=== PATIENT | male | born 1935 | race Caucasian/White ===

== ENCOUNTER 2020-01-11 11:22 | Emergency (ER) | payer MEDICARE, BC, SELFPAY ==
[2020-01-11 11:31] VITALS: BP 153/76; PULSE 79; RESP 16; TEMP 36.2; O2SAT 96
--- NOTE | 2020-01-11 11:43 | ED_ITS ---
HPI - Extremity Injury (Upper) <LENI Hopson - Last Filed: 01/11/20 16:37> General Chief Complaint: Extremity Injury, Upper Stated Complaint: Right hand laceration Time Seen by Provider: 01/11/20 11:31 Source: patient Mode of arrival: Ambulatory Limitations: no limitations History of Present Illness HPI narrative: 84yo male presents to the ED for a laceration on the top of his right hand. Patient states he was trying to take a bolt off a tractor when he hit is hand on the bolt which caused a laceration. Patient is unsure when his last Tdap was. Patient denies any severe pain, difficulty moving his hand, other injuries, redness, swelling, pus, nausea, vomiting, diarrhea, or any other concerns. Related Data Home Medications Medication Instructions Recorded Confirmed aspirin #0 08/26/17 Previous Rx's Medication Instructions Recorded tramadol 50 mg PO Q6H PRN #20 tab 08/26/17 Allergies Allergy/AdvReac Type Severity Reaction Status Date / Time ranitidine [RANITIDINE] Allergy Severe reaction Unverified 09/12/17 13:11 not known. reported from Primary MD Review of Systems <LENI Hopson - Last Filed: 01/11/20 16:37> Review of Systems Narrative: REVIEW OF SYSTEMS: GENERAL: Denies fever or chills. HENT: Denies head trauma. EYE: Denies double vision or vision loss. CARDIOVASCULAR: Denies syncope. MUSCULOSKELETAL: Denies weakness, or deformities. INTEGUMENTARY: Complains of right hand laceration, see HPI. NEURO: Denies numbness or tingling. Patient History <LENI Hopson - Last Filed: 01/11/20 16:37> Medical History No significant medical problems (Acute) Social History Smoking Status: Never smoker Smoking Status: Never smoker alcohol intake frequency: 0-2 drinks per day Substance Use Type: does not use Exam <LENI Hopson - Last Filed: 01/11/20 16:37> Initial Vital Signs Initial Vital Signs: Vital Signs Temperature 97.1 F L 01/11/20 11:31 Pulse Rate 79 01/11/20 11:31 Respiratory Rate 16 01/11/20 11:31 Blood Pressure 153/76 H 01/11/20 11:31 Pulse Oximetry 96 01/11/20 11:31 PHYSICAL EXAMINATION: GENERAL: Well groomed, alert, and cooperative. Answers questions promptly and appropriately. Vital signs noted. HENT: Normocephalic, atraumatic. RESPIRATORY: Normal respiratory rate, trachea midline, airway patent. No stridor, nasal flaring or accessory muscle use. MUSCULOSKELETAL: Full range of motion of right hand and fingers, no tendons visualized. Normal gait and coordination. Equal tone and mass bilaterally. EXTREMITIES: CMS intact. Moves all extremities. SKIN: Warm, dry, soft, appropriate color for ethnicity. 4cm arrow-shaped laceration to lateral aspect of R hand. Wound bed with small amount of sub-Q tissue. Bleeding controlled. No surrounding erythema. No foreign bodies. Wound irrigated extensively. No tenderness palpation of hand, metatarsals, or phalanges. NEURO: Alert and Oriented X 3. Good coordination. PSYCH: Appropriate affect and mood. <Josse Herman MD - Last Filed: 01/11/20 18:49> Initial Vital Signs Initial Vital Signs: Vital Signs Temperature 97.1 F L 01/11/20 11:31 Pulse Rate 79 01/11/20 11:31 Respiratory Rate 16 01/11/20 11:31 Blood Pressure 153/76 H 01/11/20 11:31 Pulse Oximetry 96 01/11/20 11:31 Procedures <LENI Hopson - Last Filed: 01/11/20 16:37> Laceration Repair Laceration 1: Site: upper extremity Side (If applicable): right Size (cm): 4 Description: flap Depth: simple, single layer Local Anesthetic: lidocaine 2% and with epi Amount of anesthesia used (mL): 4 Pre-repair: wound explored and irrigated extensively Skin layer closed with: nylon Size (cm): 4-0 Number of sutures: 4 Technique: simple, interrupted and horizontal mattress Course <LENI Hopson - Last Filed: 01/11/20 16:37> Orders Ordered: Discontinued Medications Bacitracin (Bacitracin) 1 applic TOP NOW ONE Stop: 01/11/20 12:05 Last Admin: 01/11/20 12:10 Dose: 1 applic Documented by: RMARTIN Diphtheria/Tetanus/Acell Pertussis (Adacel) 0.5 ml IM .ONCE ONE Stop: 01/11/20 11:38 Last Admin: 01/11/20 11:44 Dose: 0.5 ml Documented by: MITALI Lidocaine/Epinephrine (Xylocaine 2% W/Epi) 20 ml INJ INTRA-OP ONE Stop: 01/11/20 11:43 Last Admin: 01/11/20 11:45 Dose: 20 ml Documented by: MITALI Vital Signs Vital signs: Vital Signs - 8 hr 01/11/20 11:31 Temperature 97.1 F L Pulse Rate 79 Respiratory Rate 16 Blood Pressure 153/76 H Pulse Oximetry 96 <Josse Herman MD - Last Filed: 01/11/20 18:49> Orders Ordered: Discontinued Medications Bacitracin (Bacitracin) 1 applic TOP NOW ONE Stop: 01/11/20 12:05 Last Admin: 01/11/20 12:10 Dose: 1 applic Documented by: RMARTIN Diphtheria/Tetanus/Acell Pertussis (Adacel) 0.5 ml IM .ONCE ONE Stop: 01/11/20 11:38 Last Admin: 01/11/20 11:44 Dose: 0.5 ml Documented by: MITALI Lidocaine/Epinephrine (Xylocaine 2% W/Epi) 20 ml INJ INTRA-OP ONE Stop: 01/11/20 11:43 Last Admin: 01/11/20 11:45 Dose: 20 ml Documented by: MITALI Vital Signs Vital signs: Vital Signs - 8 hr 01/11/20 11:31 Temperature 97.1 F L Pulse Rate 79 Respiratory Rate 16 Blood Pressure 153/76 H Pulse Oximetry 96 [facility] - Extremity Injury (Upper) <LENI Hopson - Last Filed: 01/11/20 16:37> Medical Records Attestation: I reviewed the patient's medical records. Lab Data Attestation: I reviewed the patient's lab results. MDM Narrative Medical decision making narrative: Simple laceration repair without concern for tendon involvement given superficial nature, subcu tissue visualized amount of Tums visualized, full range of motion against resistance of hand and fingers. Patient's tdap is updated. No signs of infection. No concern for bony involvement due to superficial nature, lack of significant pain with palpation to hand or fingers. Return precautions given, patient verbalized understanding of plan of care. Discharge Plan Departure Patient Disposition: Home Clinical Impression: Laceration Discharge Date/Time: 01/11/20 12:28 Instructions: DI for Laceration Repair Activity Restrictions/Additional Instructions: Thank you for entrusting me with your care today. As discussed, I have placed 4 sutures in your wound, 1 of them is a mattress suture. We have placed bacitracin and gauze on your wound, please leave this dressing on for the next 24 hours. After that, you may remove the dressing and wash the area gently with soap and water. Do not soak your wound in any water until the sutures are removed. The sutures will need to be removed in 10 days. No foreign bodies were found in your wound today. While there is low-risk for infection at this time, retained foreign bodies and infection are always possible with any cut or break in the skin. Please monitor the wound closely and be re-evaluated immediately if you develop any signs of infection such as pus, increasing redness, increasing pain, fevers, or any other concerns. Return emergency department for any new or worsening symptoms. Prescriptions: No Action aspirin 81 MG tablet,delayed release (DR/EC) Qty: 0 RF: 0 tramadol 50 MG tablet 50 mg PO Q6H PRNQty: 20 RF: 0 Referrals: Axel Purvis MD [Primary Care Provider] -
[2020-01-11] MEDS: TET,DIPH,PERTUSS(ACELL),VAC/PF 0.5 ML SYRINGE IM (11:44)
[2020-01-11] MEDS: LIDOCAINE 2% W/EPI INJ 20 ML INJ (11:45)
[2020-01-11] MEDS: BACITRACIN OINT 0.9 GM PCKT 1 APPLIC TOP (12:10)
--- NOTE | 2020-01-11 12:28 | PC.NURSE ---
Bacitracin applied to wound and wound covered with sterile, non-adherent dressing and covered with gauze wrap.
== END 2020-01-11 12:28 | disposition home or self-care (01) ==
PROVIDERS: Emergency Provider Nurse Practitioner; Family Provider Family Medicine; PCP Family Medicine
DX: S61.411A Laceration without foreign body of right hand, initial encounter (principal); W27.8XXA Contact with other nonpowered hand tool, initial encounter; Z23 Encounter for immunization
CPT/HCPCS: 12002; 90471; 99283; 99284; 90715

== ENCOUNTER 2020-03-22 01:09 | Emergency (ER) | payer MEDICARE, BC, SELFPAY ==
--- NOTE | 2020-03-22 01:13 | ED_ITS ---
HPI - Anxiety General Chief Complaint: Altered Mental Status Stated Complaint: has some anxiety Time Seen by Provider: 03/22/20 01:10 Source: patient and family Mode of arrival: Ambulatory Limitations: no limitations History of Present Illness HPI narrative: 84-year-old male nonsmoker with history of GERD presents with his daughter at his 's request due to increasing confusion over the past few months. He has had no specific neurologic complaints such as blurred vision, trouble speech or focal findings such as numbness, tingling or weakness. He has had no change in medications or diet. He has had no injuries or falls. He has had increased difficulty dealing with stressful situations and seems to become flustered and anxious. Most recently the family had a problem with a sump pump and this is something that not only could he normally fix but would certainly not become anxious about, his daughter states that this has kept him awake at night and he has had trouble sleeping for the past 2 nights. He denies any chest pain or shortness of breath. He has had no fever or chills. MD complaint: anxiety Related Data Home Medications Medication Instructions Recorded Confirmed aspirin #0 08/26/17 Previous Rx's Medication Instructions Recorded tramadol 50 mg PO Q6H PRN #20 tab 08/26/17 Allergies Allergy/AdvReac Type Severity Reaction Status Date / Time ranitidine [RANITIDINE] Allergy Severe reaction Unverified 09/12/17 13:11 not known. reported from Primary MD Review of Systems Review of Systems ROS Unobtainable: All systems reviewed & are unremarkable except as noted in HPI and below Constitutional Constitutional: Denies chills, Reports difficulty sleeping, Denies fatigue, Denies fever(s), Denies frequent falls, Denies lethargy and Denies weakness Eyes Eyes: Denies change in vision, Denies eye discharge, Denies irritation and Denies loss of vision ENT Ears, Nose, Mouth, and Throat: Denies change in voice, Denies dizziness, Denies neck pain, Denies sore throat and Denies throat swelling Cardiovascular Cardiovascular: Denies chest pain, Denies irregular heart rhythm, Denies lightheadedness, Denies palpitations, Denies dyspnea, Denies dyspnea on exertion and Denies orthopnea Respiratory Respiratory: Denies cough, Denies dyspnea, Denies dyspnea on exertion and Denies wheezing Gastrointestinal Gastrointestinal: Denies abdominal pain, Denies change in bowel habits, Denies diarrhea, Denies nausea and Denies vomiting Musculoskeletal Musculoskeletal: Denies neck pain and Denies numbness Integumentary/Breasts Skin/Breast: Denies pruritus, Denies erythema, Denies rash and Denies wounds Neurologic Neurologic: Denies behavioral changes, Denies confusion, Denies dizziness, Denie s frequent falls, Denies loss of vision, Denies numbness and Denies weakness Psychiatric Psychiatric: Denies anxiety, Denies behavioral changes, Denies confusion, Denies depression, Denies homicidal ideation and Denies suicidal ideation Endocrine Endocrine: Denies fatigue, Denies flushing and Denies palpitations Hematologic/Lymphatic Hematologic/Lymphatic: Denies easy bruising Allergic/Immunologic Allergic/Immunologic: Denies urticaria, Denies throat swelling and Denies wheezing Patient History Medical History (Updated 03/22/20 @ 02:15 by Alexander Antoine DO) No significant medical problems (Acute) Social History Smoking Status: Never smoker Smoking Status: Never smoker alcohol intake frequency: 0-2 drinks per day Substance Use Type: does not use Exam Narrative Exam Narrative: GENERAL: [84] year old patient appears stated age. Well- nourished, well-developed patient, in mild distress. Pleasantly confused, some repetitive questioning HEAD: Atraumatic. Normocephalic. EYES: Pupils equal round and reactive. Extraocular motions intact. No scleral icterus. No injection or drainage. ENT: Nose without bleeding, purulent drainage. Throat without erythema, tonsillar hypertrophy or exudate. Airway patent. NECK: Trachea midline. Non tender CARDIOVASCULAR: Regular rate and rhythm without murmurs, gallops, or rubs. RESPIRATORY: Clear to auscultation. Breath sounds equal bilaterally. No wheezes, rales, or rhonchi. GASTROINTESTINAL: Abdomen soft, non-tender, nondistended. EXTREMITIES: No edema or joint tenderness. BACK: Nontender without deformity or crepitance. No flank tenderness. NEURO: No focal findings. NIHSS 0 SKIN: No rash or erythema of visible areas Initial Vital Signs Initial Vital Signs: Vital Signs Temperature 97.1 F L 03/22/20 01:15 Pulse Rate 65 03/22/20 01:15 Respiratory Rate 20 03/22/20 01:15 Blood Pressure 175/85 H 03/22/20 01:15 Pulse Oximetry 97 03/22/20 01:15 Scores NIH Stroke Scale Level of Conciousness: Alert, keenly responsive Ask month/age: Answers both questions correctly. Open/close eyes, close hand: Performs both tasks correctly Best gaze horizontal: Normal Visual ha: No visual loss Facial palsy: Normal symetrical movement Left arm drift: No drift for full 10 sec Right arm drift: No drift for full 10 sec Left leg drift: No drift for full 5 sec Right leg drift: No drift for full 5 sec Limb ataxia: Absent Sensory on face/arms/legs: Normal, no sensory loss Best language: No aphasia, normal Dysarthria: Normal Extinction or inattention: No abnormality Total NIH Stroke scale score: 0 Course Orders Ordered: ED Orders 03/22/20 01:30 CT head/brain wo con Stat 03/22/20 01:33 Complete Blood Count AUTO DIFF Stat Comprehensive Metabolic Panel Stat Magnesium Stat Discontinued Medications Sodium Chloride (Normal Saline 0.9%) 1,000 mls @ 125 mls/hr IV CONT BRAD Last Admin: 03/22/20 02:28 Dose: Not Given Documented by: JAYLON Vital Signs Vital signs: Vital Signs - 8 hr 03/22/20 01:15 03/22/20 02:29 Temperature 97.1 F L Pulse Rate 65 58 L Respiratory Rate 20 17 Blood Pressure 175/85 H 160/83 H Pulse Oximetry 97 97 MDM - Anxiety Lab Data Result diagrams: 03/22/20 01:33 03/22/20 01:33 Labs: Lab Results 03/22/20 03/22/20 Range/Units 01:33 01:33 WBC 7.0 (4.5-11.0) X10^3/uL RBC 4.81 (4.5-5.9) X10^6/uL Hgb 14.3 (13.5-17.5) g/dL Hct 43.7 (41-53) % MCV 90.9 (80-100) fL MCH 29.7 (26-34) PG MCHC 32.7 (30-36) % RDW 14.8 (11.6-14.8) % Plt Count 151 (150-400) X10^3/uL Neut % (Auto) 38.8 L (50-75) % Lymph % (Auto) 53.2 H (25-40) % [place] % (Auto) 6.0 (3-14) % Eos % (Auto) 1.5 L (2-4) % Baso % (Auto) 0.5 (0-2) % Neut # (Auto) 2700 (8599-0898) /uL Lymph # (Auto) 3700 (3803-5050) /uL [place] # (Auto) 400 (0-900) /uL Eos # (Auto) 100 (0-450) /uL Baso # (Auto) 0 (0-100) /uL Sodium 140 (137-145) mmol/L Potassium 4.2 (3.4-5.1) mmol/L Chloride 109 H (98-107) mmol/L Carbon Dioxide 26 (22-32) mmol/L BUN 19 (9-20) mg/dL Creatinine 0.86 (0.66-1.25) mg/dL Estimated GFR > 60.0 (>60) mL/min BUN/Creatinine Ratio 22.1 H (6-22) Glucose 92 (80-110) mg/dL Calcium 10.4 H (8.4-10.2) mg/dL Magnesium 2.2 (1.6-2.3) mg/dL Total Bilirubin 1.2 (0.2-1.3) mg/dL AST 27 (17-59) IU/L ALT 20 (<50) IU/L Alkaline Phosphatase 82 (38-126) U/L Total Protein 6.6 (6.3-8.2) g/dL Albumin 3.7 (3.5-5.0) g/dL Globulin 2.9 (1.7-4.1) g/dL Albumin/Globulin Ratio 1.3 (1.0-2.8) Urine Dip Bedside Urine Glucose Negative Bedside Urine Bilirubin - Negative Bedside Urine Ketone - Negative Urine Specific [place] 1.015 Bedside Urine Occult Blood - Negative Bedside Urine pH 6.0 Bedside Urine Protein - Negative Bedside Urine Urobilinogen - Negative Bedside Urine Nitrite - Negative Bedside Urine Leukocytes - Negative Esterase Imaging Data CT scan - head: Radiologist's Impression: Generalized involutional changes noted, consistent with age. No acute abnormality. MDM Narrative Medical decision making narrative: Multiple diagnoses considered including stroke, but thought less likely given lack of focal findings and normal CT. UTI considered, but thought less likely given normal POC. Electrolyte abnormality considered, but no significant findings on labs. These chronic changes could certainly be early dementia, will defer further evaluation to PCP. Return precautions given to patient and daughter, questions answered to apparent satisfaction Discharge Plan Departure Patient Disposition: Home Clinical Impression: Chronic confusion, Anxiety Discharge Date/Time: 03/22/20 02:41 Instructions: DI for Anxiety -- Adult Activity Restrictions/Additional Instructions: *You have been diagnosed with [anxiety and increasing confusion. Your exam, labs, CT scan are all very reassuring. ] *What to do: *Continue to take medications as directed *Follow up with your primary care provider in 2-3 days, call for an appointment. Let them know you were seen in the Emergency Department and that we ask that you be seen in follow up *Return to ER if you should have any new, worsening or concerning symptoms Prescriptions: No Action aspirin 81 MG tablet,delayed release (DR/EC) Qty: 0 RF: 0 tramadol 50 MG tablet 50 mg PO Q6H PRNQty: 20 RF: 0 Referrals: Axel Purvis MD [Primary Care Provider] -
[2020-03-22 01:15] VITALS: BP 175/85; PULSE 65; RESP 20; TEMP 36.2; O2SAT 97; BMI 31.3
--- NOTE | 2020-03-22 01:30 | DI.CT.S_ITS ---
PROCEDURE: CT HEAD/BRAIN WO CON INDICATIONS: confusion, altered, personality change TECHNIQUE: Noncontrast 4.5 mm thick angled axial sections acquired from the foramen magnum to the vertex, with coronal and sagittal reformats. For radiation dose reduction, the following was used: automated exposure control, adjustment of mA and/or kV according to patient size. COMPARISON: [facility], CT, SOFT TISSUE NECK W&WO CONTRAST, 09/29/2016, 8:03. [facility], MR, BRAIN W&WO CONTRAST, 09/06/2016, 10:51. FINDINGS: Image quality: Excellent. CSF spaces: Basal cisterns are patent. No extra-axial fluid collections. The ventricles are symmetric in size and shape. Brain: No intracranial bleeds or masses. There is cerebral volume loss for age, with resultant ventricular and sulcal prominence. There are periventricular and deep white matter chronic small vessel ischemic changes. There is intracranial internal carotid artery atherosclerosis. Low attenuation is present in the left frontal lobe, possibly related to old ischemia or trauma. It is unchanged. Skull and face: Calvarium and visualized facial bones appear intact, without suspicious lesions. Sinuses: Visualized sinuses and mastoids are clear. IMPRESSION: 1. No acute intracranial process. 2. Moderate atrophy and chronic microvascular ischemic changes. The above findings are concordant with preliminary report. Dictated by: Kenyatta Mejia M.D. on 03/22/2020 at 9:20 Approved by: Kenyatta Mejia M.D. on 03/22/2020 at 9:21
[2020-03-22 01:44] LABS: Add Manual Diff / Slide Review NO; Basophils Absolute Auto 0 /uL (0-100); Basophils Percent Auto 0.5 % (0-2); Eosinophils Absolute Auto 100 /uL (0-450); Eosinophils Percent Auto 1.5 % (2-4); Hematocrit 43.7 % (41-53); Hemoglobin 14.3 g/dL (13.5-17.5); Lymphocytes Absolute Auto 3700 /uL (1100-4500); Lymphocytes Percent Auto 53.2 % (25-40); Mean Corpuscular HGB Conc 32.7 % (30-36); Mean Corpuscular Hemoglobin 29.7 PG (26-34); Mean Corpuscular Volume 90.9 fL (80-100); Monocytes Absolute Auto 400 /uL (0-900); Neutrophils Absolute Auto 2700 /uL (1500-7000); Neutrophils Percent Auto 38.8 % (50-75); Platelet Count 151 X10^3/uL (150-400); Red Blood Cell Count 4.81 X10^6/uL (4.5-5.9); Red Cell Distribution Width 14.8 % (11.6-14.8)
[2020-03-22 01:51] LABS: Alanine Aminotransferase 20 IU/L (<50); Albumin 3.7 g/dL (3.5-5.0); Albumin Globulin Ratio 1.3 (1.0-2.8); Alkaline Phosphatase 82 U/L (38-126); Aspartate Aminotransferase 27 IU/L (17-59); BUN Creatinine Ratio 22.1 (6-22); Bilirubin Total 1.2 mg/dL (0.2-1.3); Blood Urea Nitrogen 19 mg/dL (9-20); Calcium 10.4 mg/dL (8.4-10.2); Carbon Dioxide 26 mmol/L (22-32); Chloride 109 mmol/L (98-107); Estimated Glomerular Filt Rate > 60.0 mL/min (>60); Globulin 2.9 g/dL (1.7-4.1); Glucose 92 mg/dL (80-110); HEMOLYSIS < 15 (0-50); Magnesium 2.2 mg/dL (1.6-2.3); Potassium 4.2 mmol/L (3.4-5.1); Sodium 140 mmol/L (137-145); Total Protein 6.6 g/dL (6.3-8.2)
[2020-03-22 02:29] VITALS: BP 160/83; PULSE 58; RESP 17; O2SAT 97
== END 2020-03-22 02:41 | disposition home or self-care (01) ==
PROVIDERS: Emergency Provider Emergency Medicine; Family Provider Family Medicine; PCP Family Medicine
DX: R41.0 Disorientation, unspecified (principal); F41.9 Anxiety disorder, unspecified
CPT/HCPCS: 36415; 70450; 80053; 81003; 83735; 85025; 93005; 93010; 99283; 99284

== ENCOUNTER 2021-07-02 13:25 | Inpatient (IN) | payer MEDICARE, BC, SELFPAY ==
[2021-07-02] VITALS (52 sets, daily range): BP systolic 92–162; BP diastolic 54–94; PULSE 56–72; RESP 18–41; TEMP 36.7; O2SAT 92–98
--- NOTE | 2021-07-02 13:49 | DI.RAD.S_ITS ---
PROCEDURE: XR CHEST 1V INDICATIONS: chest pain TECHNIQUE: One view of the chest was acquired. COMPARISON: None. FINDINGS: Surgical changes and devices: None. Lungs and pleura: Minimal bibasilar atelectasis and or infiltrate accentuated by low lung volumes. Mediastinum: Mediastinal contours appear normal. Heart size is normal. Atherosclerotic vascular calcification noted in the aortic arch. Bones and chest wall: No suspicious bony lesions. Overlying soft tissues appear unremarkable. IMPRESSION: Minimal bibasilar atelectasis and infiltrate accentuated by low lung volumes Approved by: Memo Villagran M.D. on 07/02/2021 at 14:32
[2021-07-02 14:07] LABS: Add Manual Diff / Slide Review NO; Basophils Absolute Auto 0 /uL (0-100); Basophils Percent Auto 0.3 % (0-2); Eosinophils Absolute Auto 0 /uL (0-450); Hematocrit 41.8 % (41-53); Hemoglobin 14.1 g/dL (13.5-17.5); Lymphocytes Absolute Auto 2700 /uL (1100-4500); Lymphocytes Percent Auto 30.3 % (25-40); Mean Corpuscular HGB Conc 33.7 % (30-36); Mean Corpuscular Hemoglobin 29.7 PG (26-34); Mean Corpuscular Volume 88.3 fL (80-100); Monocytes Absolute Auto 800 /uL (0-900); Monocytes Percent Auto 8.6 % (3-14); Neutrophils Absolute Auto 5500 /uL (1500-7000); Neutrophils Percent Auto 60.8 % (50-75); Platelet Count 109 X10^3/uL (150-400); Red Blood Cell Count 4.74 X10^6/uL (4.5-5.9); Red Cell Distribution Width 15.2 % (11.6-14.8)
[2021-07-02 14:12] LABS: INR 1.2 (0.9-1.3); Prothrombin Time 13.1 SECONDS (10.1-12.7)
[2021-07-02 14:14] LABS: PTT Partial Thromboplastin Tim 29 SECONDS (26.4-36.2)
[2021-07-02 14:16] LABS: Alanine Aminotransferase 30 IU/L (<50); Albumin 3.9 g/dL (3.5-5.0); Albumin Globulin Ratio 1.4 (1.0-2.8); Alkaline Phosphatase 69 U/L (38-126); Aspartate Aminotransferase 77 IU/L (17-59); BUN Creatinine Ratio 24.4 (6-22); Bilirubin Total 0.9 mg/dL (0.2-1.3); Blood Urea Nitrogen 31 mg/dL (9-20); Calcium 10.4 mg/dL (8.4-10.2); Carbon Dioxide 23 mmol/L (22-32); Chloride 107 mmol/L (98-107); Estimated Glomerular Filt Rate 54.2 mL/min (>60); Globulin 2.7 g/dL (1.7-4.1); Glucose 120 mg/dL (80-110); Lipase 44 U/L (23-300); Magnesium 2.1 mg/dL (1.6-2.3); Potassium 3.8 mmol/L (3.4-5.1); Sodium 137 mmol/L (137-145); Total Protein 6.6 g/dL (6.3-8.2)
[2021-07-02 14:22] LABS: Creatine Kinase 2126 U/L (55-170)
[2021-07-02 14:28] LABS: NT-proBNP (BNP-Adult 18+) 646 pg/mL (<450); Troponin I 0.106 ng/mL (0.01-0.034)
[2021-07-02 14:36] LABS: COVID19 -Nasal RAPID POSITIVE (Negative)
[2021-07-02] MEDS: SODIUM CHLORIDE 0.9% 1,000 ML 125 ML IV (14:36)
[2021-07-02 14:48] LABS: CKMB % Relative Index 0.7 % (1.5-5.0); HEMOLYSIS 19 (0-50)
--- NOTE | 2021-07-02 15:32 | ED_ITS ---
HPI - General Adult <Corry Hanson MD - Last Filed: 07/03/21 14:55> General Chief complaint: Weakness Stated complaint: DEHYDRATED,FALL,COUGH Time Seen by Provider: 07/02/21 14:36 Source: patient and family Mode of arrival: Wheelchair History of Present Illness HPI narrative: 85-year-old gentleman with a history of prostate cancer, hyperlipidemia no prior coronary artery disease vaccinated against COVID presents complaining of weakness. Apparently he would stand up this morning was so weak that he simply slumped to the floor(did not hurt himself with this fall) and was unable to get up. His daughter notes that she was up visiting 1 week ago and he was in his usual state of good health at that time. Six days ago he apparently developed a slight cough. Throughout all of this time he has had no dyspnea, orthopnea, palpitations, overt chest pain, localizing weakness or paresthesia, headaches or fevers.He is very hard of hearing. Related Data Home Medications Medication Instructions Recorded Confirmed aspirin 81 mg tablet,delayed 81 mg PO DAILY #0 08/26/17 07/02/21 release donepezil 5 mg tablet 5 mg PO BEDTIME 07/02/21 07/02/21 escitalopram oxalate 10 mg tablet 10 mg PO DAILY 07/02/21 07/02/21 mirtazapine 15 mg tablet 7.5 mg PO BEDTIME 07/02/21 07/02/21 rosuvastatin 20 mg tablet 20 mg PO BEDTIME 07/02/21 07/02/21 Allergies Allergy/AdvReac Type Severity Reaction Status Date / Time ranitidine [RANITIDINE] Allergy Severe reaction Verified 07/02/21 13:55 not known. reported from Primary MD Review of Systems <Corry Hanson MD - Last Filed: 07/03/21 14:55> Review of Systems Narrative: Remainder of complete review of systems is otherwise unremarkable except for that included in the HPI. Patient History <Corry Hanson MD - Last Filed: 07/03/21 14:55> Medical History COVID-19 Hyperlipidemia No significant medical problems Prostate cancer Surgical History H/O hemorrhoidectomy History of herniorrhaphy Hx of cholecystectomy Social History household members: spouse, family and children Smoking Status: Never smoker Smoking Status: Never smoker alcohol intake frequency: 0-2 drinks per day Substance Use Type: does not use Exam <Corry Hanson MD - Last Filed: 07/03/21 14:55> Initial Vital Signs Initial Vital Signs: Vital Signs Temperature 98.1 F 07/02/21 13:30 Pulse Rate 68 07/02/21 13:30 Respiratory Rate 22 07/02/21 13:30 Blood Pressure 145/74 H 07/02/21 13:30 Pulse Oximetry 92 07/02/21 13:30 General: Healthy appearing, in no acute distress. Very hard of hearing Well- nourished well-developed HEENT: Moist mucous membranes, normal sclera with reactive pupils, Neck: No JVD, supple Respiratory: Lungs are clear to auscultation, no wheezing no rales no rhonchi. Full and symmetrical air movement Cardiac: Regular rate and rhythm no murmurs no bruits Abdomen: Soft, nontender, good bowel tones, no flank pain Skin: Warm and dry, no rashes Neurologic: Globally weak but Grossly neurologically intact with no obvious asymmetries or abnormalities Extremities: No trauma, well perfused Psych: Cooperative, appropriate insight and affect <Gaby Rebolledo DO - Last Filed: 07/04/21 00:18> Initial Vital Signs Initial Vital Signs: Vital Signs Temperature 98.1 F 07/02/21 13:30 Pulse Rate 68 07/02/21 13:30 Respiratory Rate 22 07/02/21 13:30 Blood Pressure 145/74 H 07/02/21 13:30 Pulse Oximetry 92 07/02/21 13:30 Course <Corry Hanson MD - Last Filed: 07/03/21 14:55> Orders Ordered: ED Orders 07/03/21 15:30 PTT [Partial Thromboplastin Time] Q6H Acetaminophen (Acetaminophen 325 Mg Tablet) 650 mg PO Q6HR PRN PRN Reason: Fever Aspirin (Aspirin Ec 81 Mg Tablet) 81 mg PO DAILY BRAD Last Admin: 07/03/21 10:20 Dose: 81 mg Documented by: MALIKA Docusate Sodium (Docusate 100 Mg Capsule) 100 mg PO BID [facility] Last Admin: 07/03/21 20:54 Dose: 100 mg Documented by: [email or web address] Donepezil HCl (Donepezil 5 Mg Tablet) 5 mg PO BEDTIME [facility] Last Admin: 07/03/21 20:54 Dose: 5 mg Documented by: [email or web address] Admin: 07/02/21 20:43 Dose: 5 mg Documented by: ALEKSANDRA Escitalopram Oxalate (Escitalopram 10 Mg Tablet) 10 mg PO DAILY [facility] Last Admin: 07/03/21 10:20 Dose: 10 mg Documented by: MALIKA Heparin Sodium/Dextrose (Heparin Drip) 25,000 unit in 500 mls @ 20 mls/hr IV CONT BRAD; Protocol Last Admin: 07/03/21 20:35 Dose: 800 units/hr, 16 mls/hr Documented by: [email or web address] Titration: 07/03/21 20:35 Dose: 800 units/hr, 16 mls/hr Documented by: [email or web address] Titration: 07/03/21 05:19 Dose: 800 units/hr, 16 mls/hr Documented by: Titration: 07/02/21 23:51 Dose: 850 units/hr, 17 mls/hr Documented by: Titration: 07/02/21 22:49 Dose: 0 units/hr, 0 mls/hr Documented by: Admin: 07/02/21 15:57 Dose: 1,000 units/hr, 20 mls/hr Documented by: ALEKSANDRA Magnesium Hydroxide (Magnesium Hydroxide 30 Ml Udc) 30 ml PO BID [facility] Last Admin: 07/03/21 20:57 Dose: 30 ml Documented by: [email or web address] Metoprolol Tartrate (Metoprolol Ir 25 Mg Tablet) 25 mg PO BID [facility] Last Admin: 07/03/21 17:35 Dose: Not Given Documented by: Admin: 07/03/21 17:34 Dose: 25 mg Documented by: CHRIS Mirtazapine (Mirtazapine 15 Mg Tablet) 7.5 mg PO BEDTIME [facility] Last Admin: 07/03/21 20:54 Dose: 7.5 mg Documented by: [email or web address] Admin: 07/02/21 20:43 Dose: 7.5 mg Documented by: ALEKSANDRA Morphine Sulfate (Morphine 2 Mg/Ml Inj) 2 mg IV Q5MIN PRN PRN Reason: Chest Pain Naloxone HCl (Naloxone 0.4 Mg/Ml Vial) 0.2 mg IV Q2MIN PRN PRN Reason: Opiate Reversal Nitroglycerin (Nitroglycerin 0.4 Mg Sl Tab) 0.4 mg SL [id number] PRN PRN Reason: Chest Pain Pantoprazole Sodium (Pantoprazole Dr 40 Mg Tablet) 40 mg PO 0700 [facility] Discontinued Medications Aspirin (Aspirin 81 Mg Chew Tab) 324 mg PO NOW ONE Stop: 07/02/21 17:38 Last Admin: 07/02/21 17:51 Dose: 324 mg Documented by: ALEKSANDRA Atorvastatin Calcium (Atorvastatin 20 Mg Tablet) 80 mg PO NOW ONE Stop: 07/02/21 21:34 Last Admin: 07/02/21 22:34 Dose: 80 mg Documented by: ALEKSANDRA Donepezil HCl (Donepezil 5 Mg Tablet) 5 mg PO BEDTIME [facility] Escitalopram Oxalate (Escitalopram 10 Mg Tablet) 10 mg PO DAILY [facility] Heparin Sodium (Porcine) (Heparin 5,000 Unit/Ml Vial) 5,000 unit IV NOW ONE Stop: 07/02/21 15:44 Last Admin: 07/02/21 15:56 Dose: 5,000 unit Documented by: ALEKSANDRA Sodium Chloride (Normal Saline 0.9%) 1,000 mls @ 125 mls/hr IV BOLUS ONE Stop: 07/02/21 21:57 Last Infusion: 07/02/21 15:42 Dose: 0 mls/hr Documented by: Admin: 07/02/21 14:36 Dose: 125 mls/hr Documented by: ALEKSANDRA Sodium Chloride (Normal Saline 0.9%) 500 mls @ 1,000 mls/hr IV BOLUS ONE Stop: 07/02/21 16:12 Last Infusion: 07/02/21 17:06 Dose: 0 mls/hr Documented by: Admin: 07/02/21 15:58 Dose: 1,000 mls/hr Documented by: ALEKSANDRA Heparin Sodium/Dextrose (Heparin Drip) 25,000 unit in 500 mls @ 21.816 mls/hr IV CONT BRAD; Protocol Last Admin: 07/03/21 18:23 Dose: Not Given Documented by: CHRIS Heparin Sodium/Dextrose (Heparin Drip) 25,000 unit in 500 mls @ 21.816 mls/hr IV CONT BRAD; Protocol Last Admin: 07/03/21 18:23 Dose: Not Given Documented by: CHRIS Mirtazapine (Mirtazapine 15 Mg Tablet) 7.5 mg PO BEDTIME [facility] Naloxone HCl (Naloxone 0.4 Mg/Ml Vial) 0.2 mg IV Q2MIN PRN PRN Reason: Opiate Reversal Naloxone HCl (Naloxone 0.4 Mg/Ml Vial) 0.2 mg IV Q2MIN PRN PRN Reason: Opiate Reversal Vital Signs Vital signs: Vital Signs - 8 hr 07/03/21 07:00 07/03/21 07:15 07/03/21 07:30 Pulse Rate 77 70 76 Respiratory Rate 29 H 27 H 23 Blood Pressure 126/73 126/72 121/68 Pulse Oximetry 92 93 94 07/03/21 07:45 07/03/21 08:00 07/03/21 08:15 Pulse Rate 72 70 75 Respiratory Rate 31 H 29 H 34 H Blood Pressure 116/63 131/76 113/68 Pulse Oximetry 92 92 92 07/03/21 08:30 07/03/21 08:45 07/03/21 09:00 Pulse Rate 80 80 79 Respiratory Rate 32 H 34 H 32 H Blood Pressure 118/70 127/71 125/63 Pulse Oximetry 91 92 92 07/03/21 09:15 07/03/21 09:16 07/03/21 09:30 Pulse Rate 89 87 86 Respiratory Rate 31 H 28 H 32 H Blood Pressure 126/69 114/66 Pulse Oximetry 93 07/03/21 09:45 07/03/21 10:00 07/03/21 10:15 Pulse Rate 75 73 77 Respiratory Rate 32 H 28 H 23 Blood Pressure 115/62 125/69 125/69 Pulse Oximetry 91 92 93 07/03/21 10:30 07/03/21 10:45 07/03/21 11:00 Pulse Rate 78 69 71 Respiratory Rate 31 H 34 H 32 H Blood Pressure 134/69 117/64 125/67 Pulse Oximetry 93 92 94 07/03/21 11:15 07/03/21 11:30 07/03/21 11:31 Pulse Rate 71 75 77 Respiratory Rate 30 H 29 H 31 H Blood Pressure 112/60 113/55 L Pulse Oximetry 93 93 93 07/03/21 11:45 07/03/21 12:00 07/03/21 12:15 Pulse Rate 72 75 79 Respiratory Rate 28 H 32 H 31 H Blood Pressure 129/71 121/68 136/67 Pulse Oximetry 93 94 92 07/03/21 12:30 07/03/21 12:45 07/03/21 12:46 Pulse Rate 80 79 79 Respiratory Rate 32 H 32 H 32 H Blood Pressure 124/66 99/58 L Pulse Oximetry 93 92 91 07/03/21 13:00 07/03/21 13:15 07/03/21 13:30 Pulse Rate 70 74 71 Respiratory Rate 29 H 29 H 31 H Blood Pressure 117/59 L 124/69 120/63 Pulse Oximetry 91 92 92 07/03/21 13:45 Pulse Rate 70 Respiratory Rate 29 H Blood Pressure 101/61 Pulse Oximetry 92 <Gaby Rebolledo DO - Last Filed: 07/04/21 00:18> Orders Ordered: ED Orders 07/03/21 15:30 PTT [Partial Thromboplastin Time] Q6H Acetaminophen (Acetaminophen 325 Mg Tablet) 650 mg PO Q6HR PRN PRN Reason: Fever Aspirin (Aspirin Ec 81 Mg Tablet) 81 mg PO DAILY [facility] Last Admin: 07/03/21 10:20 Dose: 81 mg Documented by: MALIKA Docusate Sodium (Docusate 100 Mg Capsule) 100 mg PO BID [facility] Last Admin: 07/03/21 20:54 Dose: 100 mg Documented by: [email or web address] Donepezil HCl (Donepezil 5 Mg Tablet) 5 mg PO BEDTIME [facility] Last Admin: 07/03/21 20:54 Dose: 5 mg Documented by: [email or web address] Admin: 07/02/21 20:43 Dose: 5 mg Documented by: ALEKSANDRA Escitalopram Oxalate (Escitalopram 10 Mg Tablet) 10 mg PO DAILY [facility] Last Admin: 07/03/21 10:20 Dose: 10 mg Documented by: MALIKA Heparin Sodium/Dextrose (Heparin Drip) 25,000 unit in 500 mls @ 20 mls/hr IV CONT BRAD; Protocol Last Admin: 07/03/21 20:35 Dose: 800 units/hr, 16 mls/hr Documented by: [email or web address] Titration: 07/03/21 20:35 Dose: 800 units/hr, 16 mls/hr Documented by: [email or web address] Titration: 07/03/21 05:19 Dose: 800 units/hr, 16 mls/hr Documented by: Titration: 07/02/21 23:51 Dose: 850 units/hr, 17 mls/hr Documented by: Titration: 07/02/21 22:49 Dose: 0 units/hr, 0 mls/hr Documented by: Admin: 07/02/21 15:57 Dose: 1,000 units/hr, 20 mls/hr Documented by: ALEKSANDRA Magnesium Hydroxide (Magnesium Hydroxide 30 Ml Udc) 30 ml PO BID [facility] Last Admin: 07/03/21 20:57 Dose: 30 ml Documented by: [email or web address] Metoprolol Tartrate (Metoprolol Ir 25 Mg Tablet) 25 mg PO BID [facility] Last Admin: 07/03/21 17:35 Dose: Not Given Documented by: Admin: 07/03/21 17:34 Dose: 25 mg Documented by: CHRIS Mirtazapine (Mirtazapine 15 Mg Tablet) 7.5 mg PO BEDTIME [facility] Last Admin: 07/03/21 20:54 Dose: 7.5 mg Documented by: [email or web address] Admin: 07/02/21 20:43 Dose: 7.5 mg Documented by: ALEKSANDRA Morphine Sulfate (Morphine 2 Mg/Ml Inj) 2 mg IV Q5MIN PRN PRN Reason: Chest Pain Naloxone HCl (Naloxone 0.4 Mg/Ml Vial) 0.2 mg IV Q2MIN PRN PRN Reason: Opiate Reversal Nitroglycerin (Nitroglycerin 0.4 Mg Sl Tab) 0.4 mg SL [id number] PRN PRN Reason: Chest Pain Pantoprazole Sodium (Pantoprazole Dr 40 Mg Tablet) 40 mg PO 0700 [facility] Discontinued Medications Aspirin (Aspirin 81 Mg Chew Tab) 324 mg PO NOW ONE Stop: 07/02/21 17:38 Last Admin: 07/02/21 17:51 Dose: 324 mg Documented by: ALEKSANDRA Atorvastatin Calcium (Atorvastatin 20 Mg Tablet) 80 mg PO NOW ONE Stop: 07/02/21 21:34 Last Admin: 07/02/21 22:34 Dose: 80 mg Documented by: ALEKSANDRA Donepezil HCl (Donepezil 5 Mg Tablet) 5 mg PO BEDTIME [facility] Escitalopram Oxalate (Escitalopram 10 Mg Tablet) 10 mg PO DAILY [facility] Heparin Sodium (Porcine) (Heparin 5,000 Unit/Ml Vial) 5,000 unit IV NOW ONE Stop: 07/02/21 15:44 Last Admin: 07/02/21 15:56 Dose: 5,000 unit Documented by: ALEKSANDRA Sodium Chloride (Normal Saline 0.9%) 1,000 mls @ 125 mls/hr IV BOLUS ONE Stop: 07/02/21 21:57 Last Infusion: 07/02/21 15:42 Dose: 0 mls/hr Documented by: Admin: 07/02/21 14:36 Dose: 125 mls/hr Documented by: KOBEI Sodium Chloride (Normal Saline 0.9%) 500 mls @ 1,000 mls/hr IV BOLUS ONE Stop: 07/02/21 16:12 Last Infusion: 07/02/21 17:06 Dose: 0 mls/hr Documented by: Admin: 07/02/21 15:58 Dose: 1,000 mls/hr Documented by: ALEKSANDRA Heparin Sodium/Dextrose (Heparin Drip) 25,000 unit in 500 mls @ 21.816 mls/hr IV CONT BRAD; Protocol Last Admin: 07/03/21 18:23 Dose: Not Given Documented by: CHRIS Heparin Sodium/Dextrose (Heparin Drip) 25,000 unit in 500 mls @ 21.816 mls/hr IV CONT BRAD; Protocol Last Admin: 07/03/21 18:23 Dose: Not Given Documented by: CHRIS Mirtazapine (Mirtazapine 15 Mg Tablet) 7.5 mg PO BEDTIME [facility] Naloxone HCl (Naloxone 0.4 Mg/Ml Vial) 0.2 mg IV Q2MIN PRN PRN Reason: Opiate Reversal Naloxone HCl (Naloxone 0.4 Mg/Ml Vial) 0.2 mg IV Q2MIN PRN PRN Reason: Opiate Reversal Vital Signs Vital signs: Vital Signs - 8 hr 07/03/21 07:00 07/03/21 07:15 07/03/21 07:30 Pulse Rate 77 70 76 Respiratory Rate 29 H 27 H 23 Blood Pressure 126/73 126/72 121/68 Pulse Oximetry 92 93 94 07/03/21 07:45 07/03/21 08:00 07/03/21 08:15 Pulse Rate 72 70 75 Respiratory Rate 31 H 29 H 34 H Blood Pressure 116/63 131/76 113/68 Pulse Oximetry 92 92 92 07/03/21 08:30 07/03/21 08:45 07/03/21 09:00 Pulse Rate 80 80 79 Respiratory Rate 32 H 34 H 32 H Blood Pressure 118/70 127/71 125/63 Pulse Oximetry 91 92 92 07/03/21 09:15 07/03/21 09:16 07/03/21 09:30 Pulse Rate 89 87 86 Respiratory Rate 31 H 28 H 32 H Blood Pressure 126/69 114/66 Pulse Oximetry 93 07/03/21 09:45 07/03/21 10:00 07/03/21 10:15 Pulse Rate 75 73 77 Respiratory Rate 32 H 28 H 23 Blood Pressure 115/62 125/69 125/69 Pulse Oximetry 91 92 93 07/03/21 10:30 07/03/21 10:45 07/03/21 11:00 Pulse Rate 78 69 71 Respiratory Rate 31 H 34 H 32 H Blood Pressure 134/69 117/64 125/67 Pulse Oximetry 93 92 94 07/03/21 11:15 07/03/21 11:30 07/03/21 11:31 Pulse Rate 71 75 77 Respiratory Rate 30 H 29 H 31 H Blood Pressure 112/60 113/55 L Pulse Oximetry 93 93 93 07/03/21 11:45 07/03/21 12:00 07/03/21 12:15 Pulse Rate 72 75 79 Respiratory Rate 28 H 32 H 31 H Blood Pressure 129/71 121/68 136/67 Pulse Oximetry 93 94 92 07/03/21 12:30 07/03/21 12:45 07/03/21 12:46 Pulse Rate 80 79 79 Respiratory Rate 32 H 32 H 32 H Blood Pressure 124/66 99/58 L Pulse Oximetry 93 92 91 07/03/21 13:00 07/03/21 13:15 07/03/21 13:30 Pulse Rate 70 74 71 Respiratory Rate 29 H 29 H 31 H Blood Pressure 117/59 L 124/69 120/63 Pulse Oximetry 91 92 92 07/03/21 13:45 Pulse Rate 70 Respiratory Rate 29 H Blood Pressure 101/61 Pulse Oximetry 92 Medical Decision Making <Corry Hanson MD - Last Filed: 07/03/21 14:55> Lab Data Result diagrams: 07/03/21 15:30 07/03/21 04:45 Labs: Lab Results 07/02/21 07/02/21 07/02/21 Range/Units 13:40 13:45 13:45 WBC 9.0 (4.5-11.0) X10^3/uL RBC 4.74 (4.5-5.9) X10^6/uL Hgb 14.1 (13.5-17.5) g/dL Hct 41.8 (41-53) % MCV 88.3 (80-100) fL MCH 29.7 (26-34) PG MCHC 33.7 (30-36) % RDW 15.2 H (11.6-14.8) % Plt Count 109 L (150-400) X10^3/uL Neut % (Auto) 60.8 (50-75) % Lymph % (Auto) 30.3 (25-40) % [place] % (Auto) 8.6 (3-14) % Eos % (Auto) 0.0 L (2-4) % Baso % (Auto) 0.3 (0-2) % Neut # (Auto) 5500 (9299-5477) /uL Lymph # (Auto) 2700 (2780-5726) /uL [place] # (Auto) 800 (0-900) /uL Eos # (Auto) 0 (0-450) /uL Baso # (Auto) 0 (0-100) /uL PT 13.1 H (10.1-12.7) SECONDS INR 1.2 (0.9-1.3) APTT 29 (26.4-36.2) SECONDS Sodium (137-145) mmol/L Potassium (3.4-5.1) mmol/L Chloride (98-107) mmol/L Carbon Dioxide (22-32) mmol/L BUN (9-20) mg/dL Creatinine (0.66-1.25) mg/dL Estimated GFR (>60) mL/min BUN/Creatinine Ratio (6-22) Glucose (80-110) mg/dL Calcium (8.4-10.2) mg/dL Magnesium (1.6-2.3) mg/dL Total Bilirubin (0.2-1.3) mg/dL AST (17-59) IU/L ALT (<50) IU/L Alkaline Phosphatase (38-126) U/L Total Creatine Kinase (55-170) U/L CK-MB (CK-2) (<2.37) ng/mL CK-MB (CK-2) Rel Index (1.5-5.0) % Troponin I (0.01-0.034) ng/mL NT-Pro-B Natriuret Pep (<450) pg/mL Total Protein (6.3-8.2) g/dL Albumin (3.5-5.0) g/dL Globulin (1.7-4.1) g/dL Albumin/Globulin Ratio (1.0-2.8) Lipase (23-300) U/L Urine RBC (0-5/HPF) Urine WBC (0-5/HPF) Urine Bacteria (None) Ur Culture Indicated? SARS-CoV-2 (PCR) Positive H (Negative) 07/02/21 07/02/21 07/02/21 Range/Units 13:45 15:05 16:10 WBC (4.5-11.0) X10^3/uL RBC (4.5-5.9) X10^6/uL Hgb (13.5-17.5) g/dL Hct (41-53) % MCV (80-100) fL MCH (26-34) PG MCHC (30-36) % RDW (11.6-14.8) % Plt Count (150-400) X10^3/uL Neut % (Auto) (50-75) % Lymph % (Auto) (25-40) % [place] % (Auto) (3-14) % Eos % (Auto) (2-4) % Baso % (Auto) (0-2) % Neut # (Auto) (1286-8578) /uL Lymph # (Auto) (8047-9506) /uL [place] # (Auto) (0-900) /uL Eos # (Auto) (0-450) /uL Baso # (Auto) (0-100) /uL PT (10.1-12.7) SECONDS INR (0.9-1.3) APTT (26.4-36.2) SECONDS Sodium 137 (137-145) mmol/L Potassium 3.8 (3.4-5.1) mmol/L Chloride 107 (98-107) mmol/L Carbon Dioxide 23 (22-32) mmol/L BUN 31 H (9-20) mg/dL Creatinine 1.27 H (0.66-1.25) mg/dL Estimated GFR 54.2 L (>60) mL/min BUN/Creatinine Ratio 24.4 H (6-22) Glucose 120 H (80-110) mg/dL Calcium 10.4 H (8.4-10.2) mg/dL Magnesium 2.1 (1.6-2.3) mg/dL Total Bilirubin 0.9 (0.2-1.3) mg/dL AST 77 H (17-59) IU/L ALT 30 (<50) IU/L Alkaline Phosphatase 69 (38-126) U/L Total Creatine Kinase 2126 H (55-170) U/L CK-MB (CK-2) 14.10 H (<2.37) ng/mL CK-MB (CK-2) Rel Index 0.7 L (1.5-5.0) % Troponin I 0.106 H 0.129 H* (0.01-0.034) ng/mL NT-Pro-B Natriuret Pep 646 H (<450) pg/mL Total Protein 6.6 (6.3-8.2) g/dL Albumin 3.9 (3.5-5.0) g/dL Globulin 2.7 (1.7-4.1) g/dL Albumin/Globulin Ratio 1.4 (1.0-2.8) Lipase 44 (23-300) U/L Urine RBC 0-1/hpf (0-5/HPF) Urine WBC 0-1/hpf (0-5/HPF) Urine Bacteria None seen (None) Ur Culture Indicated? Cult not indicated SARS-CoV-2 (PCR) (Negative) 07/02/21 07/02/21 07/02/21 Range/Units 16:10 22:21 22:21 WBC (4.5-11.0) X10^3/uL RBC (4.5-5.9) X10^6/uL Hgb (13.5-17.5) g/dL Hct (41-53) % MCV (80-100) fL MCH (26-34) PG MCHC (30-36) % RDW (11.6-14.8) % Plt Count (150-400) X10^3/uL Neut % (Auto) (50-75) % Lymph % (Auto) (25-40) % [place] % (Auto) (3-14) % Eos % (Auto) (2-4) % Baso % (Auto) (0-2) % Neut # (Auto) (9375-7986) /uL Lymph # (Auto) (2909-5499) /uL [place] # (Auto) (0-900) /uL Eos # (Auto) (0-450) /uL Baso # (Auto) (0-100) /uL PT (10.1-12.7) SECONDS INR (0.9-1.3) APTT 146 H* D 138 H* (26.4-36.2) SECONDS Sodium (137-145) mmol/L Potassium (3.4-5.1) mmol/L Chloride (98-107) mmol/L Carbon Dioxide (22-32) mmol/L BUN (9-20) mg/dL Creatinine (0.66-1.25) mg/dL Estimated GFR (>60) mL/min BUN/Creatinine Ratio (6-22) Glucose (80-110) mg/dL Calcium (8.4-10.2) mg/dL Magnesium (1.6-2.3) mg/dL Total Bilirubin (0.2-1.3) mg/dL AST (17-59) IU/L ALT (<50) IU/L Alkaline Phosphatase (38-126) U/L Total Creatine Kinase (55-170) U/L CK-MB (CK-2) (<2.37) ng/mL CK-MB (CK-2) Rel Index (1.5-5.0) % Troponin I 0.144 H* (0.01-0.034) ng/mL NT-Pro-B Natriuret Pep (<450) pg/mL Total Protein (6.3-8.2) g/dL Albumin (3.5-5.0) g/dL Globulin (1.7-4.1) g/dL Albumin/Globulin Ratio (1.0-2.8) Lipase (23-300) U/L Urine RBC (0-5/HPF) Urine WBC (0-5/HPF) Urine Bacteria (None) Ur Culture Indicated? SARS-CoV-2 (PCR) (Negative) 07/03/21 07/03/21 07/03/21 Range/Units 04:45 04:45 04:45 WBC 7.0 (4.5-11.0) X10^3/uL RBC 4.86 (4.5-5.9) X10^6/uL Hgb 14.3 (13.5-17.5) g/dL Hct 42.7 (41-53) % MCV 87.9 (80-100) fL MCH 29.4 (26-34) PG MCHC 33.4 (30-36) % RDW 15.0 H (11.6-14.8) % Plt Count 106 L (150-400) X10^3/uL Neut % (Auto) 54.8 (50-75) % Lymph % (Auto) 38.0 (25-40) % [place] % (Auto) 6.6 (3-14) % Eos % (Auto) 0.4 L (2-4) % Baso % (Auto) 0.2 (0-2) % Neut # (Auto) 3800 (9625-8994) /uL Lymph # (Auto) 2700 (5208-9885) /uL [place] # (Auto) 500 (0-900) /uL Eos # (Auto) 0 (0-450) /uL Baso # (Auto) 0 (0-100) /uL PT (10.1-12.7) SECONDS INR (0.9-1.3) APTT 78 H* D (26.4-36.2) SECONDS Sodium 140 (137-145) mmol/L Potassium 4.1 (3.4-5.1) mmol/L Chloride 110 H (98-107) mmol/L Carbon Dioxide 28 (22-32) mmol/L BUN 22 H (9-20) mg/dL Creatinine 0.93 (0.66-1.25) mg/dL Estimated GFR > 60.0 (>60) mL/min BUN/Creatinine Ratio 23.7 H (6-22) Glucose 91 (80-110) mg/dL Calcium 10.6 H (8.4-10.2) mg/dL Magnesium (1.6-2.3) mg/dL Total Bilirubin 1.2 (0.2-1.3) mg/dL AST 141 H (17-59) IU/L ALT 41 (<50) IU/L Alkaline Phosphatase 68 (38-126) U/L Total Creatine Kinase (55-170) U/L CK-MB (CK-2) (<2.37) ng/mL CK-MB (CK-2) Rel Index (1.5-5.0) % Troponin I 0.125 H* (0.01-0.034) ng/mL NT-Pro-B Natriuret Pep (<450) pg/mL Total Protein 6.3 (6.3-8.2) g/dL Albumin 3.6 (3.5-5.0) g/dL Globulin 2.7 (1.7-4.1) g/dL Albumin/Globulin Ratio 1.3 (1.0-2.8) Lipase (23-300) U/L Urine RBC (0-5/HPF) Urine WBC (0-5/HPF) Urine Bacteria (None) Ur Culture Indicated? SARS-CoV-2 (PCR) (Negative) 07/03/21 Range/Units 11:05 WBC (4.5-11.0) X10^3/uL RBC (4.5-5.9) X10^6/uL Hgb (13.5-17.5) g/dL Hct (41-53) % MCV (80-100) fL MCH (26-34) PG MCHC (30-36) % RDW (11.6-14.8) % Plt Count (150-400) X10^3/uL Neut % (Auto) (50-75) % Lymph % (Auto) (25-40) % [place] % (Auto) (3-14) % Eos % (Auto) (2-4) % Baso % (Auto) (0-2) % Neut # (Auto) (2060-1198) /uL Lymph # (Auto) (7500-8521) /uL [place] # (Auto) (0-900) /uL Eos # (Auto) (0-450) /uL Baso # (Auto) (0-100) /uL PT (10.1-12.7) SECONDS INR (0.9-1.3) APTT 62 H D (26.4-36.2) SECONDS Sodium (137-145) mmol/L Potassium (3.4-5.1) mmol/L Chloride (98-107) mmol/L Carbon Dioxide (22-32) mmol/L BUN (9-20) mg/dL Creatinine (0.66-1.25) mg/dL Estimated GFR (>60) mL/min BUN/Creatinine Ratio (6-22) Glucose (80-110) mg/dL Calcium (8.4-10.2) mg/dL Magnesium (1.6-2.3) mg/dL Total Bilirubin (0.2-1.3) mg/dL AST (17-59) IU/L ALT (<50) IU/L Alkaline Phosphatase (38-126) U/L Total Creatine Kinase (55-170) U/L CK-MB (CK-2) (<2.37) ng/mL CK-MB (CK-2) Rel Index (1.5-5.0) % Troponin I (0.01-0.034) ng/mL NT-Pro-B Natriuret Pep (<450) pg/mL Total Protein (6.3-8.2) g/dL Albumin (3.5-5.0) g/dL Globulin (1.7-4.1) g/dL Albumin/Globulin Ratio (1.0-2.8) Lipase (23-300) U/L Urine RBC (0-5/HPF) Urine WBC (0-5/HPF) Urine Bacteria (None) Ur Culture Indicated? SARS-CoV-2 (PCR) (Negative) Urine Dip Bedside Urine Glucose Negative Bedside Urine Bilirubin - Negative Bedside Urine Ketone - Negative Urine Specific Tripp 1.015 Bedside Urine Occult Blood +++ Bedside Urine pH 8.0 Bedside Urine Protein - Negative Bedside Urine Urobilinogen - Negative Bedside Urine Nitrite - Negative Bedside Urine Leukocytes - Negative Esterase Point of care testing: Urine Dip Bedside Urine Glucose Negative Bedside Urine Bilirubin - Negative Bedside Urine Ketone - Negative Urine Specific Tripp 1.015 Bedside Urine Occult Blood +++ Bedside Urine pH 8.0 Bedside Urine Protein - Negative Bedside Urine Urobilinogen - Negative Bedside Urine Nitrite - Negative Bedside Urine Leukocytes - Negative Esterase Imaging Data Chest x-ray: Radiologist's Impression: FINDINGS:? ? Surgical changes and devices:? None.? ? Lungs and pleura:? Minimal bibasilar atelectasis and or infiltrate accentuated by low lung volumes. ? Mediastinum:? Mediastinal contours appear normal.? Heart size is normal.? At herosclerotic vascular calcification noted in the aortic arch. ? Bones and chest wall:? No suspicious bony lesions.? Overlying soft tissues appear unremarkable.? ? IMPRESSION:? Minimal bibasilar atelectasis and infiltrate accentuated by low lung volumes ? ? ? Approved by: Memo Villagran M.D. on 07/02/2021 at 14:32? cardiac Echo: Radiologist's Impression: + :Name: BEBETO COYLE? ? ? Study Date: 07/03/2021 ? Height: 68 in? : :[facility] ? ? ReadingLocation: ? Weight: 200 lb : : ? Gender: Male ? BSA: 2.0 m2? ? : :: 1935? Age: 85 yrs? BP: 134/69 mmHg: :Reason For Study: NSTEMI ? : :Ordering Physician: Corry ? : :Lakisha? Performed By: Chaparro Mendiola? : :Referring: CORRY HANSON ? : + + Interpretation Summary Normal sinus rhythm. ? Normal LV size; mild concentric LVH; normal wall motion and LV systolic function. EF is 60-65%. Stage I diastolic dysfunction. ? Normal chamber sizes. ? Aortic valve is mildly calcified but opens well with mild associated aortic regurgitation. ? Compared to prior study dated 09/06/2016 no changes have occurred, other than slightly increased heart rate from 60 bpm to 75-80 bpm. ? Procedure: ? A two-dimensional transthoracic echocardiogram with color flow and Doppler was performed. Comparison is made with the echocardiogram of 09/06/2016. Images from the parasternal window were difficult to obtain and are suboptimal in quality. The subcostal views were not obtained due to no acoustic window. The patient was in normal sinus rhythm during the exam. Left Ventricle: ? The left ventricle is normal in size. There is mild concentric left ventricular hypertrophy. The ejection fraction is estimated to be 60-65%. Diastolic parameters suggest a relaxation abnormality of the left ventricle, consistent with probable normal filling pressures. Right Ventricle: ? The right ventricle is normal in size, thickness and function. The right ventricular systolic function is normal. Atria: ? Both atria are normal in size. There is no Doppler evidence for an interatrial shunt. Mitral Valve: ? The mitral valve is normal. There is no mitral regurgitation noted. Aortic Valve: ? The aortic valve opens well. The aortic valve is mildly calcified. There is mild aortic regurgitation. Tricuspid Valve: ? The tricuspid valve is normal. There is trace tricuspid regurgitation. Right ventricular systolic pressure is estimated to be 17 mmHg plus the clinically estimated CVP which cannot be estimated on this exam. Pulmonic Valve: ? The pulmonic valve is not well seen, but is grossly normal. There is a trace or physiologic amount of pulmonic regurgitation. Great Vessels: ? The aortic root is mildly dilated. The ascending aorta is mildly enlarged. The aortic arch is normal in size. The inferior vena cava was not visualized. Pericardium/ Pleura ? There is no pericardial effusion. There is an anterior echo-free space consistent with a fat pad. There is no pleural effusion. ? MMode/2D Measurements & Calculations LVIDd: 3.8 cm? LVOT diam: 2.3 cm LVIDs: 2.0 cm? asc Aorta Diam: 3.9 cm FS: 48.2 % ? Ao Arch Diam (Prox Trans): 2.3 cm IVSd: 1.3 cm LVPWd: 1.5 cm LV garcia. diameter/BSA (cm/m^2): 1.8 LV sys. diameter/BSA (cm/m^2): 0.95 ? LA A2 area: 17.2 cm2 ? RA long axis: 5.2 cm LA A4 area: 14.5 cm2 ? RA area: 10.4 cm2 LA length (vol): 5.4 cm? RA vol: 17.6 ml LA vol: 39.1 ml? RA : 8.6 ml/m2 LA vol index: 19.1 ml/m2 ? TAPSE: 1.8 cm ? Doppler Measurements & Calculations Ao V2 max: 144.5 cm/sec ? LVOT Max Todd: 108.8 cm/sec Ao V2 mean: 112.8 cm/sec? LV V1 max P.7 mmHg Ao max P.4 mmHg ? LV V1 VTI: 19.4 cm Ao mean P.4 mmHg? TRISH(I,D): 3.0 cm2 Ao V2 VTI: 25.4 cm? TRISH(V,D): 3.0 cm2 ? sev ratio: 0.76 ? TRISH indexed to BSA (cm^2/m^2): 1.5 ? MV E max todd: 54.9 cm/sec ? TR max todd: 207.4 cm/sec MV A max todd: 79.3 cm/sec ? TR max P.2 mmHg MV E/A: 0.69 Med Peak E' Todd: 5.7 cm/sec E/E' med: 9.6 Lat Peak E' Todd: 7.6 cm/sec E/E' lat: 7.2 E/e' average: 8.4 MV dec time: 0.24 sec ? SV(LVOT): 77.2 ml ? Electronically signed by: Ada Harding M.D. on Reading Physician:07/03/2021 12:38 PM ECG Data Interpretation: Sinus rhythm at a rate of 69 Bifascicular bundle branch block left axis deviation No acute ischemic changes MDM Narrative Medical decision making narrative: 85-year-old gentleman with increasing weakness that has a positive troponin 0.106 that in 2 hours is increased to 0.129 . He incidentally is COVID positive, vaccinated and boosted and currently asymptomatic with oxygen saturations at 98% on room air. Patient has no chest pain, palpitations dyspnea and has no prior coronary artery disease. Care is reviewed with Dr. Harding, machine maintenance technician on-call for both [place] and [facility]. She agrees with current medical management and transfer to [facility] when a bed is available. Will need an echocardiogram and may benefit from heart catheterization however this will not need to be done emergently this evening. Phone call to schedule well as wood crew supervisor to see if transfer is possible. Care is reviewed with patient and family and they understand. If transfer is not possible this evening you will be boarded in the emergency room overnight. 07/02/21 ([place])-received sign-out from Dr. Hanson. Awaiting placement. [facility] says that he has been placed on a wait list unable to do cardiac catheterization in till Sunday which is in 2 days. I got call to patient's room at 10:00 p.m. for increased confusion. Moving all around asking repeated questions. On heparin drip concern for possible intracranial hemorrhage. Fortunately CT is negative. Repeat troponin shows a mild rise from 0.12-0.14. He was given his nightly dose of his same medications. After some time he calmed and is now resting comfortably. 830am 07/03/21 Progress note S: 85-year-old gentleman held in the emergency department pending bed availability at [facility] with diagnosis of NSTEMI. Incidental diagnosis of COVID-19 asymptomatic with oxygenation is remaining in the upper 90s. Discussion yesterday with Dr. Harding, agreed with continued medical management and transfer to [facility] when bed was available. Patient has remained on heparin overnight he has had no chest pain, no dyspnea weakness is slightly better. He did have the brief episode of confusion last night and head CT was obtained that showed no acute findings. The episode resolved completely and he is at his baseline level of cognitive function this morning. O: 113/68, HR 75 sinus, RR 34, 92% RA Alert and appropriate this morning Chest is completely clear Cardiac exam reveals regular rate and rhythm no murmurs Abdomen is soft and nontender Neurologic: No focal deficits remains weak we have not had him try to stand or get out of bed Interventions: Troponin looks like it peaked last night at 0.144 and this morning is back down to .125 CT scan of the brain last night for his brief confused episode is unremarkable IMPRESSION:? 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 No sign of intracranial hemorrhage or other acute disease.? Source of altered mental status is not seen. Dictated by: Luis Walker M.D. on 07/02/2021 at 22:08? Remains on heparin drip Impression/plan: NSTEMI peak troponin last night. Will see if cardiac echo is available today. Will continue to work on bed availability with transfer to [facility] for inpatient cardiac consultation and consideration of heart catheterization prior to hospital discharge. If transfer is not going to be today will review with [facility] rdiology and consider admission to [facility] verses transfer to alternative facility such as [facility] or [facility]. Covid19 afebrile, no cough, minimally symptomatic. Saturations at rest and while sleeping are as low as 92% when he is up and deep breathing easily up to 98%. Corry Hanson MD 940am Care is reviewed with Dr. Harding, cardiology. In light of the fact that it looks like his troponin has peaked, he remains minimally symptomatic with weakness as his only issue and with no bed availability due to COVID pandemic and crisis conditions currently up and down [facility] will opt to maximize medical treatment with 48 hours of heparin and echocardiogram. May be able to be safely discharged home and follow-up as an outpatient. Will review with the hospitalist service 10am Hospitalist declines admit and requsts that we continue looking for bed availa bility at a facility with cardiology and label designer available. Echo ordered and expected to be completed by noon. 1140 Care has been reviewed with [facility] we are on the list for all of those with no beds available. [facility] was unlikely [facility] was unlikely. Care has been reviewed with [facility] and imaging will be pushed to them however capacity is far exceeded right now. 1pm Cardiac echo reviewed with Dr Harding. Reassuring study with ejection fraction at 60-65% and no obvious wall motion abnormalities. Recommendation is 48 hours of heparin as standard of care for non-STEMI management and discharge home with outpatient Cardiology follow-up for risk stratification. Heart catheterization would not be recommended with this inpatient stay. 1:30pm call back from Cardiology at the [facility]. As the echo has now returned with reassuring findings with medical management recommended he did not feel that a significantly higher level of care from that available [facility] would be required. 135 care is again reviewed with Dr Roberts, [facility] who agrees to admit the patient for the remainder of his 48 hours of heparin and further medical management of his COVID. At this time we have not had this gentleman o ut of bed to see how he is in terms of his overall weakness and that will need to be further assessed as an inpatient. At this time he is safe for transfer to the floor <Gaby Rebolledo DO - Last Filed: 07/04/21 00:18> Lab Data Labs: Lab Results 07/02/21 07/02/21 07/02/21 Range/Units 13:40 13:45 13:45 WBC 9.0 (4.5-11.0) X10^3/uL RBC 4.74 (4.5-5.9) X10^6/uL Hgb 14.1 (13.5-17.5) g/dL Hct 41.8 (41-53) % MCV 88.3 (80-100) fL MCH 29.7 (26-34) PG MCHC 33.7 (30-36) % RDW 15.2 H (11.6-14.8) % Plt Count 109 L (150-400) X10^3/uL Neut % (Auto) 60.8 (50-75) % Lymph % (Auto) 30.3 (25-40) % [place] % (Auto) 8.6 (3-14) % Eos % (Auto) 0.0 L (2-4) % Baso % (Auto) 0.3 (0-2) % Neut # (Auto) 5500 (5142-8775) /uL Lymph # (Auto) 2700 (3839-8437) /uL [place] # (Auto) 800 (0-900) /uL Eos # (Auto) 0 (0-450) /uL Baso # (Auto) 0 (0-100) /uL PT 13.1 H (10.1-12.7) SECONDS INR 1.2 (0.9-1.3) APTT 29 (26.4-36.2) SECONDS Sodium (137-145) mmol/L Potassium (3.4-5.1) mmol/L Chloride (98-107) mmol/L Carbon Dioxide (22-32) mmol/L BUN (9-20) mg/dL Creatinine (0.66-1.25) mg/dL Estimated GFR (>60) mL/min BUN/Creatinine Ratio (6-22) Glucose (80-110) mg/dL Calcium (8.4-10.2) mg/dL Magnesium (1.6-2.3) mg/dL Total Bilirubin (0.2-1.3) mg/dL AST (17-59) IU/L ALT (<50) IU/L Alkaline Phosphatase (38-126) U/L Total Creatine Kinase (55-170) U/L CK-MB (CK-2) (<2.37) ng/mL CK-MB (CK-2) Rel Index (1.5-5.0) % Troponin I (0.01-0.034) ng/mL NT-Pro-B Natriuret Pep (<450) pg/mL Total Protein (6.3-8.2) g/dL Albumin (3.5-5.0) g/dL Globulin (1.7-4.1) g/dL Albumin/Globulin Ratio (1.0-2.8) Lipase (23-300) U/L Urine RBC (0-5/HPF) Urine WBC (0-5/HPF) Urine Bacteria (None) Ur Culture Indicated? SARS-CoV-2 (PCR) Positive H (Negative) 07/02/21 07/02/21 07/02/21 Range/Units 13:45 15:05 16:10 WBC (4.5-11.0) X10^3/uL RBC (4.5-5.9) X10^6/uL Hgb (13.5-17.5) g/dL Hct (41-53) % MCV (80-100) fL MCH (26-34) PG MCHC (30-36) % RDW (11.6-14.8) % Plt Count (150-400) X10^3/uL Neut % (Auto) (50-75) % Lymph % (Auto) (25-40) % [place] % (Auto) (3-14) % Eos % (Auto) (2-4) % Baso % (Auto) (0-2) % Neut # (Auto) (3384-5594) /uL Lymph # (Auto) (3669-5356) /uL [place] # (Auto) (0-900) /uL Eos # (Auto) (0-450) /uL Baso # (Auto) (0-100) /uL PT (10.1-12.7) SECONDS INR (0.9-1.3) APTT (26.4-36.2) SECONDS Sodium 137 (137-145) mmol/L Potassium 3.8 (3.4-5.1) mmol/L Chloride 107 (98-107) mmol/L Carbon Dioxide 23 (22-32) mmol/L BUN 31 H (9-20) mg/dL Creatinine 1.27 H (0.66-1.25) mg/dL Estimated GFR 54.2 L (>60) mL/min BUN/Creatinine Ratio 24.4 H (6-22) Glucose 120 H (80-110) mg/dL Calcium 10.4 H (8.4-10.2) mg/dL Magnesium 2.1 (1.6-2.3) mg/dL Total Bilirubin 0.9 (0.2-1.3) mg/dL AST 77 H (17-59) IU/L ALT 30 (<50) IU/L Alkaline Phosphatase 69 (38-126) U/L Total Creatine Kinase 2126 H (55-170) U/L CK-MB (CK-2) 14.10 H (<2.37) ng/mL CK-MB (CK-2) Rel Index 0.7 L (1.5-5.0) % Troponin I 0.106 H 0.129 H* (0.01-0.034) ng/mL NT-Pro-B Natriuret Pep 646 H (<450) pg/mL Total Protein 6.6 (6.3-8.2) g/dL Albumin 3.9 (3.5-5.0) g/dL Globulin 2.7 (1.7-4.1) g/dL Albumin/Globulin Ratio 1.4 (1.0-2.8) Lipase 44 (23-300) U/L Urine RBC 0-1/hpf (0-5/HPF) Urine WBC 0-1/hpf (0-5/HPF) Urine Bacteria None seen (None) Ur Culture Indicated? Cult not indicated SARS-CoV-2 (PCR) (Negative) 07/02/21 07/02/21 07/02/21 Range/Units 16:10 22:21 22:21 WBC (4.5-11.0) X10^3/uL RBC (4.5-5.9) X10^6/uL Hgb (13.5-17.5) g/dL Hct (41-53) % MCV (80-100) fL MCH (26-34) PG MCHC (30-36) % RDW (11.6-14.8) % Plt Count (150-400) X10^3/uL Neut % (Auto) (50-75) % Lymph % (Auto) (25-40) % [place] % (Auto) (3-14) % Eos % (Auto) (2-4) % Baso % (Auto) (0-2) % Neut # (Auto) (2014-6128) /uL Lymph # (Auto) (2482-6155) /uL [place] # (Auto) (0-900) /uL Eos # (Auto) (0-450) /uL Baso # (Auto) (0-100) /uL PT (10.1-12.7) SECONDS INR (0.9-1.3) APTT 146 H* D 138 H* (26.4-36.2) SECONDS Sodium (137-145) mmol/L Potassium (3.4-5.1) mmol/L Chloride (98-107) mmol/L Carbon Dioxide (22-32) mmol/L BUN (9-20) mg/dL Creatinine (0.66-1.25) mg/dL Estimated GFR (>60) mL/min BUN/Creatinine Ratio (6-22) Glucose (80-110) mg/dL Calcium (8.4-10.2) mg/dL Magnesium (1.6-2.3) mg/dL Total Bilirubin (0.2-1.3) mg/dL AST (17-59) IU/L ALT (<50) IU/L Alkaline Phosphatase (38-126) U/L Total Creatine Kinase (55-170) U/L CK-MB (CK-2) (<2.37) ng/mL CK-MB (CK-2) Rel Index (1.5-5.0) % Troponin I 0.144 H* (0.01-0.034) ng/mL NT-Pro-B Natriuret Pep (<450) pg/mL Total Protein (6.3-8.2) g/dL Albumin (3.5-5.0) g/dL Globulin (1.7-4.1) g/dL Albumin/Globulin Ratio (1.0-2.8) Lipase (23-300) U/L Urine RBC (0-5/HPF) Urine WBC (0-5/HPF) Urine Bacteria (None) Ur Culture Indicated? SARS-CoV-2 (PCR) (Negative) 07/03/21 07/03/21 07/03/21 Range/Units 04:45 04:45 04:45 WBC 7.0 (4.5-11.0) X10^3/uL RBC 4.86 (4.5-5.9) X10^6/uL Hgb 14.3 (13.5-17.5) g/dL Hct 42.7 (41-53) % MCV 87.9 (80-100) fL MCH 29.4 (26-34) PG MCHC 33.4 (30-36) % RDW 15.0 H (11.6-14.8) % Plt Count 106 L (150-400) X10^3/uL Neut % (Auto) 54.8 (50-75) % Lymph % (Auto) 38.0 (25-40) % [place] % (Auto) 6.6 (3-14) % Eos % (Auto) 0.4 L (2-4) % Baso % (Auto) 0.2 (0-2) % Neut # (Auto) 3800 (8792-7486) /uL Lymph # (Auto) 2700 (1564-6657) /uL [place] # (Auto) 500 (0-900) /uL Eos # (Auto) 0 (0-450) /uL Baso # (Auto) 0 (0-100) /uL PT (10.1-12.7) SECONDS INR (0.9-1.3) APTT 78 H* D (26.4-36.2) SECONDS Sodium 140 (137-145) mmol/L Potassium 4.1 (3.4-5.1) mmol/L Chloride 110 H (98-107) mmol/L Carbon Dioxide 28 (22-32) mmol/L BUN 22 H (9-20) mg/dL Creatinine 0.93 (0.66-1.25) mg/dL Estimated GFR > 60.0 (>60) mL/min BUN/Creatinine Ratio 23.7 H (6-22) Glucose 91 (80-110) mg/dL Calcium 10.6 H (8.4-10.2) mg/dL Magnesium (1.6-2.3) mg/dL Total Bilirubin 1.2 (0.2-1.3) mg/dL AST 141 H (17-59) IU/L ALT 41 (<50) IU/L Alkaline Phosphatase 68 (38-126) U/L Total Creatine Kinase (55-170) U/L CK-MB (CK-2) (<2.37) ng/mL CK-MB (CK-2) Rel Index (1.5-5.0) % Troponin I 0.125 H* (0.01-0.034) ng/mL NT-Pro-B Natriuret Pep (<450) pg/mL Total Protein 6.3 (6.3-8.2) g/dL Albumin 3.6 (3.5-5.0) g/dL Globulin 2.7 (1.7-4.1) g/dL Albumin/Globulin Ratio 1.3 (1.0-2.8) Lipase (23-300) U/L Urine RBC (0-5/HPF) Urine WBC (0-5/HPF) Urine Bacteria (None) Ur Culture Indicated? SARS-CoV-2 (PCR) (Negative) 07/03/21 Range/Units 11:05 WBC (4.5-11.0) X10^3/uL RBC (4.5-5.9) X10^6/uL Hgb (13.5-17.5) g/dL Hct (41-53) % MCV (80-100) fL MCH (26-34) PG MCHC (30-36) % RDW (11.6-14.8) % Plt Count (150-400) X10^3/uL Neut % (Auto) (50-75) % Lymph % (Auto) (25-40) % [place] % (Auto) (3-14) % Eos % (Auto) (2-4) % Baso % (Auto) (0-2) % Neut # (Auto) (3127-2003) /uL Lymph # (Auto) (0811-2146) /uL [place] # (Auto) (0-900) /uL Eos # (Auto) (0-450) /uL Baso # (Auto) (0-100) /uL PT (10.1-12.7) SECONDS INR (0.9-1.3) APTT 62 H D (26.4-36.2) SECONDS Sodium (137-145) mmol/L Potassium (3.4-5.1) mmol/L Chloride (98-107) mmol/L Carbon Dioxide (22-32) mmol/L BUN (9-20) mg/dL Creatinine (0.66-1.25) mg/dL Estimated GFR (>60) mL/min BUN/Creatinine Ratio (6-22) Glucose (80-110) mg/dL Calcium (8.4-10.2) mg/dL Magnesium (1.6-2.3) mg/dL Total Bilirubin (0.2-1.3) mg/dL AST (17-59) IU/L ALT (<50) IU/L Alkaline Phosphatase (38-126) U/L Total Creatine Kinase (55-170) U/L CK-MB (CK-2) (<2.37) ng/mL CK-MB (CK-2) Rel Index (1.5-5.0) % Troponin I (0.01-0.034) ng/mL NT-Pro-B Natriuret Pep (<450) pg/mL Total Protein (6.3-8.2) g/dL Albumin (3.5-5.0) g/dL Globulin (1.7-4.1) g/dL Albumin/Globulin Ratio (1.0-2.8) Lipase (23-300) U/L Urine RBC (0-5/HPF) Urine WBC (0-5/HPF) Urine Bacteria (None) Ur Culture Indicated? SARS-CoV-2 (PCR) (Negative) Urine Dip Bedside Urine Glucose Negative Bedside Urine Bilirubin - Negative Bedside Urine Ketone - Negative Urine Specific Tripp 1.015 Bedside Urine Occult Blood +++ Bedside Urine pH 8.0 Bedside Urine Protein - Negative Bedside Urine Urobilinogen - Negative Bedside Urine Nitrite - Negative Bedside Urine Leukocytes - Negative Esterase Point of care testing: Urine Dip Bedside Urine Glucose Negative Bedside Urine Bilirubin - Negative Bedside Urine Ketone - Negative Urine Specific Tripp 1.015 Bedside Urine Occult Blood +++ Bedside Urine pH 8.0 Bedside Urine Protein - Negative Bedside Urine Urobilinogen - Negative Bedside Urine Nitrite - Negative Bedside Urine Leukocytes - Negative Esterase Imaging Data CT scan - head: Radiologist's Impression: PROCEDURE:? CT HEAD/BRAIN WO CON ? INDICATIONS:? confusion on heparin ? TECHNIQUE:? Noncontrast 4.5 mm thick angled axial sections acquired from the foramen magnum to the vertex, with coronal and sagittal reformats.? For radiation dose reduction, the following was used:? automated exposure control, adjustment of mA and/or kV according to patient size.? ? COMPARISON:? [facility], CT, CT HEAD/BRAIN WO CON, 03/22/2020, 1:36. ? FINDINGS:? Image quality:? Excellent.? ? CSF spaces:? Basal cisterns are patent.? No extra-axial fluid collections.? The ventricles are symmetric in size and shape.? ? Brain:? No intracranial bleeds or masses.? There is cerebral volume loss for age, with resultant ventricular and sulcal prominence.? There are periventricular and deep white matter chronic small vessel ischemic changes.? A small rounded focus of encephalomalacia a adjacent to the frontal horn of the left lateral ventricle is stable over time, likely reflecting old ischemic injury at that site There is intracranial internal carotid artery atherosclerosis.? ? Skull and face:? Calvarium and visualized facial bones appear intact, without suspicious lesions.? ? Sinuses:? Visualized sinuses and mastoids are clear.? ? IMPRESSION:? 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 No sign of intracranial hemorrhage or other acute disease.? S ource of altered mental status is not seen. ? ? Dictated by: Luis Walker M.D. on 07/02/2021 at 22:08 ? ? MDM Narrative Medical decision making narrative: 85-year-old gentleman with increasing weakness that has a positive troponin 0.106 that in 2 hours is increased to 0.129 . He incidentally is COVID positive, vaccinated and boosted and currently asymptomatic with oxygen saturations at 98% on room air. Patient has no chest pain, palpitations dyspnea and has no prior coronary artery disease. Care is reviewed with Dr. Harding, machine maintenance technician on-call for both [facility] and [facility]. She agrees with current medical management and transfer to [facility] when a bed is available. Will need an echocardiogram and may benefit from heart catheterization however this will not need to be done emergently this evening. Phone call to schedule well as wood crew supervisor to see if transfer is possible. Care is reviewed with patient and family and they understand. If transfer is not possible this evening you will be boarded in the emergency room overnight. 07/02/21 ([place])-received sign-out from Dr. Hanson. Awaiting placement. [facility] says that he has been placed on a wait list unable to do cardiac catheterization in till Sunday which is in 2 days. I got call to patient's room at 10:00 p.m. for increased confusion. Moving all around asking repeated questions. On heparin drip concern for possible intracranial hemorrhage. Fortunately CT is negative. Repeat troponin shows a mild rise from 0.12-0.14. He was given his nightly dose of his same medications. After some time he calmed and is now resting comfortably. Discharge Plan Departure Patient Disposition: Admitted As Inpatient Clinical Impression: Non-ST elevation IL (NSTEMI), COVID Admit Date/Time: 07/03/21 13:50 Admit Provider: Richi Roberts
[2021-07-02] MEDS: HEPARIN 5,000 UNIT/ML VIAL 5000 UNIT IV (15:56)
[2021-07-02] MEDS: HEPARIN DRIP 25,000 UNIT/500 ML IV.SOLN 20 UNIT IV (15:57)
[2021-07-02] MEDS: SODIUM CHLORIDE 0.9% 500 ML 1000 ML IV (15:58)
[2021-07-02 16:03] LABS: Bacteria Urine None Seen; Culture Indicated Urine Cult Not Indicated; RBC Urine 0-1/HPF (0-5/HPF); WBC Urine 0-1/HPF (0-5/HPF)
[2021-07-02 17:05] LABS: Troponin I 0.129 ng/mL (0.01-0.034)
[2021-07-02 17:43] LABS: PTT Partial Thromboplastin Tim 146 SECONDS (26.4-36.2)
[2021-07-02] MEDS: ASPIRIN 81 MG CHEW TAB 324 MG PO (17:51)
[2021-07-02] MEDS: MIRTAZAPINE 15 MG TABLET 7.5 MG PO (20:43)
[2021-07-02] MEDS: DONEPEZIL 5 MG TABLET PO (20:43)
--- NOTE | 2021-07-02 21:40 | DI.RAD.S_ITS ---
PROCEDURE: XR CHEST 1V INDICATIONS: sob with MA TECHNIQUE: One view of the chest was acquired. COMPARISON: [facility], CR, XR CHEST 1V, 07/02/2021, 14:12. FINDINGS: Surgical changes and devices: None. Lungs and pleura: Lungs are mildly abnormal, with reduced inspiratory volume and what may be mild or early pneumonia at the lateral right lung base. No pleural effusions or pneumothorax. Mediastinum: Mediastinal contours appear normal. Heart size is normal. Bones and chest wall: No suspicious bony lesions. Overlying soft tissues appear unremarkable. IMPRESSION: The inspiratory volume is reduced and there may be mild or early pneumonia at the lateral right lung base but the reduced inspiration may simply reflect development of atelectasis in that area. A definite pneumonia is not found. Dictated by: Luis Walker M.D. on 07/02/2021 at 22:07 Approved by: Luis Walker M.D. on 07/02/2021 at 22:08
--- NOTE | 2021-07-02 21:40 | DI.CT.S_ITS ---
PROCEDURE: CT HEAD/BRAIN WO CON INDICATIONS: confusion on heparin TECHNIQUE: Noncontrast 4.5 mm thick angled axial sections acquired from the foramen magnum to the vertex, with coronal and sagittal reformats. For radiation dose reduction, the following was used: automated exposure control, adjustment of mA and/or kV according to patient size. COMPARISON: [facility], CT, CT HEAD/BRAIN WO CON, 03/22/2020, 1:36. FINDINGS: Image quality: Excellent. CSF spaces: Basal cisterns are patent. No extra-axial fluid collections. The ventricles are symmetric in size and shape. Brain: No intracranial bleeds or masses. There is cerebral volume loss for age, with resultant ventricular and sulcal prominence. There are periventricular and deep white matter chronic small vessel ischemic changes. A small rounded focus of encephalomalacia a adjacent to the frontal horn of the left lateral ventricle is stable over time, likely reflecting old ischemic injury at that site There is intracranial internal carotid artery atherosclerosis. Skull and face: Calvarium and visualized facial bones appear intact, without suspicious lesions. Sinuses: Visualized sinuses and mastoids are clear. 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 No sign of intracranial hemorrhage or other acute disease. Source of altered mental status is not seen. Dictated by: Luis Walker M.D. on 07/02/2021 at 22:08 Approved by: Luis Walker M.D. on 07/02/2021 at 22:10
--- NOTE | 2021-07-02 21:42 | PC.NURSE ---
Daughter alerted staff that patient appeared to be more confused, pulling at things, attempting to exit bed. This RN had SPRING FITTER get Dr Rebolledo to bedside for assessment. Bladder scan was performed by [employer] with minimal volume present. New orders placed for CT of the head, labs, and EKG.
[2021-07-02] MEDS: ATORVASTATIN 20 MG TABLET 80 MG PO (22:34)
[2021-07-02 22:50] LABS: PTT Partial Thromboplastin Tim 138 SECONDS (26.4-36.2)
[2021-07-02 23:01] LABS: Troponin I 0.144 ng/mL (0.01-0.034)
[2021-07-03] VITALS (87 sets, daily range): BP systolic 97–153; BP diastolic 54–84; PULSE 57–99; RESP 16–52; TEMP 36.7–38.1; O2SAT 91–95; BMI 29.6
[2021-07-03 05:14] LABS: PTT Partial Thromboplastin Tim 78 SECONDS (26.4-36.2)
[2021-07-03 05:16] LABS: Alanine Aminotransferase 41 IU/L (<50); Albumin 3.6 g/dL (3.5-5.0); Albumin Globulin Ratio 1.3 (1.0-2.8); Alkaline Phosphatase 68 U/L (38-126); Aspartate Aminotransferase 141 IU/L (17-59); BUN Creatinine Ratio 23.7 (6-22); Bilirubin Total 1.2 mg/dL (0.2-1.3); Blood Urea Nitrogen 22 mg/dL (9-20); Calcium 10.6 mg/dL (8.4-10.2); Carbon Dioxide 28 mmol/L (22-32); Chloride 110 mmol/L (98-107); Estimated Glomerular Filt Rate > 60.0 mL/min (>60); Globulin 2.7 g/dL (1.7-4.1); Glucose 91 mg/dL (80-110); HEMOLYSIS < 15 (0-50); Potassium 4.1 mmol/L (3.4-5.1); Sodium 140 mmol/L (137-145); Total Protein 6.3 g/dL (6.3-8.2)
[2021-07-03 05:29] LABS: Troponin I 0.125 ng/mL (0.01-0.034)
[2021-07-03 05:40] LABS: Add Manual Diff / Slide Review NO; Basophils Absolute Auto 0 /uL (0-100); Basophils Percent Auto 0.2 % (0-2); Eosinophils Absolute Auto 0 /uL (0-450); Eosinophils Percent Auto 0.4 % (2-4); Hematocrit 42.7 % (41-53); Hemoglobin 14.3 g/dL (13.5-17.5); Lymphocytes Absolute Auto 2700 /uL (1100-4500); Mean Corpuscular HGB Conc 33.4 % (30-36); Mean Corpuscular Hemoglobin 29.4 PG (26-34); Mean Corpuscular Volume 87.9 fL (80-100); Monocytes Absolute Auto 500 /uL (0-900); Monocytes Percent Auto 6.6 % (3-14); Neutrophils Absolute Auto 3800 /uL (1500-7000); Neutrophils Percent Auto 54.8 % (50-75); Platelet Count 106 X10^3/uL (150-400); Red Blood Cell Count 4.86 X10^6/uL (4.5-5.9)
--- NOTE | 2021-07-03 07:04 | PC.NURSE ---
Pt slept for most of the shift, daughter at the bedside. Pt able to void with assistance. Skin p/w/d, in no apparent distress.
--- NOTE | 2021-07-03 09:08 | DI.ECHO.S_ITS ---
[facility] +---------+ : : [address] : : [address] : : : : [id number] : : : : Phone: [phone] Echocardiogram Report + + :Name: BEBETO COYLE Study Date: 07/03/2021 Height: 68 in : :[facility] [facility] [employer] [facility] ReadingLocation: Weight: 200 lb : : Gender: Male BSA: 2.0 m2 : :: 1935 Age: 85 yrs BP: 134/69 mmHg: :Reason For Study: NSTEMI : :Ordering Physician: Corry : :Lakisha Performed By: Chaparro Mendiola : :Referring: CORRY HANSON L : + + Interpretation Summary Normal sinus rhythm. Normal LV size; mild concentric LVH; normal wall motion and LV systolic function. EF is 60-65%. Stage I diastolic dysfunction. Normal chamber sizes. Aortic valve is mildly calcified but opens well with mild associated aortic regurgitation. Compared to prior study dated 09/06/2016 no changes have occurred, other than slightly increased heart rate from 60 bpm to 75-80 bpm. Procedure: A two-dimensional transthoracic echocardiogram with color flow and Doppler was performed. Comparison is made with the echocardiogram of 09/06/2016. Images from the parasternal window were difficult to obtain and are suboptimal in quality. The subcostal views were not obtained due to no acoustic window. The patient was in normal sinus rhythm during the exam. Left Ventricle: The left ventricle is normal in size. There is mild concentric left ventricular hypertrophy. The ejection fraction is estimated to be 60-65%. Diastolic parameters suggest a relaxation abnormality of the left ventricle, consistent with probable normal filling pressures. Right Ventricle: The right ventricle is normal in size, thickness and function. The right ventricular systolic function is normal. Atria: Both atria are normal in size. There is no Doppler evidence for an interatrial shunt. Mitral Valve: The mitral valve is normal. There is no mitral regurgitation noted. Aortic Valve: The aortic valve opens well. The aortic valve is mildly calcified. There is mild aortic regurgitation. Tricuspid Valve: The tricuspid valve is normal. There is trace tricuspid regurgitation. Right ventricular systolic pressure is estimated to be 17 mmHg plus the clinically estimated CVP which cannot be estimated on this exam. Pulmonic Valve: The pulmonic valve is not well seen, but is grossly normal. There is a trace or physiologic amount of pulmonic regurgitation. Great Vessels: The aortic root is mildly dilated. The ascending aorta is mildly enlarged. The aortic arch is normal in size. The inferior vena cava was not visualized. Pericardium/ Pleura There is no pericardial effusion. There is an anterior echo-free space consistent with a fat pad. There is no pleural effusion. MMode/2D Measurements & Calculations LVIDd: 3.8 cm LVOT diam: 2.3 cm LVIDs: 2.0 cm asc Aorta Diam: 3.9 cm FS: 48.2 % Ao Arch Diam (Prox Trans): 2.3 cm IVSd: 1.3 cm LVPWd: 1.5 cm LV garcia. diameter/BSA (cm/m^2): 1.8 LV sys. diameter/BSA (cm/m^2): 0.95 LA A2 area: 17.2 cm2 RA long axis: 5.2 cm LA A4 area: 14.5 cm2 RA area: 10.4 cm2 LA length (vol): 5.4 cm RA vol: 17.6 ml LA vol: 39.1 ml RA : 8.6 ml/m2 LA vol index: 19.1 ml/m2 TAPSE: 1.8 cm Doppler Measurements & Calculations Ao V2 max: 144.5 cm/sec LVOT Max Candelario: 108.8 cm/sec Ao V2 mean: 112.8 cm/sec LV V1 max P.7 mmHg Ao max P.4 mmHg LV V1 VTI: 19.4 cm Ao mean P.4 mmHg TRISH(I,D): 3.0 cm2 Ao V2 VTI: 25.4 cm TRISH(V,D): 3.0 cm2 sev ratio: 0.76 TRISH indexed to BSA (cm^2/m^2): 1.5 MV E max candelario: 54.9 cm/sec TR max candelario: 207.4 cm/sec MV A max candelario: 79.3 cm/sec TR max P.2 mmHg MV E/A: 0.69 Med Peak E' Candelario: 5.7 cm/sec E/E' med: 9.6 Lat Peak E' Candelario: 7.6 cm/sec E/E' lat: 7.2 E/e' average: 8.4 MV dec time: 0.24 sec SV(LVOT): 77.2 ml Electronically signed by: Ada Harding M.D. on Reading Physician:07/03/2021 12:38 PM
[2021-07-03] MEDS: ESCITALOPRAM 10 MG TABLET PO (10:20)
[2021-07-03] MEDS: ASPIRIN EC 81 MG TABLET PO (10:20)
[2021-07-03 11:25] LABS: PTT Partial Thromboplastin Tim 62 SECONDS (26.4-36.2)
--- NOTE | 2021-07-03 12:07 | PC.NURSE ---
Addendum entered by Olimpia Sepulveda R.N. 07/03/21 13:18: Correction, next PTT to be drawn 6 hours after previous PTT per protocol. Lab notified. Original Note: PTT 62, in Target Range, per protocol no change in rate, next PTT to be drawn next AM. Verified with Swetha WOODARD.
--- NOTE | 2021-07-03 13:48 | PM.HP.1 ---
History of Present Illness History of Present Illness Chief complaint: DEHYDRATED,FALL,COUGH Narrative: patient is an 85-year-old male with dementia, prostate cancer hyperlipidemia presents on admission NSTEMI. To admission he was said to have been weakened slumping over. He had no complaints of cough shortness of breath.. Chest x-ray revealed questionable early pneumonia but officially read by radiologist as no definite pneumonia. His CBC was an unremarkable as his WBCs have been well within normal limits on 07/02 and . is AST has risen from 77-141 today. His total CK on 07/02 was 2126 with a CK a -MB of 14.10. His original troponin was 0.1 0 6 which peaked at 0.144. This a.m. it was 0.125. his BMP on 07/02 was 646 called destination specialist and destination specialist recommended placing the patient on IV heparin infusion times 48 hours and regular goal-directed treatment. To help with risk stratification echocardiogram was ordered results have returned today. echo revealed normal LV size, mild concentric LVH, normal wall motion LV systolic function with EF of 60-65%, stage I diastolic dysfunction. Upon follow-up with the destination specialist today by the ED physician recommendations were the same to continue medical management with IV heparin infusion for 48 hours, aspirin 81 mg daily High-dose statin.. He should have outpatient follow-up with Cardiology in [facility] his clinical course dictates otherwise. Plant Sprayer recommended patient be hospitalized to the hospitalist service and therefore the hospitalists is being called for admission. Patient History Medical History (Updated 07/02/21 @ 17:37 by Corry Banuelos MD) COVID-19 Hyperlipidemia No significant medical problems Prostate cancer Surgical History (Updated 07/02/21 @ 15:50 by Corry Banuelos MD) H/O hemorrhoidectomy History of herniorrhaphy Hx of cholecystectomy Family & Social History Safety & Behavioral: Feels Safe in Current Yes Environment Been Physically Hurt or No Threatened By a Person Tobacco & Substance use: Smoking Status Never smoker alcohol intake frequency 0-2 drinks per day Substance Use Type does not use Meds Home Medications and Allergies Home Medications Medication Instructions Recorded Confirmed Type aspirin 81 mg tablet,delayed 81 mg PO DAILY #0 08/26/17 07/02/21 History release donepezil 5 mg tablet 5 mg PO BEDTIME 07/02/21 07/02/21 History escitalopram oxalate 10 mg tablet 10 mg PO DAILY 07/02/21 07/02/21 History mirtazapine 15 mg tablet 7.5 mg PO BEDTIME 07/02/21 07/02/21 History rosuvastatin 20 mg tablet 20 mg PO BEDTIME 07/02/21 07/02/21 History Allergies Allergy/AdvReac Type Severity Reaction Status Date / Time ranitidine [RANITIDINE] Allergy Severe reaction Verified 07/02/21 13:55 not known. reported from Primary MD Review of Systems Review of Systems Narrative: 14 point review of systems is unremarkable except for that HPI Exam Vital Signs (past 8 hours): - 07/03/21 06:00 07/03/21 06:15 07/03/21 06:30 Pulse Rate 75 72 74 Respiratory Rate 17 19 18 Blood Pressure 118/70 123/68 127/74 Pulse Oximetry 93 93 92 07/03/21 06:45 07/03/21 07:00 07/03/21 07:15 Pulse Rate 74 77 70 Respiratory Rate 17 29 H 27 H Blood Pressure 107/56 L 126/73 126/72 Pulse Oximetry 93 92 93 07/03/21 07:30 07/03/21 07:45 07/03/21 08:00 Pulse Rate 76 72 70 Respiratory Rate 23 31 H 29 H Blood Pressure 121/68 116/63 131/76 Pulse Oximetry 94 92 92 07/03/21 08:15 07/03/21 08:30 07/03/21 08:45 Pulse Rate 75 80 80 Respiratory Rate 34 H 32 H 34 H Blood Pressure 113/68 118/70 127/71 Pulse Oximetry 92 91 92 07/03/21 09:00 07/03/21 09:15 07/03/21 09:16 Pulse Rate 79 89 87 Respiratory Rate 32 H 31 H 28 H Blood Pressure 125/63 126/69 Pulse Oximetry 92 07/03/21 09:30 07/03/21 09:45 07/03/21 10:00 Pulse Rate 86 75 73 Respiratory Rate 32 H 32 H 28 H Blood Pressure 114/66 115/62 125/69 Pulse Oximetry 93 91 92 07/03/21 10:15 07/03/21 10:30 07/03/21 10:45 Pulse Rate 77 78 69 Respiratory Rate 23 31 H 34 H Blood Pressure 125/69 134/69 117/64 Pulse Oximetry 93 93 92 07/03/21 11:00 07/03/21 11:15 07/03/21 11:30 Pulse Rate 71 71 75 Respiratory Rate 32 H 30 H 29 H Blood Pressure 125/67 112/60 Pulse Oximetry 94 93 93 07/03/21 11:31 07/03/21 11:45 07/03/21 12:00 Pulse Rate 77 72 75 Respiratory Rate 31 H 28 H 32 H Blood Pressure 113/55 L 129/71 121/68 Pulse Oximetry 93 93 94 07/03/21 12:15 07/03/21 12:30 07/03/21 12:45 Pulse Rate 79 80 79 Respiratory Rate 31 H 32 H 32 H Blood Pressure 136/67 124/66 Pulse Oximetry 92 93 92 07/03/21 12:46 07/03/21 13:00 07/03/21 13:15 Pulse Rate 79 70 74 Respiratory Rate 32 H 29 H 29 H Blood Pressure 99/58 L 117/59 L 124/69 Pulse Oximetry 91 91 92 Oxygen Delivery Method Room Air Narrative Exam Narrative: CONSTITUTIONAL: 85-year-old male in no acute distress HEENT: N/C A/T EOMI PERRL sclera clear. Fundi not visualized. nares patent Oropharynx clear NECK: Supple without thyromegaly, bruits or jugular vpenous dpistention without thyromegaly THORAX: good symmetrical expansion RESPIRATORY: clear on anterior auscultation CARDIOVASCULAR: RR, S1-S2 normal. No lifts heaves rubs murmurs gallops present GI: benign bowel sounds present : no Lerma catheter MUSCULOSKELETAL: FROM no clubbing edema or cyanosis SKIN: no acute skin rashes NEUROLOGIC: decrease hearing and hears best on the left PSYCH: mood affect normal. Awake alert oriented x3 Objective Labs Result Diagrams: 07/03/21 15:30 07/03/21 04:45 Labs: Laboratory Results - last 24 hr 07/02/21 07/02/21 07/02/21 13:40 13:45 13:45 WBC 9.0 RBC 4.74 Hgb 14.1 Hct 41.8 MCV 88.3 MCH 29.7 MCHC 33.7 RDW 15.2 H Plt Count 109 L Neut % (Auto) 60.8 Lymph % (Auto) 30.3 [place] % (Auto) 8.6 Eos % (Auto) 0.0 L Baso % (Auto) 0.3 Neut # (Auto) 5500 Lymph # (Auto) 2700 [place] # (Auto) 800 Eos # (Auto) 0 Baso # (Auto) 0 PT 13.1 H INR 1.2 APTT 29 Sodium Potassium Chloride Carbon Dioxide BUN Creatinine Estimated GFR BUN/Creatinine Ratio Glucose Calcium Magnesium Total Bilirubin AST ALT Alkaline Phosphatase Total Creatine Kinase CK-MB (CK-2) CK-MB (CK-2) Rel Index Troponin I NT-Pro-B Natriuret Pep Total Protein Albumin Globulin Albumin/Globulin Ratio Lipase Urine RBC Urine WBC Urine Bacteria Ur Culture Indicated? SARS-CoV-2 (PCR) Positive H 07/02/21 07/02/21 07/02/21 13:45 15:05 16:10 WBC RBC Hgb Hct MCV MCH MCHC RDW Plt Count Neut % (Auto) Lymph % (Auto) [place] % (Auto) Eos % (Auto) Baso % (Auto) Neut # (Auto) Lymph # (Auto) [place] # (Auto) Eos # (Auto) Baso # (Auto) PT INR APTT Sodium 137 Potassium 3.8 Chloride 107 Carbon Dioxide 23 BUN 31 H Creatinine 1.27 H Estimated GFR 54.2 L BUN/Creatinine Ratio 24.4 H Glucose 120 H Calcium 10.4 H Magnesium 2.1 Total Bilirubin 0.9 AST 77 H ALT 30 Alkaline Phosphatase 69 Total Creatine Kinase 2126 H CK-MB (CK-2) 14.10 H CK-MB (CK-2) Rel Index 0.7 L Troponin I 0.106 H 0.129 H* NT-Pro-B Natriuret Pep 646 H Total Protein 6.6 Albumin 3.9 Globulin 2.7 Albumin/Globulin Ratio 1.4 Lipase 44 Urine RBC 0-1/hpf Urine WBC 0-1/hpf Urine Bacteria None seen Ur Culture Indicated? Cult not indicated SARS-CoV-2 (PCR) 07/02/21 07/02/21 07/02/21 16:10 22:21 22:21 WBC RBC Hgb Hct MCV MCH MCHC RDW Plt Count Neut % (Auto) Lymph % (Auto) [place] % (Auto) Eos % (Auto) Baso % (Auto) Neut # (Auto) Lymph # (Auto) [place] # (Auto) Eos # (Auto) Baso # (Auto) PT INR APTT 146 H* D 138 H* Sodium Potassium Chloride Carbon Dioxide BUN Creatinine Estimated GFR BUN/Creatinine Ratio Glucose Calcium Magnesium Total Bilirubin AST ALT Alkaline Phosphatase Total Creatine Kinase CK-MB (CK-2) CK-MB (CK-2) Rel Index Troponin I 0.144 H* NT-Pro-B Natriuret Pep Total Protein Albumin Globulin Albumin/Globulin Ratio Lipase Urine RBC Urine WBC Urine Bacteria Ur Culture Indicated? SARS-CoV-2 (PCR) 07/03/21 07/03/21 07/03/21 04:45 04:45 04:45 WBC 7.0 RBC 4.86 Hgb 14.3 Hct 42.7 MCV 87.9 MCH 29.4 MCHC 33.4 RDW 15.0 H Plt Count 106 L Neut % (Auto) 54.8 Lymph % (Auto) 38.0 [place] % (Auto) 6.6 Eos % (Auto) 0.4 L Baso % (Auto) 0.2 Neut # (Auto) 3800 Lymph # (Auto) 2700 [place] # (Auto) 500 Eos # (Auto) 0 Baso # (Auto) 0 PT INR APTT 78 H* D Sodium 140 Potassium 4.1 Chloride 110 H Carbon Dioxide 28 BUN 22 H Creatinine 0.93 Estimated GFR > 60.0 BUN/Creatinine Ratio 23.7 H Glucose 91 Calcium 10.6 H Magnesium Total Bilirubin 1.2 AST 141 H ALT 41 Alkaline Phosphatase 68 Total Creatine Kinase CK-MB (CK-2) CK-MB (CK-2) Rel Index Troponin I 0.125 H* NT-Pro-B Natriuret Pep Total Protein 6.3 Albumin 3.6 Globulin 2.7 Albumin/Globulin Ratio 1.3 Lipase Urine RBC Urine WBC Urine Bacteria Ur Culture Indicated? SARS-CoV-2 (PCR) 07/03/21 11:05 WBC RBC Hgb Hct MCV MCH MCHC RDW Plt Count Neut % (Auto) Lymph % (Auto) [place] % (Auto) Eos % (Auto) Baso % (Auto) Neut # (Auto) Lymph # (Auto) [place] # (Auto) Eos # (Auto) Baso # (Auto) PT INR APTT 62 H D Sodium Potassium Chloride Carbon Dioxide BUN Creatinine Estimated GFR BUN/Creatinine Ratio Glucose Calcium Magnesium Total Bilirubin AST ALT Alkaline Phosphatase Total Creatine Kinase CK-MB (CK-2) CK-MB (CK-2) Rel Index Troponin I NT-Pro-B Natriuret Pep Total Protein Albumin Globulin Albumin/Globulin Ratio Lipase Urine RBC Urine WBC Urine Bacteria Ur Culture Indicated? SARS-CoV-2 (PCR) Assessment & Plan Assessment & Plan narrative: Patient is an 85-year-old male with dementia, prostate cancer, hyperlipidemia presents with weakness and found to be COVID-19 positive and NSTEMI NSTEMI - continue with IV heparin infusion times 48 hours as per cardiology recommendations - med management with aspirin, beta-kristofer - holding on statin as a CK is significantly elevated. This could be cardiac in origin but will still hold his statin until his CK significantly improves COVID-19 POSITIVE 07/02/2021 patient is satting greater than 90% on room air no medical intervention required; i.e. no dexamethasone or remdesivir indicated Thrombocytopenia - will need to monitor his platelet counts closely as he is on heparin -Check hepatitis serology, B12, folate, ALEJANDRO, HIV -CBC in AM JANETT - resolved - improvedt from 1.27 to 0.93 -BMP in AM Transaminitis - elevated AST could be part of cardiac muscle injury and/or related to his COVID-19 - but will check hepatitis serology - consider ultrasound abdomen pending his hospital course - Glucose intolerance - start carb controlled diet - hemoglobin A1c - fasting glucose in a.m. Borderline hypercalcemia - check ionized calcium - ck PTH Hyperlipidemia -ck lipid panel - hold on statin because of his elevated CK. As mentioned above this could be related to his cardiac muscle but nonetheless will still hold. Time Spent With Patient Critical Care time: I spent a total of [] minutes of critical care time on this patient's care today; this time is exclusive of procedural time.
[2021-07-03 15:53] LABS: Add Manual Diff / Slide Review NO; Basophils Absolute Auto 0 /uL (0-100); Basophils Percent Auto 0.2 % (0-2); Eosinophils Absolute Auto 0 /uL (0-450); Eosinophils Percent Auto 0.3 % (2-4); Hematocrit 40.3 % (41-53); Hemoglobin 13.7 g/dL (13.5-17.5); Lymphocytes Absolute Auto 3600 /uL (1100-4500); Lymphocytes Percent Auto 43.2 % (25-40); Mean Corpuscular HGB Conc 34.1 % (30-36); Mean Corpuscular Volume 88.2 fL (80-100); Monocytes Absolute Auto 500 /uL (0-900); Monocytes Percent Auto 5.6 % (3-14); Neutrophils Absolute Auto 4200 /uL (1500-7000); Neutrophils Percent Auto 50.7 % (50-75); Platelet Count 164 X10^3/uL (150-400); Red Blood Cell Count 4.57 X10^6/uL (4.5-5.9); Red Cell Distribution Width 15.3 % (11.6-14.8); White Blood Cell Count 8.2 X10^3/uL (4.5-11.0)
[2021-07-03 16:00] LABS: Hemoglobin A1C% w Est Avg Glu 5.4 % (4.0-6.0)
[2021-07-03 16:02] LABS: PTT Partial Thromboplastin Tim 53 SECONDS (26.4-36.2)
[2021-07-03 17:09] LABS: Folate 9.5 ng/mL (2.76-20.0); Vitamin B12 Reflex MMA if <400 434 pg/mL (239-931)
[2021-07-03] MEDS: METOPROLOL IR 25 MG TABLET PO (17:34)
[2021-07-03] MEDS: HEPARIN DRIP 25,000 UNIT/500 ML IV.SOLN 16 UNIT IV (20:35)
[2021-07-03] MEDS: MIRTAZAPINE 15 MG TABLET 7.5 MG PO (20:54)
[2021-07-03] MEDS: DONEPEZIL 5 MG TABLET PO (20:54)
[2021-07-03] MEDS: DOCUSATE 100 MG CAPSULE PO (20:54)
[2021-07-03] MEDS: MAGNESIUM HYDROXIDE 30 ML UDC PO (20:57)
--- NOTE | 2021-07-03 22:54 | P.TELICUCN_ITS ---
History of Present Illness Consult details Chief complaint: DEHYDRATED,FALL,COUGH :: This patient was seen via real time interactive two-way audiovisual telecommunication. Narrative: 85 y.o. male w/ PMHx of dementia, prostate CA, hyperlipidemia who presented to [facility] earlier today after slumping over and unable to get up. Tested (+) for COVID- 19 but has been vaccinated x 3. Troponin and CPK were elevated; efforts were made to transfer patient to an outside hospital but these efforts were not successful. Started on IV heparin and therefore, patient on ICU status. Echo revealed normal LVEF% and grade I diastolic dysfunction. REPLACED BY [facility] Medical History COVID-19 Hyperlipidemia No significant medical problems Prostate cancer Surgical History H/O hemorrhoidectomy History of herniorrhaphy Hx of cholecystectomy Social History household members: spouse, family and children Smoking Status: Never smoker Current Medications Current Medications Medications: Home Medications aspirin 81 mg tablet,delayed release 81 mg PO DAILY #0 08/26/17 [History Confirmed 07/02/21] donepezil 5 mg tablet 5 mg PO BEDTIME 07/02/21 [History Confirmed 07/02/21] escitalopram oxalate 10 mg tablet 10 mg PO DAILY 07/02/21 [History Confirmed 07/02/21] mirtazapine 15 mg tablet 7.5 mg PO BEDTIME 07/02/21 [History Confirmed 07/02/21] rosuvastatin 20 mg tablet 20 mg PO BEDTIME 07/02/21 [History Confirmed 07/02/21] Visit Medications (administered) Generic Name Dose Route Start Last Admin Trade Name Freq PRN Reason Stop Dose Admin Aspirin 81 mg 07/03/21 09:00 07/03/21 10:20 Aspirin Ec 81 Mg Tablet PO 81 mg DAILY BRAD Administration Docusate Sodium 100 mg 07/03/21 21:00 07/03/21 20:54 Docusate 100 Mg Capsule PO 100 mg BID BRAD Administration Donepezil HCl 5 mg 07/02/21 21:00 07/03/21 20:54 Donepezil 5 Mg Tablet PO 5 mg BEDTIME BRAD Administration Escitalopram Oxalate 10 mg 07/03/21 09:00 07/03/21 10:20 Escitalopram 10 Mg Tablet PO 10 mg DAILY BRAD Administration Heparin Sodium/Dextrose 25,000 unit in 500 mls @ 20 mls/hr 07/02/21 15:45 07/03/21 20:35 Heparin Drip IV 800 units/hr CONT BRAD 16 mls/hr Administration Protocol 1,000 UNITS/HR Magnesium Hydroxide 30 ml 07/03/21 21:00 07/03/21 20:57 Magnesium Hydroxide 30 Ml Udc PO 30 ml BID BRAD Administration Metoprolol Tartrate 25 mg 07/03/21 13:45 07/03/21 17:35 Metoprolol Ir 25 Mg Tablet PO Not Given BID BRAD Mirtazapine 7.5 mg 07/02/21 21:00 07/03/21 20:54 Mirtazapine 15 Mg Tablet PO 7.5 mg BEDTIME BRAD Administration Review of Systems Review of Systems Narrative: Impossible due to dementia Exam Vital Signs (past 8 hours): - 07/03/21 15:30 07/03/21 16:00 07/03/21 17:00 Temperature 100.5 F H Pulse Rate 69 69 63 Respiratory Rate 20 28 H 31 H Blood Pressure 113/60 98/61 115/62 Pulse Oximetry 93 95 94 07/03/21 18:00 07/03/21 19:00 07/03/21 19:15 Temperature 98.2 F Pulse Rate 64 62 99 H Respiratory Rate 28 H 28 H 29 H Blood Pressure 120/64 108/61 Pulse Oximetry 93 93 94 07/03/21 19:30 07/03/21 19:45 07/03/21 20:00 Temperature 98.4 F Pulse Rate 79 62 72 Respiratory Rate 32 H 30 H 30 H Blood Pressure Pulse Oximetry 93 92 93 07/03/21 20:01 07/03/21 20:15 07/03/21 20:30 Temperature Pulse Rate 73 65 63 Respiratory Rate 33 H 30 H 30 H Blood Pressure 115/66 Pulse Oximetry 92 93 91 07/03/21 20:45 07/03/21 20:59 07/03/21 22:00 Temperature 98.4 F Pulse Rate 59 L 62 Respiratory Rate 28 H 24 Blood Pressure 104/66 Pulse Oximetry 91 94 Oxygen Delivery Method Room Air Oxygen Flow Rate 0 Const General: comfortable and other (no distress, sitting in chair; watching TV) Resp Effort & Inspection: normal respiratory effort (on RA) Objective Labs Result Diagrams: 07/03/21 15:30 07/03/21 04:45 Labs: Laboratory Results - last 24 hr 07/02/21 07/03/21 07/03/21 22:21 04:45 04:45 WBC 7.0 RBC 4.86 Hgb 14.3 Hct 42.7 MCV 87.9 MCH 29.4 MCHC 33.4 RDW 15.0 H Plt Count 106 L Neut % (Auto) 54.8 Lymph % (Auto) 38.0 [place] % (Auto) 6.6 Eos % (Auto) 0.4 L Baso % (Auto) 0.2 Neut # (Auto) 3800 Lymph # (Auto) 2700 [place] # (Auto) 500 Eos # (Auto) 0 Baso # (Auto) 0 APTT 78 H* D Sodium Potassium Chloride Carbon Dioxide BUN Creatinine Estimated GFR BUN/Creatinine Ratio Glucose Hemoglobin A1c Calcium Total Bilirubin AST ALT Alkaline Phosphatase Troponin I 0.144 H* Total Protein Albumin Globulin Albumin/Globulin Ratio Vitamin B12 Folate Nasal Screen MRSA (PCR) 07/03/21 07/03/21 07/03/21 04:45 11:05 15:30 WBC RBC Hgb Hct MCV MCH MCHC RDW Plt Count Neut % (Auto) Lymph % (Auto) [place] % (Auto) Eos % (Auto) Baso % (Auto) Neut # (Auto) Lymph # (Auto) [place] # (Auto) Eos # (Auto) Baso # (Auto) APTT 62 H D 53 H Sodium 140 Potassium 4.1 Chloride 110 H Carbon Dioxide 28 BUN 22 H Creatinine 0.93 Estimated GFR > 60.0 BUN/Creatinine Ratio 23.7 H Glucose 91 Hemoglobin A1c Calcium 10.6 H Total Bilirubin 1.2 AST 141 H ALT 41 Alkaline Phosphatase 68 Troponin I 0.125 H* Total Protein 6.3 Albumin 3.6 Globulin 2.7 Albumin/Globulin Ratio 1.3 Vitamin B12 Folate Nasal Screen MRSA (PCR) 07/03/21 07/03/21 07/03/21 15:30 15:30 15:30 WBC 8.2 RBC 4.57 Hgb 13.7 Hct 40.3 L MCV 88.2 MCH 30.0 MCHC 34.1 RDW 15.3 H Plt Count 164 Neut % (Auto) 50.7 Lymph % (Auto) 43.2 H [place] % (Auto) 5.6 Eos % (Auto) 0.3 L Baso % (Auto) 0.2 Neut # (Auto) 4200 Lymph # (Auto) 3600 [place] # (Auto) 500 Eos # (Auto) 0 Baso # (Auto) 0 APTT Sodium Potassium Chloride Carbon Dioxide BUN Creatinine Estimated GFR BUN/Creatinine Ratio Glucose Hemoglobin A1c 5.4 Calcium Total Bilirubin AST ALT Alkaline Phosphatase Troponin I Total Protein Albumin Globulin Albumin/Globulin Ratio Vitamin B12 434 Folate 9.5 Nasal Screen MRSA (PCR) 07/03/21 15:30 WBC RBC Hgb Hct MCV MCH MCHC RDW Plt Count Neut % (Auto) Lymph % (Auto) [place] % (Auto) Eos % (Auto) Baso % (Auto) Neut # (Auto) Lymph # (Auto) [place] # (Auto) Eos # (Auto) Baso # (Auto) APTT Sodium Potassium Chloride Carbon Dioxide BUN Creatinine Estimated GFR BUN/Creatinine Ratio Glucose Hemoglobin A1c Calcium Total Bilirubin AST ALT Alkaline Phosphatase Troponin I Total Protein Albumin Globulin Albumin/Globulin Ratio Vitamin B12 Folate Nasal Screen MRSA (PCR) Negative for mrsa Assessment & Plan Assessment and plan (1) Non-ST elevation IN (NSTEMI): Status: Acute Plan: -Continue ASA, IV heparin, statin, metoprolol as per bedside team (2) COVID: Status: Acute Plan: -Observe; no rx necessary as patient is on RA (3) Dementia: Status: Acute Plan: -Would address goals of care
[2021-07-04] VITALS (30 sets, daily range): BP systolic 120–140; BP diastolic 67–99; PULSE 59–77; RESP 6–36; TEMP 36.4–37.9; O2SAT 85–96
[2021-07-04] MEDS: METOPROLOL IR 25 MG TABLET PO ×3 (00:23→20:04)
[2021-07-04] MEDS: TRAZODONE 50 MG TABLET 25 MG PO ×2 (02:25→20:04)
--- NOTE | 2021-07-04 04:33 | PC.NURSE ---
Shift Note Patient was alert, confused and restless, at room air, no signs of distress and denies any pain/discomfort. Afebrile, vital signs are stable, within acceptable limits. on heparin drip at 800 units/hr, with orders to repeat PPT this AM. no signs of bleeding noted. Updates given to tele-ICU MD. Patient's breath sounds diminished bilaterally with expiratory wheezes noted. Sinus rhythm noted in the monitor, denies any chest pain/discomfort. Patient uses urinals with adequate urine output. Will continue to monitor.
[2021-07-04 05:17] LABS: Hematocrit 37.8 % (41-53); Hemoglobin 12.7 g/dL (13.5-17.5)
[2021-07-04 05:22] LABS: Alanine Aminotransferase 52 IU/L (<50); Albumin Globulin Ratio 1.1 (1.0-2.8); Alkaline Phosphatase 59 U/L (38-126); Aspartate Aminotransferase 128 IU/L (17-59); Bilirubin Total 1.1 mg/dL (0.2-1.3); Blood Urea Nitrogen 23 mg/dL (9-20); Calcium 10.6 mg/dL (8.4-10.2); Carbon Dioxide 29 mmol/L (22-32); Chloride 108 mmol/L (98-107); Estimated Glomerular Filt Rate > 60.0 mL/min (>60); Globulin 2.7 g/dL (1.7-4.1); Glucose 94 mg/dL (80-110); HEMOLYSIS < 15 (0-50); Potassium 3.7 mmol/L (3.4-5.1); Sodium 138 mmol/L (137-145); Total Protein 5.7 g/dL (6.3-8.2)
[2021-07-04 05:24] LABS: Cholesterol 83 mg/dL (140-199); HDL Cholesterol 33 mg/dL (40-60); LDL Cholesterol Calculated 37 mg/dL (<100); Triglycerides 66 mg/dL (35-150)
--- NOTE | 2021-07-04 06:12 | PM.PN.EICU ---
Subjective Subjective :: This patient was seen via real time interactive two-way audiovisual telecommunication. Synopsis: 85 y.o. male w/ PMHx of dementia, prostate CA, hyperlipidemia who presented to ED on 07/03 after slumping over and unable to get up.? Tested (+) for COVID-19 but has been vaccinated x 3.? Troponin and CPK were elevated; efforts were made to transfer patient to an outside hospital but these efforts were not successful.? Started on IV heparin and therefore, patient on ICU status. Echo revealed normal LVEF% and grade I diastolic dysfunction. 07/04: Patient seen and evaluated via AV communication. Eating breakfast this morning while watching the news. No complaints at this time. SPO2 high 90s on RA. He was transitioned to med surg early this morning. No leukocytosis Troponin peaked at 0.144 and trended down ECHO reviewed as above AST/ALT mildly elevated MRSA screen negative CXR 07/02 reviewed, low lung volumes, RLL early infiltrate vs atelectasis Current Medications Current Medications Medications: Home Medications aspirin 81 mg tablet,delayed release 81 mg PO DAILY #0 08/26/17 [History Confirmed 07/02/21] donepezil 5 mg tablet 5 mg PO BEDTIME 07/02/21 [History Confirmed 07/02/21] escitalopram oxalate 10 mg tablet 10 mg PO DAILY 07/02/21 [History Confirmed 07/02/21] mirtazapine 15 mg tablet 7.5 mg PO BEDTIME 07/02/21 [History Confirmed 07/02/21] rosuvastatin 20 mg tablet 20 mg PO BEDTIME 07/02/21 [History Confirmed 07/02/21] Visit Medications (administered) Generic Name Dose Route Start Last Admin Trade Name Estebanq PRN Reason Stop Dose Admin Aspirin 81 mg 07/03/21 09:00 07/03/21 10:20 Aspirin Ec 81 Mg Tablet PO 81 mg DAILY BRAD Administration Docusate Sodium 100 mg 07/03/21 21:00 07/03/21 20:54 Docusate 100 Mg Capsule PO 100 mg BID BRAD Administration Donepezil HCl 5 mg 07/02/21 21:00 07/03/21 20:54 Donepezil 5 Mg Tablet PO 5 mg BEDTIME BRAD Administration Escitalopram Oxalate 10 mg 07/03/21 09:00 07/03/21 10:20 Escitalopram 10 Mg Tablet PO 10 mg DAILY BRAD Administration Heparin Sodium/Dextrose 25,000 unit in 500 mls @ 20 mls/hr 07/02/21 15:45 07/03/21 20:35 Heparin Drip IV 800 units/hr CONT BRAD 16 mls/hr Administration Protocol 1,000 UNITS/HR Magnesium Hydroxide 30 ml 07/03/21 21:00 07/03/21 20:57 Magnesium Hydroxide 30 Ml Udc PO 30 ml BID BRAD Administration Metoprolol Tartrate 25 mg 07/03/21 13:45 07/04/21 00:23 Metoprolol Ir 25 Mg Tablet PO 25 mg BID BRAD Administration Mirtazapine 7.5 mg 07/02/21 21:00 07/03/21 20:54 Mirtazapine 15 Mg Tablet PO 7.5 mg BEDTIME BRAD Administration Trazodone HCl 25 mg 07/04/21 02:30 07/04/21 02:25 Trazodone 50 Mg Tablet PO 25 mg BEDTIME BRAD Administration Objective Labs Result Diagrams: 07/04/21 04:50 07/04/21 04:50 Labs: Laboratory Results - last 24 hr 07/03/21 07/03/21 07/03/21 11:05 15:30 15:30 WBC 8.2 RBC 4.57 Hgb 13.7 Hct 40.3 L MCV 88.2 MCH 30.0 MCHC 34.1 RDW 15.3 H Plt Count 164 Neut % (Auto) 50.7 Lymph % (Auto) 43.2 H [place] % (Auto) 5.6 Eos % (Auto) 0.3 L Baso % (Auto) 0.2 Neut # (Auto) 4200 Lymph # (Auto) 3600 [place] # (Auto) 500 Eos # (Auto) 0 Baso # (Auto) 0 APTT 62 H D 53 H Sodium Potassium Chloride Carbon Dioxide BUN Creatinine Estimated GFR BUN/Creatinine Ratio Glucose Hemoglobin A1c Calcium Total Bilirubin AST ALT Alkaline Phosphatase Total Protein Albumin Globulin Albumin/Globulin Ratio Triglycerides Cholesterol LDL Cholesterol, Calc HDL Cholesterol Vitamin B12 Folate Nasal Screen MRSA (PCR) 07/03/21 07/03/21 07/03/21 15:30 15:30 15:30 WBC RBC Hgb Hct MCV MCH MCHC RDW Plt Count Neut % (Auto) Lymph % (Auto) [place] % (Auto) Eos % (Auto) Baso % (Auto) Neut # (Auto) Lymph # (Auto) [place] # (Auto) Eos # (Auto) Baso # (Auto) APTT Sodium Potassium Chloride Carbon Dioxide BUN Creatinine Estimated GFR BUN/Creatinine Ratio Glucose Hemoglobin A1c 5.4 Calcium Total Bilirubin AST ALT Alkaline Phosphatase Total Protein Albumin Globulin Albumin/Globulin Ratio Triglycerides Cholesterol LDL Cholesterol, Calc HDL Cholesterol Vitamin B12 434 Folate 9.5 Nasal Screen MRSA (PCR) Negative for mrsa 07/04/21 07/04/21 07/04/21 04:50 04:50 04:50 WBC RBC Hgb 12.7 L Hct 37.8 L MCV MCH MCHC RDW Plt Count Neut % (Auto) Lymph % (Auto) [place] % (Auto) Eos % (Auto) Baso % (Auto) Neut # (Auto) Lymph # (Auto) [place] # (Auto) Eos # (Auto) Baso # (Auto) APTT Sodium 138 Potassium 3.7 Chloride 108 H Carbon Dioxide 29 BUN 23 H Creatinine 0.96 Estimated GFR > 60.0 BUN/Creatinine Ratio 24.0 H Glucose 94 Hemoglobin A1c Calcium 10.6 H Total Bilirubin 1.1 AST 128 H ALT 52 H Alkaline Phosphatase 59 Total Protein 5.7 L Albumin 3.0 L Globulin 2.7 Albumin/Globulin Ratio 1.1 Triglycerides 66 Cholesterol 83 L LDL Cholesterol, Calc 37 HDL Cholesterol 33 L Vitamin B12 Folate Nasal Screen MRSA (PCR) Exam Vital Signs (past 8 hours): - 07/03/21 22:15 07/03/21 22:30 07/03/21 22:45 Temperature Pulse Rate 62 57 L 65 Respiratory Rate 30 H 29 H 25 H Blood Pressure Pulse Oximetry 93 94 93 07/03/21 23:00 07/03/21 23:03 07/03/21 23:07 Temperature 98.0 F Pulse Rate 71 64 64 Respiratory Rate 33 H 23 23 Blood Pressure 129/72 129/72 Pulse Oximetry 94 95 95 07/03/21 23:15 07/03/21 23:30 07/03/21 23:45 Temperature Pulse Rate 59 L 59 L 74 Respiratory Rate 18 16 34 H Blood Pressure Pulse Oximetry 93 92 93 07/04/21 00:00 07/04/21 00:15 07/04/21 00:30 Temperature Pulse Rate 77 61 64 Respiratory Rate 36 H 6 L 27 H Blood Pressure Pulse Oximetry 92 93 92 07/04/21 00:45 07/04/21 00:53 07/04/21 01:00 Temperature Pulse Rate 66 61 59 L Respiratory Rate 23 23 28 H Blood Pressure 129/72 Pulse Oximetry 94 93 92 07/04/21 01:15 07/04/21 01:30 07/04/21 01:34 Temperature Pulse Rate 59 L 72 62 Respiratory Rate 26 H 24 28 H Blood Pressure 134/79 Pulse Oximetry 92 92 94 07/04/21 01:37 07/04/21 01:45 07/04/21 02:00 Temperature Pulse Rate 62 59 L 63 Respiratory Rate 28 H 20 24 Blood Pressure 134/79 133/76 Pulse Oximetry 94 91 91 07/04/21 02:08 07/04/21 02:15 07/04/21 02:30 Temperature Pulse Rate 66 65 61 Respiratory Rate 29 H 17 23 Blood Pressure 133/76 Pulse Oximetry 85 L 95 94 07/04/21 02:45 07/04/21 03:00 07/04/21 03:15 Temperature Pulse Rate 60 65 64 Respiratory Rate 23 14 26 H Blood Pressure 120/71 Pulse Oximetry 94 93 93 07/04/21 03:30 07/04/21 03:45 07/04/21 04:00 Temperature Pulse Rate 71 63 62 Respiratory Rate 35 H 25 H 20 Blood Pressure Pulse Oximetry 90 L 95 96 07/04/21 04:15 07/04/21 05:00 07/04/21 06:00 Temperature 98.9 F 98.6 F Pulse Rate 59 L 63 69 Respiratory Rate 14 24 19 Blood Pressure 140/99 H 132/80 Pulse Oximetry 94 92 94 Oxygen Delivery Method Room Air Oxygen Flow Rate 0 Const General: healthy appearing, comfortable and well developed Resp Effort & Inspection: normal respiratory effort and symmetric chest movement Assessment & Plan Assessment & Plan narrative: Assessment and plan (1) Non-ST elevation [place] (NSTEMI): ?Status:?Acute ?Plan: -Continue ASA, IV heparin, statin, metoprolol as per bedside team (2) COVID: ?Status:?Acute ?Plan: -Observe; no rx necessary as patient remains on RA (3) Dementia: ?Status:?Acute ?Plan: -Would address goals of care -Patient transferred out of ICU by primary team. Please contact our service for any questions or concerns. Time Spent With Patient Critical Care time: I spent a total of [] minutes of critical care time on this patient's care today; this time is exclusive of procedural time.
[2021-07-04 07:30] LABS: PTT Partial Thromboplastin Tim 57 SECONDS (26.4-36.2)
[2021-07-04] MEDS: ACETAMINOPHEN 325 MG TABLET 650 MG PO (10:24)
[2021-07-04] MEDS: DOCUSATE 100 MG CAPSULE PO ×2 (10:25→20:05)
[2021-07-04] MEDS: ASPIRIN EC 81 MG TABLET PO (10:25)
[2021-07-04] MEDS: PANTOPRAZOLE DR 40 MG TABLET PO (10:25)
[2021-07-04] MEDS: ESCITALOPRAM 10 MG TABLET PO (10:25)
--- NOTE | 2021-07-04 12:10 | DIET.CONS2 ---
Dietary Inpatient Consultation Note Admission Date: 07/03/2021 13:50 RD Note: Kitchen to send ONS Ensure Max c lunches to support high PRO and micronutrient needs of this covid+ patient. Pts renal fxn now WNL. Diet: 07/03/21 Dinner Carbohydrate Consistent Diet Diet Modifications: Ensure Max c lunch Carbohydrate level: Medium (3 CHO) Electronically Signed by: Edith Knutson 07/04/21 12:10 Clinical Dietitian [address] [address]
--- NOTE | 2021-07-04 15:10 | PM.PN.1 ---
Subjective Subjective Date Patient Seen: 07/04/21 Time Patient Seen: 08:00 Interval history: Today he says he feels well. He is interested in going home. He denies chest pain, shortness of breath, dizziness. Exam Vital Signs (past 8 hours): - 07/04/21 08:00 07/04/21 09:40 07/04/21 10:00 Temperature 100.3 F H 97.8 F Pulse Rate 67 61 Respiratory Rate 18 24 Blood Pressure 138/69 Pulse Oximetry 94 93 07/04/21 14:26 Temperature 97.6 F Pulse Rate 69 Respiratory Rate 17 Blood Pressure 126/67 Pulse Oximetry 95 Oxygen Delivery Method Room Air Oxygen Flow Rate 0 Narrative Exam Narrative: GEN: no acute distress RESPIRATORY:? clear?bilaterally CARDIOVASCULAR:?regular rate and rhythm Objective Labs Result Diagrams: 07/04/21 04:50 07/04/21 04:50 Labs: Laboratory Results - last 24 hr 07/03/21 07/03/21 07/03/21 15:30 15:30 15:30 WBC 8.2 RBC 4.57 Hgb 13.7 Hct 40.3 L MCV 88.2 MCH 30.0 MCHC 34.1 RDW 15.3 H Plt Count 164 Neut % (Auto) 50.7 Lymph % (Auto) 43.2 H [place] % (Auto) 5.6 Eos % (Auto) 0.3 L Baso % (Auto) 0.2 Neut # (Auto) 4200 Lymph # (Auto) 3600 [place] # (Auto) 500 Eos # (Auto) 0 Baso # (Auto) 0 APTT 53 H Sodium Potassium Chloride Carbon Dioxide BUN Creatinine Estimated GFR BUN/Creatinine Ratio Glucose Hemoglobin A1c 5.4 Calcium Total Bilirubin AST ALT Alkaline Phosphatase Total Protein Albumin Globulin Albumin/Globulin Ratio Triglycerides Cholesterol LDL Cholesterol, Calc HDL Cholesterol Vitamin B12 Folate Nasal Screen MRSA (PCR) 07/03/21 07/03/21 07/04/21 15:30 15:30 04:50 WBC RBC Hgb Hct MCV MCH MCHC RDW Plt Count Neut % (Auto) Lymph % (Auto) [place] % (Auto) Eos % (Auto) Baso % (Auto) Neut # (Auto) Lymph # (Auto) [place] # (Auto) Eos # (Auto) Baso # (Auto) APTT Sodium Potassium Chloride Carbon Dioxide BUN Creatinine Estimated GFR BUN/Creatinine Ratio Glucose Hemoglobin A1c Calcium Total Bilirubin AST ALT Alkaline Phosphatase Total Protein Albumin Globulin Albumin/Globulin Ratio Triglycerides 66 Cholesterol 83 L LDL Cholesterol, Calc 37 HDL Cholesterol 33 L Vitamin B12 434 Folate 9.5 Nasal Screen MRSA (PCR) Negative for mrsa 07/04/21 07/04/21 07/04/21 04:50 04:50 07:00 WBC RBC Hgb 12.7 L Hct 37.8 L MCV MCH MCHC RDW Plt Count Neut % (Auto) Lymph % (Auto) [place] % (Auto) Eos % (Auto) Baso % (Auto) Neut # (Auto) Lymph # (Auto) [place] # (Auto) Eos # (Auto) Baso # (Auto) APTT 57 H Sodium 138 Potassium 3.7 Chloride 108 H Carbon Dioxide 29 BUN 23 H Creatinine 0.96 Estimated GFR > 60.0 BUN/Creatinine Ratio 24.0 H Glucose 94 Hemoglobin A1c Calcium 10.6 H Total Bilirubin 1.1 AST 128 H ALT 52 H Alkaline Phosphatase 59 Total Protein 5.7 L Albumin 3.0 L Globulin 2.7 Albumin/Globulin Ratio 1.1 Triglycerides Cholesterol LDL Cholesterol, Calc HDL Cholesterol Vitamin B12 Folate Nasal Screen MRSA (PCR) PFSH Medical History COVID-19 Hyperlipidemia No significant medical problems Prostate cancer Surgical History H/O hemorrhoidectomy History of herniorrhaphy Hx of cholecystectomy Social History household members: spouse, family and children Smoking Status: Never smoker Assessment & Plan Assessment & Plan narrative: 1.NSTEMI, acute - continue with IV heparin infusion times 48 hours as per cardiology recommendations - med management with aspirin, beta-kristofer - holding on statin as a CK is significantly elevated. ? This could be cardiac in origin but will still hold his statin until his CK significantly improves 2. COVID positive ?patient is satting greater than 90% on room air ?no medical intervention? required; i.e. no dexamethasone or remdesivir indicated 3. Thrombocytopenia - will need to monitor his platelet counts closely as he is on heparin -Check?hepatitis serology, B12, folate, ALEJANDRO, HIV -CBC in AM 4. JANETT -? resolved - improvedt from 1.27 to 0.93 -BMP in AM 5. Transaminitis -?elevated AST could be part of cardiac muscle injury? and/or related to his COVID-19 - but will check hepatitis serology - consider ultrasound abdomen pending his hospital course 6. Elevated glucose - start carb controlled diet - hemoglobin A1c is normal at 5.4, not consistent with diabetes 6. Hypercalcemia - check ionized calcium - follow up PTH 7. Hyperlipidemia -ck? lipid panel -? hold on statin because of his elevated CK.? As mentioned above this could be related to his cardiac muscle but nonetheless will still hold. Time Spent With Patient Critical Care time: I spent a total of [] minutes of critical care time on this patient's care today; this time is exclusive of procedural time.
[2021-07-04] MEDS: MIRTAZAPINE 15 MG TABLET 7.5 MG PO (20:02)
[2021-07-04] MEDS: MAGNESIUM HYDROXIDE 30 ML UDC PO (20:02)
[2021-07-04] MEDS: DONEPEZIL 5 MG TABLET PO (20:03)
--- NOTE | 2021-07-04 21:28 | PC.NURSE ---
Patient very impulsive and confused requiring constant reorientation. High fall risk. Extremely hard of hearing, hearing aids do not appear to be functioning. Requested one on one sitter to monitor and reorient for patient safety.
[2021-07-05] VITALS: BP 129/69; PULSE 70; RESP 19; TEMP 36.7; O2SAT 93
[2021-07-05 02:10] LABS: HBsAg Screen Negative (Negative); Hepatitis A Antibody IgM Negative (Negative); Hepatitis B Core Antibody IgM Negative (Negative); Hepatitis C Antibody <0.1 s/co ratio (0.0-0.9)
[2021-07-05 04:00] VITALS: PULSE 79; RESP 20; TEMP 36.9; O2SAT 94
[2021-07-05] MEDS: ACETAMINOPHEN 325 MG TABLET 650 MG PO (08:39)
[2021-07-05] MEDS: METOPROLOL IR 25 MG TABLET PO (08:40)
[2021-07-05] MEDS: ASPIRIN EC 81 MG TABLET PO (08:40)
[2021-07-05] MEDS: DOCUSATE 100 MG CAPSULE PO (08:40)
[2021-07-05] MEDS: ESCITALOPRAM 10 MG TABLET PO (08:40)
[2021-07-05] MEDS: PANTOPRAZOLE DR 40 MG TABLET PO (08:42)
[2021-07-05 09:00] VITALS: BP 157/76; PULSE 73; RESP 26; TEMP 36.9; O2SAT 93
[2021-07-05 09:21] VITALS: O2SAT 92
[2021-07-05 10:14] LABS: Hematocrit 40.3 % (41-53); Hemoglobin 13.6 g/dL (13.5-17.5); Mean Corpuscular HGB Conc 33.8 % (30-36); Mean Corpuscular Hemoglobin 29.6 PG (26-34); Mean Corpuscular Volume 87.4 fL (80-100); Platelet Count 111 X10^3/uL (150-400); Red Cell Distribution Width 15.2 % (11.6-14.8); White Blood Cell Count 4.9 X10^3/uL (4.5-11.0)
[2021-07-05 10:30] LABS: Alanine Aminotransferase 77 IU/L (<50); Albumin 3.6 g/dL (3.5-5.0); Albumin Globulin Ratio 1.3 (1.0-2.8); Alkaline Phosphatase 71 U/L (38-126); Aspartate Aminotransferase 128 IU/L (17-59); Bilirubin Total 1.2 mg/dL (0.2-1.3); Blood Urea Nitrogen 18 mg/dL (9-20); Calcium 10.6 mg/dL (8.4-10.2); Carbon Dioxide 23 mmol/L (22-32); Chloride 108 mmol/L (98-107); Estimated Glomerular Filt Rate > 60.0 mL/min (>60); Globulin 2.7 g/dL (1.7-4.1); Glucose 120 mg/dL (80-110); HEMOLYSIS < 15 (0-50); PTT Partial Thromboplastin Tim 30 SECONDS (26.4-36.2); Potassium 3.8 mmol/L (3.4-5.1); Sodium 136 mmol/L (137-145); Total Protein 6.3 g/dL (6.3-8.2)
[2021-07-05 11:00] VITALS: BP 91/53; PULSE 58; RESP 24; TEMP 36.7; O2SAT 92
--- NOTE | 2021-07-05 11:32 | PC.NURSE ---
midshift vital signs show BP at 91/53 HR in upper 50's, patient had been napping in chair at the time. Denies complaints other than i'm sleepy but I think I am ok. Dr. Conrad notified and no new orders received. Will continue to monitor.
[2021-07-05 13:45] VITALS: BP 103/59; PULSE 59; RESP 24; O2SAT 94
--- NOTE | 2021-07-05 14:09 | CM.DANOTE ---
DCP Assessment: Patient is a 85 yr old male who was admitted for COVID and NSTEMI. CM attempted to speak with the patient but he wasn't answering his phone in his room. Since the patient is COVID + CM is unable to go into the patients room. CM called patients Dotty. According to the patients patient is Independent with ADLs. he does not drive but doesn't need any help with dressing or ambulating. Patient does have dementia at baseline. Patients stated that her plan is to pick the patient up when he is medically stable with her adult grandson Nahum. I: Medicare adn [employer] federal Plan: DC home with and adult grandson when medically stable. No identified DC planning needs at this time Cm department will follow to assist with any new DC planning needs that may arise. Soila Flores RNapparel trimmings sales representative Discharge Planning/Care Management CM Discharge Assessment Start: 07/05/21 14:07 Freq: Status: Active Protocol: Document 07/05/21 14:07 (Rec: 07/05/21 14:08 [id number]) Discharge Planning Assessment Assigned Impersonator Character Soila Flores RNapparel trimmings sales representative DPOA/Assigned Designee Name Dotty Bullock () Contact Information [phone] Advance Directives? Yes Advance Directives on File No History Provided By Family Member,Medical Record Prior Living Arrangements House Household Members spouse,family,children Type of transporation used prior to Relies on Others admit Comment patients or patients grandson drives Independent with ADL's Yes Caregiver for Another No DME Already Rented / Owned FWW / Walker Barriers to Discharge No Discharge Plan Home Referrals Initiated None needed Whiteboard Updated in Patient Room with Yes name and ext. # of Impersonator Character Review Status In Process Next Review Type Continued Stay Review
--- NOTE | 2021-07-05 14:26 | P.PN_ITS ---
Subjective Subjective Interval history: Patient is hard of hearing but was able to interact well when I spoke into his left ear. He reports feeling well and endorses a healthy appetite. Denies any issues with PO intake. Denies any urinary or bowel difficulties. Exam Vital Signs (past 8 hours): - 07/05/21 09:00 07/05/21 09:21 07/05/21 11:00 Temperature 98.5 F 98.1 F Pulse Rate 73 58 L Respiratory Rate 26 H 24 Blood Pressure 157/76 H 91/53 L Pulse Oximetry 93 92 92 Oxygen Delivery Method Room Air Oxygen Flow Rate 0 Const Other: Patient sitting up in chair upon my entering the room, appearing comfortable and eating breakfast Eyes Other: No scleral icterus appreciated Neck Other: No carotid bruits appreciated. Resp Other: Lung sounds diminished bilaterally, and no adventitious breath sounds appreciated. Cardio Other: RRR. S1 and S2 heart sounds auscultated, with no extra heart sounds or murmurs appreciated. No peripheral edema noted. GI Other: Soft, non-distended, non-tender. Bowel sounds present. Skin Other: No grossly abnormal skin lesions appreciated. Extrem Other: Palpable and equal radial and dorsalis pedis pulses bilaterally. Objective Labs Result Diagrams: 07/05/21 09:39 07/05/21 09:39 Labs: Laboratory Results - last 24 hr 07/03/21 07/05/21 07/05/21 15:30 09:39 09:39 WBC 4.9 RBC 4.60 Hgb 13.6 Hct 40.3 L MCV 87.4 MCH 29.6 MCHC 33.8 RDW 15.2 H Plt Count 111 L APTT Sodium 136 L Potassium 3.8 Chloride 108 H Carbon Dioxide 23 BUN 18 Creatinine 1.00 Estimated GFR > 60.0 BUN/Creatinine Ratio 18.0 Glucose 120 H Calcium 10.6 H Total Bilirubin 1.2 AST 128 H ALT 77 H Alkaline Phosphatase 71 Total Protein 6.3 Albumin 3.6 Globulin 2.7 Albumin/Globulin Ratio 1.3 Hepatitis A IgM Ab Negative Hep Bs Antigen Negative Hep B Core IgM Ab Negative Hepatitis C Antibody <0.1 Hep C Ab Signal/Cutoff Comment 07/05/21 09:39 WBC RBC Hgb Hct MCV MCH MCHC RDW Plt Count APTT 30 D Sodium Potassium Chloride Carbon Dioxide BUN Creatinine Estimated GFR BUN/Creatinine Ratio Glucose Calcium Total Bilirubin AST ALT Alkaline Phosphatase Total Protein Albumin Globulin Albumin/Globulin Ratio Hepatitis A IgM Ab Hep Bs Antigen Hep B Core IgM Ab Hepatitis C Antibody Hep C Ab Signal/Cutoff [facility] Medical History COVID-19 Hyperlipidemia No significant medical problems Prostate cancer Surgical History H/O hemorrhoidectomy History of herniorrhaphy Hx of cholecystectomy Social History household members: spouse, family and children Smoking Status: Never smoker Assessment & Plan Assessment & Plan narrative: 1. NSTEMI, acute - continue with IV heparin infusion times 48 hours as per cardiology recommendations - med management with aspirin, beta-kristofer - holding on statin as a CK is significantly elevated. This could be cardiac in origin but will still hold his statin until his CK improves. 2. COVID-positive without respiratory compromise - patient is saturating greater than 90% on room air - no medical intervention?required; i.e. no dexamethasone or remdesivir indicated 3. Thrombocytopenia - will need to monitor his platelet counts closely as he is on heparin 4. JANETT - improved from 1.27 to 0.93 5. Transaminitis -?elevated AST could be part of cardiac muscle injury and/or related to his COVID-19 - consider US abdomen pending his hospital course 6. Elevated glucose - start carb controlled diet - hemoglobin A1c is normal at 5.4, not consistent with diabetes 6. Hypercalcemia - check ionized calcium - follow up PTH 7. Hyperlipidemia - lipid panel - hold on statin because of his elevated CK. As mentioned above this could be related to his cardiac muscle but nonetheless will still hold. VTE prophylaxis: Heparin on-board for NSTEMI Time Spent With Patient Critical Care time: I spent a total of [] minutes of critical care time on this patient's care today; this time is exclusive of procedural time. Quality VTE Deep Vein Thrombosis/Pulmonary Embolism Present on Admission: No MIPS - Admit I confirm the patient?s Advance Care Plan is present, Code status is documented, Surrogate decision maker is in patient?s record [If Yes, STOP here]: Yes
--- NOTE | 2021-07-05 15:03 | PM.DS.1 ---
History of Present Illness History of Present Illness Chief complaint: DEHYDRATED,FALL,COUGH Discharge Providers Provider Date of admission: 07/03/21 13:50 Discharge Date: 07/05/21 Primary care physician: Campos Quintana MD Discharge provider: Jazimn Conrad MD Summary Hospital Course Discharge Diagnosis: 1. NSTEMI, acute, resolved 2. COVID-positive without respiratory compromise 3. Thrombocytopenia, chronic 4. JANETT, improved 5. Transaminitis 6. Elevated glucose 7. Hypercalcemia 8. Hyperlipidemia Exam Vital Signs (past 8 hours): - 07/05/21 09:00 07/05/21 09:21 07/05/21 11:00 Temperature 98.5 F 98.1 F Pulse Rate 73 58 L Respiratory Rate 26 H 24 Blood Pressure 157/76 H 91/53 L Pulse Oximetry 93 92 92 07/05/21 13:45 Temperature Pulse Rate 59 L Respiratory Rate 24 Blood Pressure 103/59 L Pulse Oximetry 94 Oxygen Delivery Method Room Air Oxygen Flow Rate 0 Narrative Exam Narrative: Const Other: Patient sitting up in chair upon my entering the room, appearing comfortable and eating breakfast Eyes Other: No scleral icterus appreciated Neck Other: No carotid bruits appreciated. Resp Other: Lung sounds diminished bilaterally, and no adventitious breath sounds appreciated. Cardio Other: RRR. S1 and S2 heart sounds auscultated, with no extra heart sounds or murmurs appreciated. No peripheral edema noted. GI Other: Soft, non-distended, non-tender. Bowel sounds present. Skin Other: No grossly abnormal skin lesions appreciated. Extrem Other: Palpable and equal radial and dorsalis pedis pulses bilaterally. Objective Labs Result Diagrams: 07/05/21 09:39 07/05/21 09:39 Labs: Laboratory Results - last 24 hr 07/03/21 07/05/21 07/05/21 15:30 09:39 09:39 WBC 4.9 RBC 4.60 Hgb 13.6 Hct 40.3 L MCV 87.4 MCH 29.6 MCHC 33.8 RDW 15.2 H Plt Count 111 L APTT Sodium 136 L Potassium 3.8 Chloride 108 H Carbon Dioxide 23 BUN 18 Creatinine 1.00 Estimated GFR > 60.0 BUN/Creatinine Ratio 18.0 Glucose 120 H Calcium 10.6 H Total Bilirubin 1.2 AST 128 H ALT 77 H Alkaline Phosphatase 71 Total Protein 6.3 Albumin 3.6 Globulin 2.7 Albumin/Globulin Ratio 1.3 Hepatitis A IgM Ab Negative Hep Bs Antigen Negative Hep B Core IgM Ab Negative Hepatitis C Antibody <0.1 Hep C Ab Signal/Cutoff Comment 07/05/21 09:39 WBC RBC Hgb Hct MCV MCH MCHC RDW Plt Count APTT 30 D Sodium Potassium Chloride Carbon Dioxide BUN Creatinine Estimated GFR BUN/Creatinine Ratio Glucose Calcium Total Bilirubin AST ALT Alkaline Phosphatase Total Protein Albumin Globulin Albumin/Globulin Ratio Hepatitis A IgM Ab Hep Bs Antigen Hep B Core IgM Ab Hepatitis C Antibody Hep C Ab Signal/Cutoff [facility] Medical History COVID-19 Hyperlipidemia No significant medical problems Prostate cancer Surgical History H/O hemorrhoidectomy History of herniorrhaphy Hx of cholecystectomy Social History household members: spouse, family and children Smoking Status: Never smoker Discharge Assessment & Plan Assessment and Plan Assessment: 1. NSTEMI, acute - completed 48 hours of medical management with IV heparin, aspirin, etc., per cardiology recommendation - will resume outpatient statin therapy on discharge, as elevation in CK is likely cardiac-related, and benefits outweigh risks 2. COVID-positive without respiratory compromise - patient is saturating greater than 90% on room air - no medical intervention?required; i.e. no dexamethasone or remdesivir indicated 3. Thrombocytopenia - will need to monitor his platelet counts outpatient, and potentially bone marrow biopsy if this continues to be an issue 4. JANETT - improved from 1.27 to 0.93 5. Transaminitis -?elevated AST could be part of cardiac muscle injury and/or related to his COVID-19 6. Elevated glucose - start carb controlled diet - hemoglobin A1c is normal at 5.4, not consistent with diabetes 6. Hypercalcemia, chronic, with hx of parathyroid adenoma appreciated, per patient's daughter's report 7. Hyperlipidemia - statin therapy as per problem 1 Discharge Plan Discharge Plan Patient Disposition: Home Discharge orders & Medications Prescriptions: Continued aspirin 81 MG tablet,delayed release (DR/EC) 81 mg PO DAILY Qty: 0 0RF donepezil 5 mg tablet 5 mg PO BEDTIME 0RF Label Comments: TAKE 1 TABLET BY MOUTH NIGHTLY mirtazapine 15 mg tablet 7.5 mg PO BEDTIME 0RF Label Comments: TAKE 1/2 TABLET BY MOUTH NIGHTLY AT BEDTIME escitalopram oxalate 10 mg tablet 10 mg PO DAILY 0RF Label Comments: TAKE ONE TABLET BY MOUTH ONE TIME DAILY rosuvastatin 20 mg tablet 20 mg PO BEDTIME 0RF Label Comments: TAKE ONE TABLET BY MOUTH ONE TIME DAILY Follow up/Referrals: Campos Quintana MD [Primary Care Provider] - Discharge Data Primary Care Provider: Campos Quintana Quality VTE Deep Vein Thrombosis/Pulmonary Embolism Present on Admission: No
[2021-07-05 15:46] LABS: Calcium 10.2 mg/dL (8.6-10.2); Ionized Calcium 5.8 mg/dL (4.5-5.6); Parathyroid Hormone, Intact 131 pg/mL (15-65)
--- NOTE | 2021-07-05 15:58 | PC.NURSE ---
Discharge order received, and patient's grandson came to pick him up. Clarified with Dr. Conrad prior to discharge that beta kristofer will not be prescribed upon discharge (no prescription seen), he reports yes it will be held at this time due to HR and BP. IV dc'd intact. Reviewed discharge instructions and home care handouts with patient's grandson John, he states understanding and has no further questions at this time. Patient is to follow up with PCP and per MD recommends having follow up lab work done. Escorted out via wheelchair with all his belongings (including his dentures in, glasses on, and left hearing aid in). Instructed to seek emergent care for worsening symptoms, chest pain or shortness of breath.
[2021-07-06 13:36] LABS: HIV 1 RNA Non Reactive
[2021-07-06 14:36] LABS: HIV 2 RNA Non Reactive (Non Reactive)
[2021-07-06 18:10] LABS: ANA Screen, IFA Negative (.)
== END 2021-07-05 15:50 | disposition home or self-care (01) | DRG 280 ==
LOC: ED 07-03 13:34 → AC 07-03 14:08 → ICU 07-04 12:45 → AC 07-05 08:03 → ICU 07-05 08:04
PROVIDERS: Emergency Medicine; Internal Medicine; Admitting Provider Internal Medicine; Emergency Provider Emergency Medicine; Family Provider Family Medicine; PCP Internal Medicine; Referring Provider Emergency Medicine; Visit Provider Internal Medicine
DX: I21.4 Non-ST elevation (NSTEMI) myocardial infarction (principal); U07.1 COVID-19; N17.9 Acute kidney failure, unspecified; D69.6 Thrombocytopenia, unspecified; F03.90 Unspecified dementia, unspecified severity, without behavioral disturbance, psychotic disturbance, mood disturbance, and anxiety; R73.9 Hyperglycemia, unspecified; E78.5 Hyperlipidemia, unspecified
CPT/HCPCS: 36415; 70450; 71045; 80053; 80061; 80074; 81003; 81015; 82310; 82330; 82550; 82553; 82607; 82746; 83036; 83690; 83735; 83880; 83970; 84484; 85014; 85018; 85025; 85027; 85610; 85730; 86038; 87535; 87538; 87635; 87797; 93005; 93306; 94762; 96361; 96365; 96366; 96376; 99285; C9803; J1644

== ENCOUNTER 2023-01-23 13:06 | Emergency (ER) | payer MEDICARE, BC, SELFPAY ==
[2021-07-03 16:16] VITALS: BMI 29.6
[2023-01-23] VITALS (8 sets, daily range): BP systolic 103–153; BP diastolic 63–91; PULSE 63–81; RESP 14–18; TEMP 36.2; O2SAT 93–96; BMI 29.1
--- NOTE | 2023-01-23 13:24 | DI.CT.S_ITS ---
PROCEDURE: CT CERVICAL SPINE WO CON INDICATIONS: fall TECHNIQUE: Noncontrast 3 mm thick sections acquired from the skull base to the T4 level. Sagittal and coronal reformats were then constructed. For radiation dose reduction, the following was used: automated exposure control, adjustment of mA and/or kV according to patient size. COMPARISON: None. FINDINGS: Image quality: Excellent. Bones: No fractures or dislocations. Visualized superior ribs are intact. Prominent multilevel degenerative changes are present. Soft tissues: Prevertebral soft tissues are normal in thickness. No paravertebral hematomas. No apical pneumothoraces. IMPRESSION: Multilevel degenerative changes without visualized fracture. Dictated by: Kenyatta Mejia M.D. on 01/23/2023 at 13:55 Approved by: Kenyatta Mejia M.D. on 01/23/2023 at 13:56
--- NOTE | 2023-01-23 13:24 | DI.CT.S_ITS ---
PROCEDURE: CT FACIAL BONES WO CON INDICATIONS: fall TECHNIQUE: Noncontrast 2.5 mm thick axial images acquired from the mandible through the frontal sinuses, with coronal and sagittal reformatting. For radiation dose reduction, the following was used: automated exposure control, adjustment of mA and/or kV according to patient size. COMPARISON: [facility], CT, CT HEAD/BRAIN WO CON, 01/23/2023, 13:37. [facility], CT, CT CERVICAL SPINE WO CON, 01/23/2023, 13:37. FINDINGS: Image quality: Excellent. Bones and teeth: Orbital mosqueda are intact. Sinus mosqueda show no fracture or deformity. Nasal bones and septum are intact. Visualized portions of the mandible demonstrate no fractures or subluxation. Zygomatic arches are intact. Pterygoid plates are intact. Visualized portions of the skull base and auditory canals are intact. Sinuses: Paranasal sinuses are aerated, without fluid levels, mucosal thickening, or mucoceles. Mastoid air cells are aerated. Soft tissues: No edema, masses, or fluid collections. No enlarged lymph nodes. No soft tissue lacerations or debris. Right frontal scalp hematoma. Vascular: Visualized vascular structures appear normal in the absence of contrast. Bony vascular foramina and canals are intact. IMPRESSION: Right frontal scalp hematoma. No visualized osseous fractures. Dictated by: Kenyatta Mejia M.D. on 01/23/2023 at 13:53 Approved by: Kenyatta Mejia M.D. on 01/23/2023 at 13:55
--- NOTE | 2023-01-23 13:24 | DI.CT.S_ITS ---
PROCEDURE: CT HEAD/BRAIN WO CON INDICATIONS: fall TECHNIQUE: Noncontrast 4.5 mm thick angled axial sections acquired from the foramen magnum to the vertex, with coronal and sagittal reformats. For radiation dose reduction, the following was used: automated exposure control, adjustment of mA and/or kV according to patient size. COMPARISON: [facility], CT, CT FACIAL BONES WO CON, 01/23/2023, 13:37. [facility], CT, CT HEAD/BRAIN WO CON, 07/02/2021, 21:47. FINDINGS: Image quality: Excellent. CSF spaces: Basal cisterns are patent. No extra-axial fluid collections. The ventricles are symmetric in size and shape. Brain: No intracranial bleeds or masses. There is cerebral volume loss for age, with resultant ventricular and sulcal prominence. There are periventricular and deep white matter chronic small vessel ischemic changes. There is intracranial internal carotid artery atherosclerosis. Low-attenuation is present in the anterior frontal lobes bilaterally, left greater than right unchanged likely related to prior trauma or potentially infection/infarction. Rounded focus of low attenuation adjacent to the left frontal horn is unchanged. Skull and face: Calvarium and visualized facial bones appear intact, without suspicious lesions. Right frontal scalp hematoma. Sinuses: Visualized sinuses and mastoids are clear. IMPRESSION: 1. No acute intracranial process. Right frontal scalp hematoma. 2. Moderate to severe atrophy and chronic microvascular ischemic changes. Dictated by: Kenyatta Mejia M.D. on 01/23/2023 at 13:49 Approved by: Kenyatta Mejia M.D. on 01/23/2023 at 13:53
[2023-01-23 15:51] LABS: Add Manual Diff / Slide Review NO; Basophils Absolute Auto 100 /uL (0-100); Basophils Percent Auto 0.5 % (0-2); Eosinophils Absolute Auto 100 /uL (0-450); Eosinophils Percent Auto 0.6 % (2-4); Hematocrit 44.6 % (41-53); Hemoglobin 15.2 g/dL (13.5-17.5); Lymphocytes Absolute Auto 3600 /uL (1100-4500); Mean Corpuscular Hemoglobin 30.1 PG (26-34); Mean Corpuscular Volume 88.5 fL (80-100); Monocytes Absolute Auto 600 /uL (0-900); Monocytes Percent Auto 5.6 % (3-14); Neutrophils Absolute Auto 6000 /uL (1500-7000); Neutrophils Percent Auto 58.3 % (50-75); Platelet Count 143 X10^3/uL (150-400); Red Blood Cell Count 5.04 X10^6/uL (4.5-5.9); Red Cell Distribution Width 15.5 % (11.6-14.8); White Blood Cell Count 10.3 X10^3/uL (4.5-11.0)
[2023-01-23 16:02] LABS: Alanine Aminotransferase 54 IU/L (<50); Albumin Globulin Ratio 1.3 (1.0-2.8); Alkaline Phosphatase 116 U/L (38-126); Aspartate Aminotransferase 60 IU/L (17-59); Bilirubin Total 1.3 mg/dL (0.2-1.3); Blood Urea Nitrogen 24 mg/dL (9-20); Calcium 11.6 mg/dL (8.4-10.2); Carbon Dioxide 25 mmol/L (22-32); Chloride 108 mmol/L (98-107); Creatine Kinase 730 U/L (55-170); Estimated Glomerular Filt Rate > 60 mL/min (>60); Globulin 3.1 g/dL (1.7-4.1); Glucose 100 mg/dL (80-110); HEMOLYSIS < 15 (0-50); Potassium 4.2 mmol/L (3.4-5.1); Sodium 139 mmol/L (137-145); Total Protein 7.1 g/dL (6.3-8.2)
--- NOTE | 2023-01-23 18:31 | ED_ITS ---
HPI - Fall General Chief Complaint: Fall Stated Complaint: fallen multiple times today, hit head Time Seen by Provider: 01/23/23 15:15 Source: patient and family Mode of arrival: Wheelchair Limitations: other (Dementia) History of Present Illness HPI Narrative: Patient is an 87-year-old male. He is here with his daughter. He does have a history of dementia. The patient lives at home with his . According to the patient's daughter he is fallen multiple times today. Unsure the exact circumstances these falls. He does have a contusion on his right forehead. He is not on blood thinners. He does not appear to have any extremity complaints. There was no reports of any loss of consciousness. He is fallen 3 times today. Related Data Home Medications Medication Instructions Recorded Confirmed aspirin 81 mg tablet,delayed 81 mg PO DAILY ##0 08/26/17 07/02/21 release donepezil 5 mg tablet 5 mg PO BEDTIME 07/02/21 07/02/21 escitalopram oxalate 10 mg tablet 10 mg PO DAILY 07/02/21 07/02/21 mirtazapine 15 mg tablet 7.5 mg PO BEDTIME 07/02/21 07/02/21 rosuvastatin 20 mg tablet 20 mg PO BEDTIME 07/02/21 07/02/21 Allergies Allergy/AdvReac Type Severity Reaction Status Date / Time ranitidine [RANITIDINE] Allergy Severe reaction Verified 01/23/23 13:17 not known. reported from Primary MD Review of Systems Review of Systems Narrative: Provided by daughter Constitutional Constitutional: Reports system reviewed and no additional complaints, except as documented Musculoskeletal Comments: No reports of extremity complaints Integumentary/Breasts Skin/Breast: Reports system reviewed and no additional complaints, except as documented Patient History Medical History COVID-19 Hyperlipidemia No significant medical problems Prostate cancer Surgical History H/O hemorrhoidectomy History of herniorrhaphy Hx of cholecystectomy Social History household members: spouse, family and children Smoking Status: Never smoker Smoking Status: Never smoker alcohol intake frequency: holidays/special occasions only Substance Use Type: does not use Exam Initial Vital Signs Initial Vital Signs: Vital Signs Temperature 97.2 F L 01/23/23 13:17 Pulse Rate 81 01/23/23 13:17 Respiratory Rate 15 01/23/23 13:17 Blood Pressure 109/67 01/23/23 13:17 Pulse Oximetry 93 01/23/23 13:17 Oxygen Delivery Method Room Air 01/23/23 13:17 HENW[place] Head: contusion Face and sinus: normal facial exam Mouth: oral mucosae normal Resp Effort & Inspection: normal respiratory effort Auscultation: clear to auscultation bilaterally Cardio Rate: regular rate Rhythm: regular rhythm GI Inspection: normal to inspection Skin Other: Contusion of the right forehead. Extrem Other: No apparent complaints with movement of the upper extremities. Pelvis is stable. No apparent discomfort with movement of lower extremities Course Orders Ordered: ED Orders 01/23/23 18:32 Consult to GOLF MANAGER - [employer] Stat 01/23/23 19:02 Urine Microscopic Stat 01/23/23 19:24 Consult to Home Health Stat Vital Signs Vital signs: Vital Signs - 8 hr 01/23/23 18:30 01/23/23 17:30 01/23/23 18:41 Pulse Rate 63 66 68 Respiratory Rate 14 14 14 Blood Pressure 148/88 H 123/83 128/84 Pulse Oximetry 96 94 94 Oxygen Delivery Method Room Air Room Air Room Air 01/23/23 19:31 01/23/23 20:38 Pulse Rate 70 66 Respiratory Rate 18 16 Blood Pressure 142/86 H 103/63 Pulse Oximetry 96 93 Oxygen Delivery Method Room Air Room Air MDM - Fall Lab Data Attestation: I reviewed the patient's lab results. 01/23/23 15:30 01/23/23 15:30 Labs: Lab Results 01/23/23 01/23/23 01/23/23 Range/Units 15:30 15:30 19:02 WBC 10.3 (4.5-11.0) X10^3/uL RBC 5.04 (4.5-5.9) X10^6/uL Hgb 15.2 (13.5-17.5) g/dL Hct 44.6 (41-53) % MCV 88.5 (80-100) fL MCH 30.1 (26-34) PG MCHC 34.0 (30-36) % RDW 15.5 H (11.6-14.8) % Plt Count 143 L (150-400) X10^3/uL Neut % (Auto) 58.3 (50-75) % Lymph % (Auto) 35.0 (25-40) % [place] % (Auto) 5.6 (3-14) % Eos % (Auto) 0.6 L (2-4) % Baso % (Auto) 0.5 (0-2) % Neut # (Auto) 6000 (0645-2885) /uL Lymph # (Auto) 3600 (1904-0836) /uL [place] # (Auto) 600 (0-900) /uL Eos # (Auto) 100 (0-450) /uL Baso # (Auto) 100 (0-100) /uL Sodium 139 (137-145) mmol/L Potassium 4.2 (3.4-5.1) mmol/L Chloride 108 H (98-107) mmol/L Carbon Dioxide 25 (22-32) mmol/L BUN 24 H (9-20) mg/dL Creatinine 1.09 (0.66-1.25) mg/dL Estimated GFR > 60 (>60) mL/min BUN/Creatinine Ratio 22.0 (6-22) Glucose 100 (80-110) mg/dL Calcium 11.6 H (8.4-10.2) mg/dL Total Bilirubin 1.3 (0.2-1.3) mg/dL AST 60 H (17-59) IU/L ALT 54 H (<50) IU/L Alkaline Phosphatase 116 (38-126) U/L Total Creatine Kinase 730 H (55-170) U/L Troponin I 0.100 H (0.01-0.034) ng/mL Total Protein 7.1 (6.3-8.2) g/dL Albumin 4.0 (3.5-5.0) g/dL Globulin 3.1 (1.7-4.1) g/dL Albumin/Globulin Ratio 1.3 (1.0-2.8) Urine RBC 0-1/hpf (0-5/HPF) Urine WBC 0-1/hpf (0-5/HPF) Ur Squamous Epith Cells 0-1 /hpf (0-5/HPF) Calcium Oxalate Crystal Few H Urine Bacteria None seen (None) Hyaline Casts 1-5/lpf (None) Urine Mucus 1+ H (Negative) Ur Culture Indicated? Cult not indicated Urine Dip Bedside Urine Glucose Negative Bedside Urine Bilirubin - Negative Bedside Urine Ketone +/- 5 Urine Specific [place] 1.030 Bedside Urine Occult Blood - Negative Bedside Urine pH 5.5 Bedside Urine Protein +/- 15 Bedside Urine Urobilinogen - Negative Bedside Urine Nitrite - Negative Bedside Urine Leukocytes - Negative Esterase Imaging Data CT - cervical spine: Radiologist's Impression: PROCEDURE:? CT CERVICAL SPINE WO CON ? INDICATIONS:? fall ? TECHNIQUE:? Noncontrast 3 mm thick sections acquired from the skull base to the T4 level.? Sagittal and coronal reformats were then constructed.? For radiation dose reduction, the following was used:? automated exposure control, adjustment of mA and/or kV according to patient size.? ? COMPARISON:? None. ? FINDINGS:? Image quality:? Excellent.? ? Bones:? No fractures or dislocations.? Visualized superior ribs are intact.? Pro minent multilevel degenerative changes are present. ? Soft tissues:? Prevertebral soft tissues are normal in thickness.? No paravertebral hematomas.? No apical pneumothoraces.? ? ? IMPRESSION:? Multilevel degenerative changes without visualized fracture. CT face: Radiologist's Impression: PROCEDURE:? CT FACIAL BONES WO CON ? INDICATIONS:? fall ? TECHNIQUE:? Noncontrast 2.5 mm thick axial images acquired from the mandible through the frontal sinuses, with coronal and sagittal reformatting.? For radiation dose reduction, the following was used:? automated exposure control, adjustment of mA and/or kV according to patient size.? ? COMPARISON:? [facility], CT, CT HEAD/BRAIN WO CON, 01/23/2023, 13:37.? [facility], CT, CT CERVICAL SPINE WO CON, 01/23/2023, 13:37. ? FINDINGS:? Image quality:? Excellent.? ? Bones and teeth:? Orbital mosqueda are intact.? Sinus mosqueda show no fracture or deformity.? Nasal bones and septum are intact.? Visualized portions of the mandible demonstrate no fractures or subluxation.? Zygomatic arches are intact.? Pterygoid plates are intact.? Visualized portions of the skull base and auditory canals are intact.? ? Sinuses:? Paranasal sinuses are aerated, without fluid levels, mucosal thickenin g, or mucoceles.? Mastoid air cells are aerated.? ? Soft tissues:? No edema, masses, or fluid collections.? No enlarged lymph nodes.? No soft tissue lacerations or debris.? Right frontal scalp hematoma. ? Vascular:? Visualized vascular structures appear normal in the absence of contrast.? Bony vascular foramina and canals are intact.? ? IMPRESSION:? ? Right frontal scalp hematoma. ? No visualized osseous fracture CT scan - head: Radiologist's Impression: PROCEDURE:? CT HEAD/BRAIN WO CON ? INDICATIONS:? fall ? TECHNIQUE:? Noncontrast 4.5 mm thick angled axial sections acquired from the foramen magnum to the vertex, with coronal and sagittal reformats.? For radiation dose reduction, the following was used:? automated exposure control, adjustment of mA and/or kV according to patient size.? ? COMPARISON:? [facility], CT, CT FACIAL BONES WO CON, 01/23/2023, 13:37.? [facility], CT, CT HEAD/BRAIN WO CON, 07/02/2021, 21:47. ? FINDINGS:? Image quality:? Excellent.? ? CSF spaces:? Basal cisterns are patent.? No extra-axial fluid collections.? The ventricles are symmetric in size and shape.? ? Brain:? No intracranial bleeds or masses.? There is cerebral volume loss for age, with resultant ventricular and sulcal prominence.? There are periventricular and deep white matter chronic small vessel ischemic changes.? There is intracranial internal carotid artery atherosclerosis.? Low-attenuation is present in the anterior frontal lobes bilaterally, left greater than right unchanged likely related to prior trauma or potentially infection/infarction.? Rounded focus of low attenuation adjacent to the left frontal horn is unchanged.? ? Skull and face:? Calvarium and visualized facial bones appear intact, without suspicious lesions.? Right frontal scalp hematoma. ? Sinuses:? Visualized sinuses and mastoids are clear.? ? IMPRESSION:? ? 1. No acute intracranial process.? Right frontal scalp hematoma. ? 2. Moderate to severe atrophy and chronic microvascular ischemic changes. ECG Data Attestation: I personally reviewed and interpreted this ECG as follows: Interpretation: Normal sinus rhythm Ventricular rate is 78 Left axis deviation Right bundle-branch block Nonspecific ST T wave changes MDM Narrative Medical decision making narrative: Baseline neurologic status per daughter who is at bedside. CT scans show no acute pathology. He does not appear to have any extremity injuries. The contusion on his forehead needs no specific intervention here in the ER. Patient was seen by social work. Apparently they have had consult for home health in the past but they have not followed through with this. There was no indication for admission to the hospital. No indication for any infectious etiology. Will discharge patient home with daughter. Discharge Plan Departure Patient Disposition: Home Clinical Impression: Forehead contusion Instructions: How to Prevent Falls Activity Restrictions/Additional Instructions: I do recommend that he continue to take all of his medications as directed. It is important that the family has a discussion about the next steps to include help at home for Geovanni and his . Return to the emergency department for new symptoms Prescriptions: No Action aspirin 81 MG tablet,delayed release (DR/EC) 81 mg PO DAILY Qty: 0 donepezil 5 mg tablet 5 mg PO BEDTIME Patient Comments: TAKE 1 TABLET BY MOUTH NIGHTLY mirtazapine 15 mg tablet 7.5 mg PO BEDTIME Patient Comments: TAKE 1/2 TABLET BY MOUTH NIGHTLY AT BEDTIME escitalopram oxalate 10 mg tablet 10 mg PO DAILY Patient Comments: TAKE ONE TABLET BY MOUTH ONE TIME DAILY rosuvastatin 20 mg tablet 20 mg PO BEDTIME Patient Comments: TAKE ONE TABLET BY MOUTH ONE TIME DAILY Referrals: Campos Quintana MD [Primary Care Provider] - Stand Alone Forms: Patient Portal/API
--- NOTE | 2023-01-23 19:31 | CM.SWNOTE ---
ED GOVERNMENT CLERK Note GOVERNMENT CLERK receives consult from ED provider due to concern for patient's recent GLFs and Dementia. Patient's PCP is Dr. Quintana, patient has Medicare and [employer] insurance. Patient has hx of NSTEMI, Dementia, GLFs and hx of Prostate cancer. GOVERNMENT CLERK enters room to meet with patient, patient is A/O to self and person, per daughter patient stated that it was 1937. Daughter reports that patient resides in [place] with spouse. It is reported that grandson is voluntary medic/honing machine try out setter and resides next door. Daughter resides in [place] and visits when she can. It is reported that up until a week ago patient was independent with ambulating but patient has had increased confusion and fell multiple times today. Daughter reports that patient has new DME that arrived recently: FWW, canes, wheelchair, and shower chair. It is reported that patient was reluctant to use FWW but used it a bit today. Daughter endorses concern for patient's lack of appetite, it is reported that patient does not drink much so he will not have to use the bathroom. It is reported that spouse assists with cooking, bathes patient, provides medication, and dresses patient. Daughter endorses that spouse is Occitan and takes pride in independence in caring for patient. It is reported that last month PCP set up referral for patient for HH with [facility] but patient and spouse were not comfortable with people in home and thought that there was a cost to service. GOVERNMENT CLERK explains that HH is a service that goes through insurance and is generally covered by insurance. Daughter is in agreement to try again with [facility]. GOVERNMENT CLERK calls [facility] and leaves , GOVERNMENT CLERK to fax order, signed f2f and clinicals. In regards to goals of care, patient's spouse is adamant that the goal is for patient to stay at home or in family home. Daughter and grandson are discussing FMLA to care for patient. It is reported that patient and spouse are not interested in paying for caregiver. GOVERNMENT CLERK provides daughter with information about FMLA, senior resource guide and [facility] brochure. Plan: Patient to d/c to home upon medical clearance with daughter, daughter to stay with patient tonight, [facility] to f/u with patient and daughter, family to look into FMLA and higher level of care at home. Penelope Martinez, ACCOUNT SERVICES SPECIALIST
[2023-01-23 20:28] LABS: Bacteria Urine None Seen; Calcium Oxalate Crystals Urine Few; Culture Indicated Urine Cult Not Indicated; Hyaline Casts Urine 1-5/LPF; Mucus Urine 1+ (Negative); RBC Urine 0-1/HPF (0-5/HPF); Squamous Epithelial Cell Urine 0-1 /HPF (0-5/HPF); WBC Urine 0-1/HPF (0-5/HPF)
== END 2023-01-23 20:44 | disposition home or self-care (01) ==
PROVIDERS: Emergency Medicine; Emergency Provider Emergency Medicine; Family Provider Family Medicine; PCP Internal Medicine
DX: S00.83XA Contusion of other part of head, initial encounter (principal); R29.6 Repeated falls; R07.9 Chest pain, unspecified; Z79.899 Other long term (current) drug therapy
CPT/HCPCS: 36415; 70450; 70486; 72125; 80053; 81003; 81015; 82550; 84484; 85025; 93005; 99282; 99284

== ENCOUNTER 2023-09-24 17:22 | Emergency (ER) | payer MEDICARE, BC, SELFPAY ==
[2021-07-03 16:16] VITALS: BMI 29.6
--- NOTE | 2023-09-24 17:42 | DI.RAD.S_ITS ---
PROCEDURE: XR CHEST 1V INDICATIONS: chest pain TECHNIQUE: One view of the chest was acquired. COMPARISON: [facility], CR, XR CHEST 1V, 07/02/2021, 21:36. [facility], CR, XR CHEST 1V, 07/02/2021, 14:12. FINDINGS: Surgical changes and devices: None. Lungs and pleura: [id number] lower lung opacities. Very low lung volumes. Mediastinum: Heart size is likely enlarged, although not well evaluated with very low lung volumes. Cardiomediastinal contours overall unchanged. Bones and chest wall: Degenerative changes. IMPRESSION: Limited single view radiograph with very low lung volumes. [id number] lower lung opacities may represent infectious/inflammatory airspace disease versus atelectasis. Consider future imaging surveillance to assess for resolution. Dictated by: Tl Cunha M.D. on 09/24/2023 at 18:43 Approved by: Tl Cunha M.D. on 09/24/2023 at 18:44
--- NOTE | 2023-09-24 17:42 | DI.US.S_ITS ---
PROCEDURE: US PERIPH VENOUS LOW EXTREM LT INDICATIONS: leg pain TECHNIQUE: Real-time imaging, as well as color and pulse Doppler interrogation, were performed of the lower extremity deep veins from the inguinal ligament to the popliteal fossa, with documentation of the visualized calf veins. COMPARISON: None. FINDINGS: The common femoral, femoral, popliteal, and the visualized calf veins are normally compressible, and free of intraluminal thrombus. Color and pulse Doppler demonstrate normal phasic intraluminal flow. There is normal augmentation response to distal compression maneuver. Subcutaneous soft tissue edema of the foot without organized fluid collection. IMPRESSION: No findings of lower extremity deep venous thrombosis. Dictated by: David Waterman M.D. on 09/24/2023 at 21:33 Approved by: David Waterman M.D. on 09/24/2023 at 21:35
[2023-09-24 17:43] VITALS: BP 150/95; PULSE 74; RESP 22; TEMP 36.5; O2SAT 94; BMI 34.2
--- NOTE | 2023-09-24 18:06 | ED.SOB ---
HPI - SOB/Dyspnea General Chief Complaint: Shortness of Breath/Dyspnea Stated Complaint: SOB, leg swelling Time Seen by Provider: 09/24/23 18:06 Source: patient Mode of arrival: Ambulatory History of Present Illness HPI Narrative: 87-year-old male with history of Alzheimer's dementia presents by private vehicle from home for 3 weeks of gradually worsening shortness of breath and leg swelling. Most history obtained from daughter Latoya at bedside. Daughter states that patient's legs have gotten so puffy that he can barely put his shoes on and his legs seem tight and tense. He has no diagnosis of congestive heart failure and does not take any diuretics. Patient currently denies complaints, he was pleasantly confused Related Data Home Medications Medication Instructions Recorded Confirmed aspirin 81 mg tablet,delayed 81 mg PO DAILY ##0 08/26/17 07/02/21 release donepezil 5 mg tablet 5 mg PO BEDTIME 07/02/21 07/02/21 escitalopram oxalate 10 mg tablet 10 mg PO DAILY 07/02/21 07/02/21 mirtazapine 15 mg tablet 7.5 mg PO BEDTIME 07/02/21 07/02/21 rosuvastatin 20 mg tablet 20 mg PO BEDTIME 07/02/21 07/02/21 Previous Rx's Medication Instructions Recorded furosemide 20 mg tablet 20 mg PO DAILY #30 tabs 09/24/23 nystatin 100,000 unit/gram topical 1 applic topical BID #60 grams 09/24/23 powder Allergies Allergy/AdvReac Type Severity Reaction Status Date / Time ranitidine [RANITIDINE] Allergy Severe reaction Verified 01/23/23 13:17 not known. reported from Primary MD Review of Systems Review of Systems Narrative: see HPI Patient History Medical History COVID-19 Prostate cancer Hyperlipidemia No significant medical problems Surgical History History of herniorrhaphy H/O hemorrhoidectomy Hx of cholecystectomy Social History household members: spouse, family and children Smoking Status: Never smoker Smoking Status: Never smoker alcohol intake frequency: holidays/special occasions only Substance Use Type: does not use Exam Initial Vital Signs Initial Vital Signs: Vital Signs Temperature 97.7 F 09/24/23 17:43 Pulse Rate 74 09/24/23 17:43 Respiratory Rate 22 09/24/23 17:43 Blood Pressure 150/95 H 09/24/23 17:43 Pulse Oximetry 94 09/24/23 17:43 Oxygen Delivery Method Room Air 09/24/23 17:43 Const: Awake, alert, appears chronically unwell, nontoxic Cardiac: regular rate, regular rhythm RESP: Mild increased work of breathing, inspiratory crackles, trace expiratory wheeze upper lung ha GI: Soft, nontender, minimal distention without fluid wave MSK: 2+ pitting edema to thighs Skin: Warm, Dry, intact, no rashes Neuro: AO x2, CN II-XII grossly intact, moves all extremities Course Orders Ordered: Discontinued Medications Aspirin (Aspirin 81 Mg Chew Tab) 324 mg PO NOW ONE Stop: 09/24/23 17:42 Last Admin: 09/24/23 18:28 Dose: 324 mg Documented By: KELLY Furosemide (Furosemide 40 Mg/4 Ml Vial) 40 mg IV NOW ONE Stop: 09/24/23 18:35 Last Admin: 09/24/23 18:43 Dose: 40 mg Documented By: DREW Nystatin (Nystatin Cream 30 Gm) 1 applic TOP NOW ONE Stop: 09/24/23 20:57 Vital Signs Vital signs: Vital Signs - 8 hr 09/24/23 21:20 Pulse Rate 70 Respiratory Rate 16 Blood Pressure 127/77 Pulse Oximetry 92 Oxygen Delivery Method Room Air MDM - SOB/Dyspnea Differential Diagnosis Differential diagnosis: Likely acute exacerbation of chronic obstructive airways disease, congestive heart failure and community acquired pneumonia Lab Data 09/24/23 17:50 09/24/23 17:50 Labs: Lab Results 09/24/23 Range/Units 17:50 WBC 8.7 (4.5-11.0) X10^3/uL RBC 4.83 (4.5-5.9) X10^6/uL Hgb 14.4 (13.5-17.5) g/dL Hct 43.8 (41-53) % MCV 90.7 (80-100) fL MCH 29.8 (26-34) PG MCHC 32.8 (30-36) % RDW 15.3 H (11.6-14.8) % Plt Count 164 (150-400) X10^3/uL Neut % (Auto) 41.7 L (50-75) % Lymph % (Auto) 47.5 H (25-40) % [place] % (Auto) 6.9 (3-14) % Eos % (Auto) 3.5 (2-4) % Baso % (Auto) 0.4 (0-2) % Neut # (Auto) 3600 (8807-1319) /uL Lymph # (Auto) 4100 (9074-6811) /uL [place] # (Auto) 600 (0-900) /uL Eos # (Auto) 300 (0-450) /uL Baso # (Auto) 0 (0-100) /uL PT 11.4 (9.4-12.5) SECONDS INR 1.0 (0.9-1.3) APTT 33 (25.1-36.5) SECONDS Sodium 141 (137-145) mmol/L Potassium 4.1 (3.4-5.1) mmol/L Chloride 109 H (98-107) mmol/L Carbon Dioxide 26 (22-32) mmol/L BUN 27 H (9-20) mg/dL Creatinine 1.12 (0.66-1.25) mg/dL Estimated GFR > 60 (>60) mL/min BUN/Creatinine Ratio 24.1 H (6-22) Glucose 97 (80-110) mg/dL Calcium 9.5 (8.4-10.2) mg/dL Magnesium 1.9 (1.6-2.3) mg/dL Total Bilirubin 0.8 (0.2-1.3) mg/dL AST 33 (17-59) IU/L ALT 32 (<50) IU/L Alkaline Phosphatase 108 (38-126) U/L Total Creatine Kinase 102 (55-170) U/L Troponin I 0.017 (0.01-0.034) ng/mL NT-Pro-B Natriuret Pep 556 H (<450) pg/mL Total Protein 7.0 (6.3-8.2) g/dL Albumin 4.4 (3.5-5.0) g/dL Globulin 2.6 (1.7-4.1) g/dL Albumin/Globulin Ratio 1.7 (1.0-2.8) Lipase 107 (23-300) U/L Imaging Data Chest x-ray: Radiologist's Impression: PROCEDURE: XR CHEST 1V INDICATIONS: chest pain TECHNIQUE: One view of the chest was acquired. COMPARISON: [facility], CR, XR CHEST 1V, 07/02/2021, 21:36. [facility], CR, XR CHEST 1V, 07/02/2021, 14:12. FINDINGS: Surgical changes and devices: None. Lungs and pleura: [id number] lower lung opacities. Very low lung volumes. Mediastinum: Heart size is likely enlarged, although not well evaluated with very low lung volumes. Cardiomediastinal contours overall unchanged. Bones and chest wall: Degenerative changes. IMPRESSION: Limited single view radiograph with very low lung volumes. [id number] lower lung opacities may represent infectious/inflammatory airspace disease versus atelectasis. Consider future imaging surveillance to assess for resolution. Dictated by: Tl Cunha M.D. on 09/24/2023 at 18:43 Approved by: Tl Cunha M.D. on 09/24/2023 at 18:44 US - DVT: Radiologist's Impression: PROCEDURE: US PERIPH VENOUS LOW EXTREM LT INDICATIONS: leg pain TECHNIQUE: Real-time imaging, as well as color and pulse Doppler interrogation, were performed of the lower extremity deep veins from the inguinal ligament to the popliteal fossa, with documentation of the visualized calf veins. COMPARISON: None. FINDINGS: The common femoral, femoral, popliteal, and the visualized calf veins are normally compressible, and free of intraluminal thrombus. Color and pulse Doppler demonstrate normal phasic intraluminal flow. There is normal augmentation response to distal compression maneuver. Subcutaneous soft tissue edema of the foot without organized fluid collection. IMPRESSION: No findings of lower extremity deep venous thrombosis. Dictated by: David Waterman M.D. on 09/24/2023 at 21:33 Approved by: David Waterman M.D. on 09/24/2023 at 21:35 MDM Narrative Medical decision making narrative: Progressive dyspnea and leg swelling. Patient's presentation and exam are most consistent with congestive heart failure, however patient does not have a previous diagnosis of this condition. Saturating well on room air, no acute distress on exam. Laboratory work is reviewed, hemoglobin 14.4, WBC count 8.7, platelets 164, sodium 141, potassium 4.1, creatinine 1.12 and GFR greater than 60, magnesium 1.9, troponin 0.017, BNP 556. Chest x-ray limited due to low lung volumes, however shows cardiomegaly, concerning for volume overload. Patient given a single dose of IV Lasix with good urine output. Ultrasound of the lower extremity negative for DVT. Daughter counseled of likely diagnosis of congestive heart failure at bedside. Recommended initiation of diuretics and follow up with Cardiology. Patient previously saw a temporary staff accountant in [place]. Daughter states that they will follow up with the patient's primary care physician. Was also recommended that the patient have his weight monitored for signs of volume overload. Discharge Plan Departure Patient Disposition: Home Clinical Impression: Cardiac volume overload Instructions: DI for Heart Failure Activity Restrictions/Additional Instructions: The laboratory work and chest x-ray are indicative of congestive heart failure. To help decrease fluid a water pill has been sent to your pharmacy. Monitor your weight daily and follow up with Cardiology. Prescriptions: New furosemide 20 mg tablet 20 mg PO DAILY Qty: 30 0RF Rx Instructions: may take an extra tablet if you notice weight gain nystatin 100,000 unit/gram powder 1 applic topical BID Qty: 60 0RF No Action aspirin 81 MG tablet,delayed release (DR/EC) 81 mg PO DAILY Qty: 0 donepezil 5 mg tablet 5 mg PO BEDTIME Patient Comments: TAKE 1 TABLET BY MOUTH NIGHTLY mirtazapine 15 mg tablet 7.5 mg PO BEDTIME Patient Comments: TAKE 1/2 TABLET BY MOUTH NIGHTLY AT BEDTIME escitalopram oxalate 10 mg tablet 10 mg PO DAILY Patient Comments: TAKE ONE TABLET BY MOUTH ONE TIME DAILY rosuvastatin 20 mg tablet 20 mg PO BEDTIME Patient Comments: TAKE ONE TABLET BY MOUTH ONE TIME DAILY Referrals: Campos Quintana MD [Primary Care Provider] - Stand Alone Forms: Patient Portal/API
[2023-09-24 18:21] LABS: Add Manual Diff / Slide Review NO; Basophils Absolute Auto 0 /uL (0-100); Basophils Percent Auto 0.4 % (0-2); Eosinophils Absolute Auto 300 /uL (0-450); Eosinophils Percent Auto 3.5 % (2-4); Hematocrit 43.8 % (41-53); Hemoglobin 14.4 g/dL (13.5-17.5); Lymphocytes Absolute Auto 4100 /uL (1100-4500); Lymphocytes Percent Auto 47.5 % (25-40); Mean Corpuscular HGB Conc 32.8 % (30-36); Mean Corpuscular Hemoglobin 29.8 PG (26-34); Mean Corpuscular Volume 90.7 fL (80-100); Monocytes Absolute Auto 600 /uL (0-900); Monocytes Percent Auto 6.9 % (3-14); Neutrophils Absolute Auto 3600 /uL (1500-7000); Neutrophils Percent Auto 41.7 % (50-75); Platelet Count 164 X10^3/uL (150-400); Red Blood Cell Count 4.83 X10^6/uL (4.5-5.9); Red Cell Distribution Width 15.3 % (11.6-14.8); White Blood Cell Count 8.7 X10^3/uL (4.5-11.0)
[2023-09-24 18:25] LABS: Prothrombin Time 11.4 SECONDS (9.4-12.5)
[2023-09-24 18:27] LABS: PTT Partial Thromboplastin Tim 33 SECONDS (25.1-36.5)
[2023-09-24] MEDS: ASPIRIN 81 MG CHEW TAB 324 MG PO (18:28)
[2023-09-24 18:29] LABS: Alanine Aminotransferase 32 IU/L (<50); Albumin 4.4 g/dL (3.5-5.0); Albumin Globulin Ratio 1.7 (1.0-2.8); Alkaline Phosphatase 108 U/L (38-126); Aspartate Aminotransferase 33 IU/L (17-59); BUN Creatinine Ratio 24.1 (6-22); Bilirubin Total 0.8 mg/dL (0.2-1.3); Blood Urea Nitrogen 27 mg/dL (9-20); Calcium 9.5 mg/dL (8.4-10.2); Carbon Dioxide 26 mmol/L (22-32); Chloride 109 mmol/L (98-107); Creatine Kinase 102 U/L (55-170); Estimated Glomerular Filt Rate > 60 mL/min (>60); Globulin 2.6 g/dL (1.7-4.1); Glucose 97 mg/dL (80-110); HEMOLYSIS < 15 (0-50); Lipase 107 U/L (23-300); Magnesium 1.9 mg/dL (1.6-2.3); Potassium 4.1 mmol/L (3.4-5.1); Sodium 141 mmol/L (137-145)
[2023-09-24 18:41] LABS: Troponin I 0.017 ng/mL (0.01-0.034)
[2023-09-24] MEDS: FUROSEMIDE 40 MG/4 ML VIAL IV (18:43)
[2023-09-24 19:37] LABS: NT-proBNP (BNP-Adult 18+) 556 pg/mL (<450)
[2023-09-24 21:20] VITALS: BP 127/77; PULSE 70; RESP 16; O2SAT 92
== END 2023-09-24 21:21 | disposition home or self-care (01) ==
PROVIDERS: Emergency Medicine; Emergency Provider Emergency Medicine; Family Provider Family Medicine; PCP Internal Medicine
DX: E87.79 Other fluid overload (principal); R03.0 Elevated blood-pressure reading, without diagnosis of hypertension
CPT/HCPCS: 36415; 71045; 80053; 82550; 83690; 83735; 83880; 84484; 85025; 85610; 85730; 93005; 93971; 96374; 99284; J1940

== ENCOUNTER 2023-09-29 18:10 | Inpatient (IN) | payer MEDICARE, BC, SELFPAY ==
[2021-07-03 16:16] VITALS: BMI 29.6
[2023-09-29] VITALS (11 sets, daily range): BP systolic 119–144; BP diastolic 74–89; PULSE 70–84; RESP 17–28; TEMP 36.4–36.6; O2SAT 93–96; BMI 45.2
[2023-09-29] MEDS: SODIUM CHLORIDE 0.9% FLUSH 10 ML IV ×3 (18:27→21:08)
--- NOTE | 2023-09-29 18:28 | ED_ITS ---
HPI - SOB/Dyspnea General Chief Complaint: Shortness of Breath/Dyspnea Stated Complaint: SOB/leg and foot swelling Time Seen by Provider: 09/29/23 18:27 Source: patient Mode of arrival: Ambulatory History of Present Illness HPI Narrative: Patient 87-year-old male history of Alzheimer's dementia, hyperlipidemia, prostate cancer presents today with increasing shortness of breath and lower leg swelling. Seen and evaluated here 09/24/23 for something similar he had left lower extremity ultrasound negative for DVT blood work at the [facility] of 556. He has no prior history of congestive heart failure given Lasix and to discharge home. Daughter states that he was doing okay and now Lasix does not seem to be working despite doubling it. He continues to have bilateral lower extremity edema worse on the left than the right. He has pretty significant exertional dyspnea but has not hypoxic. Denies any sort of chest pain. He has a nonproductive cough denies any fever or worsening confusion Related Data Home Medications Medication Instructions Recorded Confirmed aspirin 81 mg tablet,delayed 81 mg PO DAILY ##0 08/26/17 09/29/23 release donepezil 5 mg tablet 5 mg PO BEDTIME 07/02/21 09/29/23 escitalopram oxalate 10 mg tablet 10 mg PO DAILY 07/02/21 09/29/23 mirtazapine 15 mg tablet 7.5 mg PO BEDTIME 07/02/21 09/29/23 rosuvastatin 20 mg tablet 20 mg PO BEDTIME 07/02/21 09/29/23 Previous Rx's Medication Instructions Recorded furosemide 20 mg tablet 20 mg PO DAILY #30 tabs 09/24/23 nystatin 100,000 unit/gram topical 1 applic topical BID #60 grams 09/24/23 powder Allergies Allergy/AdvReac Type Severity Reaction Status Date / Time ranitidine [RANITIDINE] Allergy Severe reaction Verified 09/29/23 18:28 not known. reported from Primary MD Patient History Medical History COVID-19 Prostate cancer Hyperlipidemia No significant medical problems Surgical History History of herniorrhaphy H/O hemorrhoidectomy Hx of cholecystectomy Social History household members: spouse Smoking Status: Never smoker alcohol intake: never Smoking Status: Never smoker alcohol intake frequency: holidays/special occasions only Substance Use Type: does not use Exam Initial Vital Signs Initial Vital Signs: Vital Signs Temperature 97.9 F 09/29/23 18:23 Pulse Rate 83 09/29/23 18:23 Respiratory Rate 22 09/29/23 18:23 Blood Pressure 143/82 H 09/29/23 18:23 Pulse Oximetry 95 09/29/23 18:23 Oxygen Delivery Method Room Air 09/29/23 18:23 GENERAL: Alert pleasant hard of hearing 87-year-old male and in no acute distress. HEENT: Head atraumatic,EOMI, pupils reactive, face symmetric, moist mucous membranes CARDIOVASCULAR: Regular rate and rhythm without murmurs, rubs or gallops. RESPIRATORY: Breath sounds equal bilaterally, no wheezes rales or rhonchi. ABDOMEN: Soft, nontender. Normoactive bowel sounds all 4 quadrants. No guarding or rebound. EXTREMITIES: Normal range of motion, no clubbing. +2 pitting edema left side is greater than right some left lower extremity mild erythema as well. Neurovascularly intact NEUROLOGICAL: Alert and oriented x2.Normal gait and speech. Cranial nerves II through XII grossly intact. SKIN: Warm, dry, no laceration, no petechiae, no rashes or lesions. Course Orders Ordered: ED Orders 09/29/23 18:27 Complete Blood Count AUTO DIFF Stat Comprehensive Metabolic Panel Stat Lactate (Lactic Acid) Stat NT-proBNP (BNP-Adult 18+) Stat PTT Partial Thromboplastin Tono Stat Prothrombin Time INR Stat Troponin & CK Cardiac Panel Stat 09/29/23 18:33 XR chest 1V Stat EKG-12 Lead Stat Measure peak expiratory flow ONCE RT Consult Eval and Treat NOW 09/29/23 18:41 US periph venous low extrem bi Stat 09/29/23 20:56 CT angio chest PE protocol Stat Acetaminophen (Acetaminophen 325 Mg Tablet) 650 mg PO Q6H PRN PRN Reason: Fever/Mild Pain (1-3) Aspirin (Aspirin Ec 81 Mg Tablet) 81 mg PO DAILY BRAD Atorvastatin Calcium (Atorvastatin 20 Mg Tablet) 40 mg PO BEDTIME BRAD Donepezil HCl (Donepezil 5 Mg Tablet) 5 mg PO BEDTIME BRAD Enoxaparin Sodium (Enoxaparin 30 Mg/0.3 Ml Syringe) 30 mg SUBCUT DAILY [facility] Escitalopram Oxalate (Escitalopram 10 Mg Tablet) 10 mg PO DAILY BRAD Furosemide (Furosemide 20 Mg/2 Ml Vial) 40 mg IV BID BRAD Mirtazapine (Mirtazapine 15 Mg Tablet) 7.5 mg PO BEDTIME BRAD Naloxone HCl (Naloxone 0.4 Mg/Ml Vial) 0.2 mg IV Q2MIN PRN PRN Reason: Opiate Reversal Sennosides (Sennosides 8.6 Mg Tablet) 17.2 mg PO BEDTIME PRN PRN Reason: constipation Sodium Chloride (Sodium Chloride 0.9% Flush) 10 ml IV BID BRAD Last Admin: 09/29/23 21:08 Dose: 10 ml Documented By: Sodium Chloride (Sodium Chloride 0.9% Flush) 10 ml IV PRN PRN PRN Reason: Flush Last Admin: 09/29/23 18:52 Dose: 10 ml Documented By: Admin: 09/29/23 18:27 Dose: 10 ml Documented By: AJIT Discontinued Medications Furosemide (Furosemide 40 Mg/4 Ml Vial) 40 mg IV NOW ONE Stop: 09/29/23 18:42 Last Admin: 09/29/23 18:51 Dose: 40 mg Documented By: AJIT Vital Signs Vital signs: Vital Signs - 8 hr 09/29/23 18:23 09/29/23 18:47 09/29/23 19:00 Temperature 97.9 F Pulse Rate 83 83 84 Respiratory Rate 22 23 22 Blood Pressure 143/82 H Pulse Oximetry 95 95 95 Oxygen Delivery Method Room Air Room Air 09/29/23 19:00 09/29/23 19:30 09/29/23 19:30 Temperature Pulse Rate 83 Respiratory Rate 21 Blood Pressure 135/85 124/85 Pulse Oximetry 94 Oxygen Delivery Method 09/29/23 20:00 09/29/23 20:00 09/29/23 20:30 Temperature Pulse Rate 75 Respiratory Rate 24 Blood Pressure 136/86 119/76 Pulse Oximetry 93 Oxygen Delivery Method 09/29/23 20:30 09/29/23 21:00 09/29/23 21:00 Temperature Pulse Rate 74 75 Respiratory Rate 24 28 H Blood Pressure 126/79 Pulse Oximetry 93 95 Oxygen Delivery Method Room Air 09/29/23 21:30 09/29/23 21:30 Temperature Pulse Rate 77 Respiratory Rate 22 Blood Pressure 124/78 Pulse Oximetry 94 Oxygen Delivery Method MDM - SOB/Dyspnea Lab Data 09/29/23 18:27 09/29/23 18:27 Labs: Lab Results 09/29/23 09/29/23 Range/Units 18:27 20:23 WBC 9.6 (4.5-11.0) X10^3/uL RBC 4.83 (4.5-5.9) X10^6/uL Hgb 14.5 (13.5-17.5) g/dL Hct 43.8 (41-53) % MCV 90.7 (80-100) fL MCH 30.1 (26-34) PG MCHC 33.1 (30-36) % RDW 15.3 H (11.6-14.8) % Plt Count 176 (150-400) X10^3/uL Neut % (Auto) 41.8 L (50-75) % Lymph % (Auto) 49.1 H (25-40) % [place] % (Auto) 5.7 (3-14) % Eos % (Auto) 2.8 (2-4) % Baso % (Auto) 0.6 (0-2) % Neut # (Auto) 4000 (2650-3522) /uL Lymph # (Auto) 4700 H (3362-3116) /uL [place] # (Auto) 500 (0-900) /uL Eos # (Auto) 300 (0-450) /uL Baso # (Auto) 100 (0-100) /uL PT 11.7 (9.4-12.5) SECONDS INR 1.0 (0.9-1.3) APTT 34 (25.1-36.5) SECONDS Sodium 140 (137-145) mmol/L Potassium 3.9 (3.4-5.1) mmol/L Chloride 106 (98-107) mmol/L Carbon Dioxide 27 (22-32) mmol/L BUN 25 H (9-20) mg/dL Creatinine 1.34 H (0.66-1.25) mg/dL Estimated GFR 52 L (>60) mL/min BUN/Creatinine Ratio 18.7 (6-22) Glucose 100 (80-110) mg/dL Lactate 2.2 H 1.2 (0.7-2.1) mmol/L Calcium 9.2 (8.4-10.2) mg/dL Total Bilirubin 0.9 (0.2-1.3) mg/dL AST 36 (17-59) IU/L ALT 30 (<50) IU/L Alkaline Phosphatase 116 (38-126) U/L Total Creatine Kinase 133 (55-170) U/L Troponin I 0.020 (0.01-0.034) ng/mL NT-Pro-B Natriuret Pep 503 H (<450) pg/mL Total Protein 7.2 (6.3-8.2) g/dL Albumin 4.2 (3.5-5.0) g/dL Globulin 3.0 (1.7-4.1) g/dL Albumin/Globulin Ratio 1.4 (1.0-2.8) Imaging Data Chest x-ray: Radiologist's Impression: PROCEDURE: XR CHEST 1V INDICATIONS: Shortness of breath TECHNIQUE: One view of the chest was acquired. COMPARISON: [facility], , XR CHEST 1V, 07/02/2021, 21:36. [facility], , XR CHEST 1V, 09/24/2023, 18:07. FINDINGS: Surgical changes and devices: None. Lungs and pleura: On this semiupright portable chest examination, no large pneumothorax or large pleural effusions are seen. No focal infiltrates are seen. Mediastinum: The cardiac contours are within normal limits. The aorta demonstrates calcification and tortuosity. Bones and chest wall: Age-appropriate bony degenerative changes are seen. No suspicious bony lesions. Overlying soft tissues appear unremarkable. IMPRESSION: Portable chest within normal limits for age. Dictated by: Ramon Kidd M.D. on 09/29/2023 at 18:03 US - DVT: Radiologist's Impression: PROCEDURE: US PERIPH VENOUS LOW EXTREM BI INDICATIONS: swelling TECHNIQUE: Real-time imaging, as well as color and pulse Doppler interrogation, were performed of the deep veins of both legs from the inguinal ligament to the popliteal fossa, with documentation of the visualized calf veins. COMPARISON: None. FINDINGS: Right: The common femoral, femoral, popliteal, and the visualized calf veins are normally compressible, and free of intraluminal thrombus. Color and pulse Doppler demonstrate normal phasic intravascular flow. There is normal augmentation response to distal compression maneuver. Left: The common femoral, femoral, popliteal, and the visualized calf veins are normally compressible, and free of intraluminal thrombus. Color and pulse Doppler demonstrate normal phasic intravascular flow. There is normal augmentation response to distal compression maneuver. IMPRESSION: No DVT found. Dictated by: Luis Walker M.D. on 09/29/2023 at 20:05 Approved by: Luis Walker M.D. on 09/29/2023 at 20:05 CT scan - chest: Radiologist's Impression: PROCEDURE: CT ANGIO CHEST PE PROTOCOL INDICATIONS: hypoxia TECHNIQUE: After the administration of intravenous contrast, 2 mm thick sections acquired from the pulmonary apices to the posterior costophrenic angles. 3-dimensional maximum intensity projection (MIP) coronal and sagittal reformats were then acquired through the thorax. For radiation dose reduction, the following was used: automated exposure control, adjustment of mA and/or kV according to patient size. COMPARISON: [facility], CR, XR CHEST 1V, 09/29/2023, 18:39. FINDINGS: Image quality: Diagnostic. Pulmonary arteries: Pulmonary arteries are normal in size, and demonstrate no intraluminal filling defects to suggest central pulmonary embolism. Lower Neck: No enlarged lymph nodes. Thyroid: No thyroid nodules which require sonographic follow up, per consensus guidelines. Axillae: No enlarged lymph nodes. Chest Wall: Unremarkable. Bones: Unremarkable. Lungs and Pleura: No pneumothorax or pleural effusions. No consolidation or suspicious nodules. There is mild linear atelectasis at each lung base and a slight degree of lower lung alveolar edema potentially early cardiogenic origin. Heart: Heart size is normal. No pericardial effusion. Thoracic Vessels: No aortic aneurysm. Mediastinum and Laura: No enlarged lymph nodes. Esophagus: No wall thickening. No hiatal hernia. Upper Abdomen: Visualized upper abdomen solid organs and bowel loops appear normal. IMPRESSION: No pulmonary embolus. Slight alveolar edema over the lower half of the lungs potentially a manifestation of early cardiogenic pulmonary edema. Mild linear atelectasis at each lung base. Dictated by: Luis Walker M.D. on 09/29/2023 at 21:08 Approved by: Luis Walker M.D. on 09/29/2023 at 21:10 ECG Data Attestation: I personally reviewed and interpreted this ECG as follows: Interpretation: Normal sinus rhythm rate 85 RI interval 224 QRS [address] changes MDM Narrative Medical decision making narrative: MDM CC: Shortness of breath Complicating co-morbidities: Alzheimer's dementia Corroborating data: From daughter who is primary historian Medical records reviewed: Yes including recent ED visit on September 23 Differential considered: Congestive heart failure pneumonia pulmonary embolism acute coronary syndrome, DVT, anemia, respiratory illness Exam documented above, pertinent findings include: Bilateral +2 pitting edema left greater than right with some mild erythema on the left Lab Test results independently reviewed as above. Pertinent findings: WBC 9.6, hemoglobin 14.5, hematocrit 43.8, platelets 176, sodium 140 potassium 3.9, chloride 106, carbon dioxide 27, BUN 25, creatinine 1.34, lactate 2.2 with repeat 1.2, troponin 0.02 BNP 503 previously 556 Independently reviewed EKG as above no ischemic changes Imaging studies independently reviewed: Chest x-ray no acute abnormality DVT study no DVT bilaterally, CT chest does show pulmonary edema without pulmonary embolism Consultations: None Treatments: Lasix 40 mg Re-evaluations: [ ] Discussion: Patient 87-year-old male has persistent and increasing lower extremity edema and persistent shortness of breath with exertion. It does sound like it is quite a lot he is short of breath is very minimal exertion but not hypoxic here in the ED. he has no known history of congestive heart failure and he has failed outpatient treatment. He was tried on Lasix initially sounds like it was helping but now it is no longer helping. He has no evidence of infection pulmonary embolism or acute coronary syndrome. His legs are quite swollen with a CT scan that shows pulmonary edema I suspect some degree of congestive heart failure Dr. Engel accepts patient Discharge Plan Departure Patient Disposition: Admitted As Inpatient Clinical Impression: CHF (congestive heart failure) Admit Date/Time: 09/29/23 21:55 Admit Provider: Garett Elizondo
--- NOTE | 2023-09-29 18:33 | DI.RAD.S_ITS ---
PROCEDURE: XR CHEST 1V INDICATIONS: Shortness of breath TECHNIQUE: One view of the chest was acquired. COMPARISON: [facility], , XR CHEST 1V, 07/02/2021, 21:36. [facility], CR, XR CHEST 1V, 09/24/2023, 18:07. FINDINGS: Surgical changes and devices: None. Lungs and pleura: On this semiupright portable chest examination, no large pneumothorax or large pleural effusions are seen. No focal infiltrates are seen. Mediastinum: The cardiac contours are within normal limits. The aorta demonstrates calcification and tortuosity. Bones and chest wall: Age-appropriate bony degenerative changes are seen. No suspicious bony lesions. Overlying soft tissues appear unremarkable. IMPRESSION: Portable chest within normal limits for age. Dictated by: Ramon Kidd M.D. on 09/29/2023 at 18:03 Approved by: Ramon Kidd M.D. on 09/29/2023 at 18:04
[2023-09-29 18:39] LABS: Add Manual Diff / Slide Review NO; Basophils Absolute Auto 100 /uL (0-100); Basophils Percent Auto 0.6 % (0-2); Eosinophils Absolute Auto 300 /uL (0-450); Eosinophils Percent Auto 2.8 % (2-4); Hematocrit 43.8 % (41-53); Hemoglobin 14.5 g/dL (13.5-17.5); Lymphocytes Absolute Auto 4700 /uL (1100-4500); Lymphocytes Percent Auto 49.1 % (25-40); Mean Corpuscular HGB Conc 33.1 % (30-36); Mean Corpuscular Hemoglobin 30.1 PG (26-34); Mean Corpuscular Volume 90.7 fL (80-100); Monocytes Absolute Auto 500 /uL (0-900); Monocytes Percent Auto 5.7 % (3-14); Neutrophils Absolute Auto 4000 /uL (1500-7000); Neutrophils Percent Auto 41.8 % (50-75); Platelet Count 176 X10^3/uL (150-400); Red Blood Cell Count 4.83 X10^6/uL (4.5-5.9); Red Cell Distribution Width 15.3 % (11.6-14.8); White Blood Cell Count 9.6 X10^3/uL (4.5-11.0)
--- NOTE | 2023-09-29 18:41 | DI.US.S_ITS ---
PROCEDURE: US PERIPH VENOUS LOW EXTREM BI INDICATIONS: swelling TECHNIQUE: Real-time imaging, as well as color and pulse Doppler interrogation, were performed of the deep veins of both legs from the inguinal ligament to the popliteal fossa, with documentation of the visualized calf veins. COMPARISON: None. FINDINGS: Right: The common femoral, femoral, popliteal, and the visualized calf veins are normally compressible, and free of intraluminal thrombus. Color and pulse Doppler demonstrate normal phasic intravascular flow. There is normal augmentation response to distal compression maneuver. Left: The common femoral, femoral, popliteal, and the visualized calf veins are normally compressible, and free of intraluminal thrombus. Color and pulse Doppler demonstrate normal phasic intravascular flow. There is normal augmentation response to distal compression maneuver. IMPRESSION: No DVT found. Dictated by: Luis Walker M.D. on 09/29/2023 at 20:05 Approved by: Luis Walker M.D. on 09/29/2023 at 20:05
[2023-09-29 18:42] LABS: Prothrombin Time 11.7 SECONDS (9.4-12.5)
[2023-09-29 18:50] LABS: PTT Partial Thromboplastin Tim 34 SECONDS (25.1-36.5)
[2023-09-29] MEDS: FUROSEMIDE 40 MG/4 ML VIAL IV (18:51)
[2023-09-29 18:55] LABS: Creatine Kinase 133 U/L (55-170); Lactate (Lactic Acid) 2.2 mmol/L (0.7-2.1)
[2023-09-29 18:56] LABS: Alanine Aminotransferase 30 IU/L (<50); Albumin 4.2 g/dL (3.5-5.0); Albumin Globulin Ratio 1.4 (1.0-2.8); Alkaline Phosphatase 116 U/L (38-126); Aspartate Aminotransferase 36 IU/L (17-59); BUN Creatinine Ratio 18.7 (6-22); Bilirubin Total 0.9 mg/dL (0.2-1.3); Blood Urea Nitrogen 25 mg/dL (9-20); Calcium 9.2 mg/dL (8.4-10.2); Carbon Dioxide 27 mmol/L (22-32); Chloride 106 mmol/L (98-107); Estimated Glomerular Filt Rate 52 mL/min (>60); Glucose 100 mg/dL (80-110); HEMOLYSIS < 15 (0-50); Potassium 3.9 mmol/L (3.4-5.1); Sodium 140 mmol/L (137-145); Total Protein 7.2 g/dL (6.3-8.2)
[2023-09-29 19:05] LABS: NT-proBNP (BNP-Adult 18+) 503 pg/mL (<450)
[2023-09-29 20:11] LABS: Reflexed Lactate in 2 Hours Y
[2023-09-29 20:40] LABS: Lactate 2HR (Lactic Acid Rflx) 1.2 mmol/L (0.7-2.1)
--- NOTE | 2023-09-29 20:56 | DI.CT.S_ITS ---
PROCEDURE: CT ANGIO CHEST PE PROTOCOL INDICATIONS: hypoxia TECHNIQUE: After the administration of intravenous contrast, 2 mm thick sections acquired from the pulmonary apices to the posterior costophrenic angles. 3-dimensional maximum intensity projection (MIP) coronal and sagittal reformats were then acquired through the thorax. For radiation dose reduction, the following was used: automated exposure control, adjustment of mA and/or kV according to patient size. COMPARISON: [facility], CR, XR CHEST 1V, 09/29/2023, 18:39. FINDINGS: Image quality: Diagnostic. Pulmonary arteries: Pulmonary arteries are normal in size, and demonstrate no intraluminal filling defects to suggest central pulmonary embolism. Lower Neck: No enlarged lymph nodes. Thyroid: No thyroid nodules which require sonographic follow up, per consensus guidelines. Axillae: No enlarged lymph nodes. Chest Wall: Unremarkable. Bones: Unremarkable. Lungs and Pleura: No pneumothorax or pleural effusions. No consolidation or suspicious nodules. There is mild linear atelectasis at each lung base and a slight degree of lower lung alveolar edema potentially early cardiogenic origin. Heart: Heart size is normal. No pericardial effusion. Thoracic Vessels: No aortic aneurysm. Mediastinum and Laura: No enlarged lymph nodes. Esophagus: No wall thickening. No hiatal hernia. Upper Abdomen: Visualized upper abdomen solid organs and bowel loops appear normal. IMPRESSION: No pulmonary embolus. Slight alveolar edema over the lower half of the lungs potentially a manifestation of early cardiogenic pulmonary edema. Mild linear atelectasis at each lung base. Dictated by: Luis Walker M.D. on 09/29/2023 at 21:08 Approved by: Luis Walker M.D. on 09/29/2023 at 21:10
--- NOTE | 2023-09-29 22:39 | DI.ECHO.S_ITS ---
[place] [facility]+ [facility] : : [id number] : : [place] : : [id number] : : Phone: [phone] Echocardiogram Report + + :Name: BEBETO COYLE Study Date: 09/30/2023 Height: 68 in : :[facility] : Weight: 235 lb : : Gender: Male BSA: 2.2 m2 : :: 1935 Age: 87 yrs BP: 121/71 mmHg: :Reason For Study: CONGESTIVE HEART FAILURE : :Ordering Physician: : :Tricia LOPEZformed By: Waqas Abdul : : : :Referring: UNSPECIFIED : + + Interpretation Summary The study quality was technically difficult. There is mild-moderate concentric left ventricular hypertrophy. The ejection fraction is estimated to be 55-60%. Diastolic function could not be accurately assessed due to unobtainable data. The right ventricle is not well visualized. There is mild aortic regurgitation. Pulmonary artery pressures cannot be estimated because of the lack of a measurable TR jet velocity. Procedure: A two-dimensional transthoracic echocardiogram with color flow and Doppler was performed. The study quality was technically difficult. Comparison is made with the echocardiogram of 07/03/2021. The patient was in normal sinus rhythm during the exam. The heart rate ranged between 84-89 bpm during the study. Left Ventricle: The left ventricle is normal in size. There is mild-moderate concentric left ventricular hypertrophy. The ejection fraction is estimated to be 55-60%. Regional wall motion abnormalities cannot be excluded due to limited visualization. Diastolic function could not be accurately assessed due to unobtainable data. Right Ventricle: The right ventricle is not well visualized. Atria: The left atrial size is normal. Right atrium not well visualized secondary to technical limitations. The interatrial septum grossly appears intact with no obvious evidence for an atrial septal defect. Mitral Valve: The mitral valve is normal. There is no mitral valve stenosis. There is no mitral regurgitation noted. Aortic Valve: The aortic valve is trileaflet. The aortic valve is mildly calcified. There is no aortic valve stenosis. There is mild aortic regurgitation. Tricuspid Valve: The tricuspid valve is not well visualized. There is no tricuspid stenosis. There is a trace or physiologic amount of tricuspid regurgitation. Pulmonary artery pressures cannot be estimated because of the lack of a measurable TR jet velocity. Pulmonic Valve: The pulmonic valve is not well visualized. There is no pulmonic valvular stenosis. There is no pulmonic valvular regurgitation. Great Vessels: The aortic root is normal size. The ascending aorta could not be visualized. The inferior vena cava was not visualized. Pericardium/ Pleura There is no pericardial effusion. There is no pleural effusion. MMode/2D Measurements & Calculations LVIDd: 4.0 cm LVOT diam: 2.4 cm LVIDs: 2.7 cm Ao root diam: 3.7 cm FS: 31.1 % IVSd: 1.6 cm LVPWd: 1.7 cm LV garcia. diameter/BSA (cm/m^2): 1.8 LV sys. diameter/BSA (cm/m^2): 1.3 LA A2 area: 13.1 cm2 LA A4 area: 22.6 cm2 LA length (vol): 6.4 cm LA vol: 39.2 ml LA vol index: 17.9 ml/m2 Doppler Measurements & Calculations Ao V2 max: 135.6 cm/sec LVOT Max Todd: 105.6 cm/sec Ao V2 mean: 98.2 cm/sec LV V1 max P.5 mmHg Ao max P.4 mmHg LV V1 VTI: 18.6 cm Ao mean P.4 mmHg TRISH(I,D): 4.0 cm2 Ao V2 VTI: 20.5 cm TRISH(V,D): 3.4 cm2 sev ratio: 0.91 TRISH indexed to BSA (cm^2/m^2): 1.8 MV E max todd: 50.4 cm/sec TR max todd: 273.7 cm/sec MV A max todd: 94.1 cm/sec TR max P.0 mmHg MV E/A: 0.54 PA V2 max: 84.6 cm/sec MV dec time: 0.18 sec PA V2 mean: 62.7 cm/sec PA mean P.7 mmHg PA pr(Accel): 46.5 mmHg SV(LVOT): 81.9 ml Reading Physician:02:44 PM
--- NOTE | 2023-09-29 22:40 | PM.HP.1 ---
History of Present Illness History of Present Illness Chief complaint: SOB/leg and foot swelling Narrative: 87 y/o with PMH of Alzheimer's dementia, HLD, prostate Ca, initially seen on 09/23 in the ED for b/l lower leg swelling and exertional dyspnea. Diagnosed with new onset CHF and discharged on Lasix, to follow with PCP. His accompanying daughter reported on initial mild improvement of the symptoms and then they came back, despite doubling Lasix to 40 mg daily. On prior vist he had venous doppler negative for DVT. Todays CT chest showing pulmonary edema, w/o evidence of PE. Borderline hypoxemic on room air at rest. Given 40 mg of Lasix iv in the ED and admitted for diuresis, monitoring of renal function / electrolytes. [facility] Medical History COVID-19 Prostate cancer Hyperlipidemia No significant medical problems Surgical History History of herniorrhaphy H/O hemorrhoidectomy Hx of cholecystectomy Social History household members: spouse, family and children Smoking Status: Never smoker Meds Home Medications and Allergies Home Medications Medication Instructions Recorded Confirmed Type aspirin 81 mg tablet,delayed 81 mg PO DAILY ##0 08/26/17 07/02/21 History release donepezil 5 mg tablet 5 mg PO BEDTIME 07/02/21 07/02/21 History escitalopram oxalate 10 mg tablet 10 mg PO DAILY 07/02/21 07/02/21 History mirtazapine 15 mg tablet 7.5 mg PO BEDTIME 07/02/21 07/02/21 History rosuvastatin 20 mg tablet 20 mg PO BEDTIME 07/02/21 07/02/21 History furosemide 20 mg tablet 20 mg PO DAILY #30 tabs 09/24/23 Rx nystatin 100,000 unit/gram topical 1 applic topical BID #60 grams 09/24/23 Rx powder Allergies Allergy/AdvReac Type Severity Reaction Status Date / Time ranitidine [RANITIDINE] Allergy Severe reaction Verified 09/29/23 18:28 not known. reported from Primary MD Review of Systems Review of Systems Narrative: obtained from the daughter Cardiovascular Comments: w/o chest pain Respiratory Comments: short of breath after 100 feet Neurologic Comments: recurrent falls, walker / cane Exam Vital Signs (past 8 hours): - 09/29/23 18:23 09/29/23 18:47 09/29/23 19:00 Temperature 97.9 F Pulse Rate 83 83 84 Respiratory Rate 22 23 22 Blood Pressure 143/82 H Pulse Oximetry 95 95 95 Oxygen Delivery Method Room Air Room Air 09/29/23 19:00 09/29/23 19:30 09/29/23 19:30 Temperature Pulse Rate 83 Respiratory Rate 21 Blood Pressure 135/85 124/85 Pulse Oximetry 94 Oxygen Delivery Method 09/29/23 20:00 09/29/23 20:00 09/29/23 20:30 Temperature Pulse Rate 75 Respiratory Rate 24 Blood Pressure 136/86 119/76 Pulse Oximetry 93 Oxygen Delivery Method 09/29/23 20:30 09/29/23 21:00 09/29/23 21:00 Temperature Pulse Rate 74 75 Respiratory Rate 24 28 H Blood Pressure 126/79 Pulse Oximetry 93 95 Oxygen Delivery Method Room Air 09/29/23 21:30 09/29/23 21:30 09/29/23 22:00 Temperature Pulse Rate 77 Respiratory Rate 22 Blood Pressure 124/78 123/74 Pulse Oximetry 94 Oxygen Delivery Method 09/29/23 22:00 09/29/23 22:30 09/29/23 22:30 Temperature Pulse Rate 70 73 Respiratory Rate 27 H 24 Blood Pressure 144/81 H Pulse Oximetry 95 94 Oxygen Delivery Method Oxygen Delivery Method Room Air Narrative Exam Narrative: NAD, daughter at bedside HENMT Other: hearing loss Neck Other: w/o JVD Resp Other: normal respiratory effort at rest Cardio Other: RRR Neuro Other: memory deficits Psych Other: appropriate mood and affect Objective ECG Impression: NSR 85 Labs 09/29/23 18:27 09/29/23 18:27 Labs: Laboratory Results - last 24 hr 09/29/23 09/29/23 18:27 20:23 WBC 9.6 RBC 4.83 Hgb 14.5 Hct 43.8 MCV 90.7 MCH 30.1 MCHC 33.1 RDW 15.3 H Plt Count 176 Neut % (Auto) 41.8 L Lymph % (Auto) 49.1 H [place] % (Auto) 5.7 Eos % (Auto) 2.8 Baso % (Auto) 0.6 Neut # (Auto) 4000 Lymph # (Auto) 4700 H [place] # (Auto) 500 Eos # (Auto) 300 Baso # (Auto) 100 PT 11.7 INR 1.0 APTT 34 Sodium 140 Potassium 3.9 Chloride 106 Carbon Dioxide 27 BUN 25 H Creatinine 1.34 H Estimated GFR 52 L BUN/Creatinine Ratio 18.7 Glucose 100 Lactate 2.2 H 1.2 Calcium 9.2 Total Bilirubin 0.9 AST 36 ALT 30 Alkaline Phosphatase 116 Total Creatine Kinase 133 Troponin I 0.020 NT-Pro-B Natriuret Pep 503 H Total Protein 7.2 Albumin 4.2 Globulin 3.0 Albumin/Globulin Ratio 1.4 Assessment & Plan Assessment and plan (1) New onset of congestive heart failure: Status: Acute (2) Alzheimer's dementia: Status: Acute (3) Hyperlipidemia: Status: Acute Assessment & Plan narrative: 1. New onset CHF - diuresis, electrolytes monitoring,echocardiogram 2. Azhemier's dementia - supportive care, Arizept, Lexapro, Mirtazapine 3. HLD - statin 4. JANETT / CKD - worsened renal function, below presumed stage 2 DVT prophylaxis - Lovenox
--- NOTE | 2023-09-29 22:51 | PC.NURSE ---
Pt states he has not noticed any change in his breathing since arrival to ER today. Update to pt and daughter about admission to room 210. All belonging bagged and labeled along with pts wood cane.
[2023-09-30 03:00] VITALS: BP 146/78; PULSE 78; RESP 17; TEMP 35.9; O2SAT 96
[2023-09-30 06:39] LABS: Add Manual Diff / Slide Review NO; Basophils Absolute Auto 0 /uL (0-100); Basophils Percent Auto 0.5 % (0-2); Eosinophils Absolute Auto 300 /uL (0-450); Eosinophils Percent Auto 3.3 % (2-4); Hematocrit 42.6 % (41-53); Hemoglobin 14.3 g/dL (13.5-17.5); Lymphocytes Absolute Auto 3100 /uL (1100-4500); Lymphocytes Percent Auto 40.2 % (25-40); Mean Corpuscular HGB Conc 33.5 % (30-36); Mean Corpuscular Hemoglobin 30.1 PG (26-34); Mean Corpuscular Volume 89.9 fL (80-100); Monocytes Absolute Auto 400 /uL (0-900); Monocytes Percent Auto 5.3 % (3-14); Neutrophils Absolute Auto 4000 /uL (1500-7000); Neutrophils Percent Auto 50.7 % (50-75); Platelet Count 165 X10^3/uL (150-400); Red Blood Cell Count 4.74 X10^6/uL (4.5-5.9); Red Cell Distribution Width 15.5 % (11.6-14.8); White Blood Cell Count 7.8 X10^3/uL (4.5-11.0)
[2023-09-30 06:53] LABS: BUN Creatinine Ratio 23.2 (6-22); Blood Urea Nitrogen 26 mg/dL (9-20); Calcium 9.1 mg/dL (8.4-10.2); Carbon Dioxide 29 mmol/L (22-32); Chloride 107 mmol/L (98-107); Estimated Glomerular Filt Rate > 60 mL/min (>60); Glucose 93 mg/dL (80-110); HEMOLYSIS 26 (0-50); Magnesium 1.8 mg/dL (1.6-2.3); Potassium 3.7 mmol/L (3.4-5.1); Sodium 140 mmol/L (137-145)
--- NOTE | 2023-09-30 07:15 | PM.PN.1 ---
Subjective Subjective Interval history: His breathing feels all right in the hospital bed. He is still has gross edema of both legs. This edema is new in his been ongoing for about 2 weeks. He was also having dyspnea on exertion. He has not hypoxic at rest. He has no history of heart failure. He has no clear history of CAD or myocardial infarction. Echo was completed with the read pending. Exam Vital Signs (past 8 hours): - 09/29/23 23:33 09/30/23 03:00 Temperature 96.6 F L Pulse Rate 78 Respiratory Rate 17 Blood Pressure 146/78 H Pulse Oximetry 96 Oxygen Delivery Method Room Air Oxygen Delivery Method Room Air Oxygen Flow Rate 0 Narrative Exam Narrative: NAD, alert and oriented. Fluent speech. Lungs are clear, normal rate and effort. Heart is regular, no murmur gallop or rub. Abdomen is soft, non distended. Extremities are free of edema. Objective Imaging CT scan - chest: Radiologist's impression: No pulmonary embolus. Slight alveolar edema over the lower half of the lungs potentially a manifestation of early cardiogenic pulmonary edema. Mild linear atelectasis at each lung base. Venous US: Radiologist's impression: No DVT found. Chest x-ray: Radiologist's impression: Portable chest within normal limits for age. Labs 09/30/23 05:35 09/30/23 05:35 Labs: Laboratory Results - last 24 hr 09/29/23 09/29/23 09/30/23 18:27 20:23 05:35 WBC 9.6 7.8 RBC 4.83 4.74 Hgb 14.5 14.3 Hct 43.8 42.6 MCV 90.7 89.9 MCH 30.1 30.1 MCHC 33.1 33.5 RDW 15.3 H 15.5 H Plt Count 176 165 Neut % (Auto) 41.8 L 50.7 Lymph % (Auto) 49.1 H 40.2 H [place] % (Auto) 5.7 5.3 Eos % (Auto) 2.8 3.3 Baso % (Auto) 0.6 0.5 Neut # (Auto) 4000 4000 Lymph # (Auto) 4700 H 3100 [place] # (Auto) 500 400 Eos # (Auto) 300 300 Baso # (Auto) 100 0 PT 11.7 INR 1.0 APTT 34 Sodium 140 140 Potassium 3.9 3.7 Chloride 106 107 Carbon Dioxide 27 29 BUN 25 H 26 H Creatinine 1.34 H 1.12 Estimated GFR 52 L > 60 BUN/Creatinine Ratio 18.7 23.2 H Glucose 100 93 Lactate 2.2 H 1.2 Calcium 9.2 9.1 Magnesium 1.8 Total Bilirubin 0.9 AST 36 ALT 30 Alkaline Phosphatase 116 Total Creatine Kinase 133 Troponin I 0.020 NT-Pro-B Natriuret Pep 503 H Total Protein 7.2 Albumin 4.2 Globulin 3.0 Albumin/Globulin Ratio 1.4 PFSH Medical History COVID-19 Prostate cancer Hyperlipidemia No significant medical problems Surgical History History of herniorrhaphy H/O hemorrhoidectomy Hx of cholecystectomy Social History household members: spouse Smoking Status: Never smoker alcohol intake: never Assessment & Plan Assessment & Plan narrative: 1. New onset CHF, present on admission and active. - diuresis, electrolytes monitoring,echocardiogram -echo complete with read pending. 2. Azhemier's dementia, present on admission and stable. - supportive care, Arizept, Lexapro, Mirtazapine 3. HLD, stable. - statin 4. CKD, present on admission and stable. - worsened renal function, below presumed stage 2 DVT prophylaxis - Lovenox Proxy is . Met with and son at the bedside. The patient is do not resuscitate. Quality VTE Deep Vein Thrombosis/Pulmonary Embolism Present on Admission: No
[2023-09-30 09:06] VITALS: BP 107/73; PULSE 84; RESP 18; TEMP 36.1; O2SAT 92
[2023-09-30] MEDS: ENOXAPARIN 40 MG/0.4 ML SYRINGE SUBCUT ×2 (09:21→20:49)
[2023-09-30] MEDS: ASPIRIN EC 81 MG TABLET PO (09:21)
[2023-09-30] MEDS: FUROSEMIDE 40 MG/4 ML VIAL IV ×2 (09:21→20:48)
[2023-09-30] MEDS: ESCITALOPRAM 10 MG TABLET PO (09:21)
[2023-09-30] MEDS: SODIUM CHLORIDE 0.9% FLUSH 10 ML IV ×2 (09:22→20:54)
[2023-09-30 11:00] VITALS: BP 121/71; PULSE 88; RESP 20; TEMP 36.1; O2SAT 93
--- NOTE | 2023-09-30 11:37 | CM.DANOTE ---
Patient is an 87 yo male who was admitted on 09/29/23 for CHF and failed outpt abx. Pt has MCR and BX FED for insurance and his PCP is Dr. Campos Quintana. EMR was reviewed. Per , pt with hx of dementia, prostate CA, and failed outpt abx for CHF and admitted for IV-Abx and diuresis. Pt may be stable for discharge today vs tomorrow pending labs and vitals. PT ordered and pending. Per RN, pt seems to be A&O x3. SW met bedside with pt and spouse and explained role and they confirm they live in [place] at home and have grandson living next door and pt's brother and sister inlaw in their neighborhood as well. Pt is active and independent at baseline and does not use DME for ambulation and they confirm that Dtr is DPOA. Pt states he used HH a couple weeks ago and not currently open with HH and they cannot remember which HH agency they used. Pt and spouse unsure if HH needed again and preference is to d/c home when medically stable. Plan: SW to follow for PT eval and recommendations to confirm safe plan of discharge home with spouse and r/o HH or any further identified discharge planning needs. FELTON Nice Discharge Planning/Care Management Advanced directive, confirm from FAMILY Start: 09/29/23 23:32 Freq: Q24H Status: Active Protocol: Document 09/29/23 23:25 BR (Rec: 09/30/23 00:07 BR [id number]) Advance Directive, confirm on record Time 23:25 Person contacted daughter Copy received No Document 09/29/23 23:32 BR (Rec: 09/30/23 01:22 BR [id number]) Advance Directive, confirm on record Time 23:25 Person contacted daughter Copy received No CM Discharge Assessment Start: 09/30/23 11:33 Freq: Status: Active Protocol: Document 09/30/23 11:33 BF (Rec: 09/30/23 11:37 BF [id number]) Discharge Planning Assessment Assigned Geothermal Operations Engineer FELTON James DPOA/Assigned Designee Name spouse and Dtr Contact Information [phone] Advance Directives? Yes Advance Directives on File No History Provided By Patient,Family Member, Significant Other,Medical Record Has Patient been admitted in last 30 No days? Comment last admit in Jun 2021 with COVID+ and discharged home with family Prior Living Arrangements House Household Members spouse Type of transporation used prior to Relies on Others admit Independent with ADL's Yes Is patient alert and oriented? Yes: mostly, mild dementia Needs Assistance With Managing Medications Caregiver for Another No Comment PT pending to r/o HH needs Barriers to Discharge No Discharge Plan Home Transportation Arrangement Spouse bedside and can transport, they also have local supportive family Referrals Initiated None needed Additional Comment Pending PT eval and recommendations to r/o HH Whiteboard Updated in Patient Room with Yes name and ext. # of Geothermal Operations Engineer Review Status In Process Please Provide Date Initial DC 09/30/23 Assessment Was Performed Next Review Type Continued Stay Review
[2023-09-30 15:00] VITALS: BP 115/70; PULSE 90; RESP 18; TEMP 36.2; O2SAT 93
--- NOTE | 2023-09-30 15:22 | PT.IIE ---
Current Diagnoses Hyperlipidemia, unspecified (09/29/23) Dementia in other diseases classified elsewhere, unspecified severity, without behavioral disturbance, psychotic disturbance, mood disturbance, and anxiety (09/29/23) Alzheimer's disease, unspecified (09/29/23) Heart failure, unspecified (09/29/23) Surgical History (Last Reviewed 09/30/23 @ 13:37 by Jl Jefferson MD) H/O hemorrhoidectomy History of herniorrhaphy Hx of cholecystectomy Medical History (Last Reviewed 09/30/23 @ 13:37 by Jl Jefferson MD) COVID-19 Hyperlipidemia No significant medical problems Prostate cancer Physical Therapy Inpatient Evaluation/Re-Eval M1 PT/OT-IP Prior Functional Status Start: 09/30/23 14:43 Freq: NEEDED Status: Active Protocol: Document 09/30/23 14:44 MB (Rec: 09/30/23 15:22 MB [id number]) Medical Review Prior Functional Status Medical History Reviewed Yes Diet/Fluid Consistency Regular Communication WNLs, CHEFORNAK Mobility and Gait I to mod I with cane, likely furniture walking in the house and slept on the couch because it was easier for him to get up from Activities of Daily Living and IADL's assist with bathing, pt sitting on bath bench in the walk in shower, assist with socks Social History Household Members spouse Living Arrangements House Number of Floors (Floors) One Floor Number of Stairs To Enter/Railing? 2 steps to enter and no rail, threshold and door jam used Home Environment Standard Height Toilet,Walk in Shower,Built-In Shower Seat Home Equipment Front Wheel Walker,Straight Cane,Shower Seat without Backrest,Hand Held Shower Employment Status Retired Additional Social History Comment Pt, , and son all answer home equipment questions at the same time and differently M2 PT-IP Current Condition Start: 09/30/23 14:43 Freq: NEEDED Status: Active Protocol: Document 09/30/23 14:44 MB (Rec: 09/30/23 15:22 MB [id number]) Physical Therapy Current Condition Current Condition Evaluation Date 09/30/23 Treatment Diagnosis LE edema M3 PT-IP Subjective Start: 09/30/23 14:43 Freq: NEEDED Status: Active Protocol: Document 09/30/23 14:44 MB (Rec: 09/30/23 15:22 MB [id number]) Subjective Physical Therapy Visit Type Visit Start Time 14:44 Visit Stop Time 15:02 Number of HEEL STAINER Visits 0 Physical Therapy Visit Comments Patient Comments Pt is CHEFORNAK and is agreeable to PT. would like for them to keep watching the [employer] game. Son also nearby. Therapy Pain Assessment Pain When Pain Assessed At Rest Pain Present Pain Present Denied Pain M4 PT-IP Mobility and Gait Start: 09/30/23 14:43 Freq: NEEDED Status: Active Protocol: Document 09/30/23 14:44 MB (Rec: 09/30/23 15:22 MB [id number]) PT-Bed Mobility Assessment Supine to Sit Supine to Sit Contact Guard Assistance,1 Person Assistance,Head of Bed Elevated,Bedrails Scooting Scooting to Edge of Bed Contact Guard Assistance Scooting Up and Down in Bed Contact Guard Assistance PT-Transfer Assessment Sit to and From Stand Sit to and from Stand Contact Guard Assistance,1 Person Assistance,Use of Upper Extremities Equipment Transfer Assistive Device Gait Belt,Front Wheeled Walker Orthotic/Prosthetic Devices or Brace: No Transfers Transfer Destination Chair Transfer Technique Stepping Transfer Ability Level of Assist Contact Guard Assistance Comments Mobility Comments Pt moves slowly but he does well with use of HOB increased and rail. Gait Assessment Gait Gait Assistance Required: Contact Guard Assist Distance (Feet) 20 Able to Maintain Weight Bearing Status Yes During Gait Assistive Devices Assistive Device Gait Belt,Front Wheeled Walker Orthotic/Prosthetic Devices or Brace: No Gait Deviations General Gait Pattern Decreased Stride Length, Decreased Feet Clearance, Flexed Trunk,Wide Based Gait Factors Limiting Gait Function Factors Limiting Gait Function Decreased Activity Tolerance, Decreased Strength,Difficulty Following Directions,Poor Balance,Poor Safety Awareness Comments Gait Comments B LE edema, feet with increased Christopher angle, decreased foot clearance and feet tend to stay outside of the walker. Pt gait trains wtih RW and cues. PT-Balance Assessment Sitting Balance and Reactions Static Sitting Balance Ability Good Dynamic Sitting Balance Ability Good Standing Balance and Reactions Static Standing Balance Ability Good Dynamic Standing Balance Ability Good Device Used RW M5 PT-IP Objective Assessments Start: 09/30/23 14:43 Freq: NEEDED Status: Active Protocol: Document 09/30/23 14:44 MB (Rec: 09/30/23 15:22 MB [id number]) Orientation Orientation/Cognition Level of Alertness Alert Orientation Name,Birthday,Place,Situation Language Function Ability Hard of Hearing Safety Awareness Decreased Safety Awareness Comments CHEFORNAK vs some memory challenges, PT favors CHEFORNAK and pt and and son all answer questions differently and so challenging getting baseline info Gross Range of Motion Upper Extremity ROM Assessment Within Functional Limits Lower Extremity ROM Assessment Bilaterally Impaired Strength Comments Strength Comments B LE edema and strength grossly 3-/5 with mobility today M6 PT-IP Treatment Start: 09/30/23 14:43 Freq: NEEDED Status: Active Protocol: Document 09/30/23 14:44 MB (Rec: 09/30/23 15:22 MB [id number]) Physical Therapy Treatment Education Education Provided Safety M7 PT-IP Assessment and Plan Start: 09/30/23 14:43 Freq: NEEDED Status: Active Protocol: Document 09/30/23 14:44 MB (Rec: 09/30/23 15:22 MB [id number]) PT Summary Assessment and Plan Potential Rehabilitation Potential Good Status of Condition at Evaluation Evolving Summary Impairments ROM,Strength,Balance,Transfers ,Gait,Activity Tolerance Progress Towards Goals Progressing Toward Goals Assessment Summary Pt is a pleasant gentleman presenting with CHEFORNAK and trouble answering questions. He presents with B LE edema. He makes a good effort with PT and is able to get OOB with SB to CGA with HOB increased and use of rail. Pt sleeps on couch at home. He transfers and gait trains 20' with RW and CGA with wide BALDOMERO and feet sometimes outside of walker. He has decreased command- following and safey insight that may be related to decreased hearing. and son feel that pt can d/c back home with their support and HH when he is ready for d/c. Goals Transfer Goal Standby Assistance,Front Wheeled Walker Gait Goal Standby Assistance,Front Wheel Walker Gait Distance 50 Other Goals Pt will ascend and descend two steps with LRAD and CGA to allow safe home entrance. PT can also place transportable step in hospital room doorway to see if he can ascend the step this way as this is how he does it at home, using door jam. Days to Meet Goals 5 Frequency of Treatment Frequency Of Treatment Once a Day Treatment Plan Physical Therapy Treatment Plan Transfer Training,Gait Training,Therapeutic Exercise, Balance Retraining,Discharge Planning Other Recommendations and Next Treatment Sleeps on the couch at home Focus and so no bed mobility goal Weight Bearing Status Weight Bearing Status Weight Bear as Tolerated Recommendations To Nursing Amount of Assist Needed 1 Person Assist Discharge Recommendations PT Discharge Recommendations Home with 25/12 Assist Available,Home Health Transportation Needs at Discharge Private Vehicle
[2023-09-30 20:30] VITALS: BP 109/69; PULSE 81; RESP 18; TEMP 35.9; O2SAT 93
[2023-09-30] MEDS: ATORVASTATIN 20 MG TABLET 40 MG PO (20:48)
[2023-09-30] MEDS: DONEPEZIL 5 MG TABLET PO (20:49)
[2023-09-30] MEDS: MIRTAZAPINE 15 MG TABLET 7.5 MG PO (20:49)
[2023-10-01] VITALS: BP 144/80; PULSE 86; RESP 17; TEMP 36.6; O2SAT 94
[2023-10-01] MEDS: HALOPERIDOL 5 MG/ML VIAL IV (00:37)
[2023-10-01 05:42] VITALS: BP 145/80; PULSE 76; RESP 18; TEMP 37.1; O2SAT 94
[2023-10-01 07:00] VITALS: BP 113/74; PULSE 66; RESP 18; TEMP 36.2; O2SAT 96
[2023-10-01 09:05] LABS: Add Manual Diff / Slide Review NO; Basophils Absolute Auto 100 /uL (0-100); Basophils Percent Auto 0.8 % (0-2); Eosinophils Absolute Auto 200 /uL (0-450); Eosinophils Percent Auto 2.6 % (2-4); Hematocrit 39.9 % (41-53); Hemoglobin 13.4 g/dL (13.5-17.5); Lymphocytes Absolute Auto 3400 /uL (1100-4500); Lymphocytes Percent Auto 42.4 % (25-40); Mean Corpuscular HGB Conc 33.6 % (30-36); Mean Corpuscular Hemoglobin 30.2 PG (26-34); Mean Corpuscular Volume 90.1 fL (80-100); Monocytes Absolute Auto 500 /uL (0-900); Monocytes Percent Auto 6.8 % (3-14); Neutrophils Absolute Auto 3700 /uL (1500-7000); Neutrophils Percent Auto 47.4 % (50-75); Platelet Count 154 X10^3/uL (150-400); Red Blood Cell Count 4.42 X10^6/uL (4.5-5.9); Red Cell Distribution Width 15.3 % (11.6-14.8); White Blood Cell Count 7.9 X10^3/uL (4.5-11.0)
[2023-10-01] MEDS: ESCITALOPRAM 10 MG TABLET PO (09:10)
[2023-10-01] MEDS: FUROSEMIDE 40 MG/4 ML VIAL IV (09:10)
[2023-10-01] MEDS: ASPIRIN EC 81 MG TABLET PO (09:10)
[2023-10-01] MEDS: SODIUM CHLORIDE 0.9% FLUSH 10 ML IV (09:10)
[2023-10-01] MEDS: ENOXAPARIN 40 MG/0.4 ML SYRINGE SUBCUT (09:10)
[2023-10-01 09:24] LABS: BUN Creatinine Ratio 23.5 (6-22); Blood Urea Nitrogen 28 mg/dL (9-20); Calcium 9.3 mg/dL (8.4-10.2); Carbon Dioxide 32 mmol/L (22-32); Chloride 107 mmol/L (98-107); Estimated Glomerular Filt Rate 60 mL/min (>60); Glucose 90 mg/dL (80-110); HEMOLYSIS < 15 (0-50); Potassium 3.9 mmol/L (3.4-5.1); Sodium 139 mmol/L (137-145)
--- NOTE | 2023-10-01 10:28 | PM.DS.1 ---
History of Present Illness History of Present Illness Chief complaint: SOB/leg and foot swelling Narrative: 87 y/o with PMH of Alzheimer's dementia, HLD, prostate Ca, initially seen on 09/23 in the ED for b/l lower leg swelling and exertional dyspnea. Diagnosed with new onset CHF and discharged on Lasix, to follow with PCP. His accompanying daughter reported on initial mild improvement of the symptoms and then they came back, despite doubling Lasix to 40 mg daily. On prior vist he had venous doppler negative for DVT. Todays CT chest showing pulmonary edema, w/o evidence of PE. Borderline hypoxemic on room air at rest. Given 40 mg of Lasix iv in the ED and admitted for diuresis, monitoring of renal function / electrolytes. Discharge Providers Provider Date of admission: 09/29/23 21:55 Discharge Date: 10/01/23 Primary care physician: Campos Quintana MD Consults: 09/30/23 10:19 Consult to Physical Therapy Evaluate & Treat Comment: Physician Instructions: Evaluate and Treat 10/01/23 08:29 Consult to Home Health Routine Comment: CHF, fluid overload, weakness Reason For Exam: Set up HH RN/PT for discharge to home Discharge provider: Jl Jefferson MD Summary Hospital Course Discharge Diagnosis: 1. New onset CHF (diastolic), present on admission and active. 2. Azhemier's dementia, present on admission and stable. 3. HLD, stable. 4. CKD 2, present on admission and stable. Hospital Course: The patient was admitted for edema of the legs as well as possible pulmonary edema. He was diuresed. He was not hypoxic. An echo was obtained which revealed fairly normal ventricular function with no evidence of acute valvular abnormalities. The right side of the heart was hard to visualize in the study. The patient had no evidence of wall motion abnormalities. The patient was treated for diastolic heart failure with diuresis and had improved edema. On the day of discharge family was comfortable he had been on diuretic. A very close follow up with PCP within 6 days is also recommended. Status at Discharge Cognitive/behavioral status at discharge: at baseline, oriented Functional status at discharge: uses cane/walker Overall status at discharge: patient is back to baseline Time Spent with Patient Time spent: Greater than 30 minutes Exam Vital Signs (past 8 hours): - 10/01/23 05:42 10/01/23 07:00 Temperature 98.8 F 97.2 F L Pulse Rate 76 66 Respiratory Rate 18 18 Blood Pressure 145/80 H 113/74 Pulse Oximetry 94 96 Oxygen Flow Rate 0 0 Oxygen Delivery Method Room Air Oxygen Flow Rate 0 Narrative Exam Narrative: NAD, alert and oriented. Fluent speech. Lungs are clear, normal rate and effort. Heart is regular, no murmur gallop or rub. Abdomen is soft, non distended. Extremities are with 1+ edema, improved. Objective ECG Impression: NSR Imaging CT scan - chest: Radiologist's impression: CT scan - chest: Radiologist's impression: No pulmonary embolus. Slight alveolar edema over the lower half of the lungs potentially a manifestation of early cardiogenic pulmonary edema. Mild linear atelectasis at each lung base. Chest x-ray: Radiologist's impression: Portable chest within normal limits for age. Venous US: Radiologist's impression: No DVT Labs 10/01/23 08:55 10/01/23 08:55 Labs: Laboratory Results - last 24 hr 10/01/23 08:55 WBC 7.9 RBC 4.42 L Hgb 13.4 L Hct 39.9 L MCV 90.1 MCH 30.2 MCHC 33.6 RDW 15.3 H Plt Count 154 Neut % (Auto) 47.4 L Lymph % (Auto) 42.4 H Gosper % (Auto) 6.8 Eos % (Auto) 2.6 Baso % (Auto) 0.8 Neut # (Auto) 3700 Lymph # (Auto) 3400 [place] # (Auto) 500 Eos # (Auto) 200 Baso # (Auto) 100 Sodium 139 Potassium 3.9 Chloride 107 Carbon Dioxide 32 BUN 28 H Creatinine 1.19 Estimated GFR 60 BUN/Creatinine Ratio 23.5 H Glucose 90 Calcium 9.3 PFSH Medical History COVID-19 Prostate cancer Hyperlipidemia No significant medical problems Surgical History History of herniorrhaphy H/O hemorrhoidectomy Hx of cholecystectomy Social History household members: spouse Smoking Status: Never smoker alcohol intake: never Discharge Assessment & Plan Assessment and Plan Assessment: 1. New onset CHF (diastolic), present on admission and active. 2. Azhemier's dementia, present on admission and stable. 3. HLD, stable. 4. CKD 2, present on admission and stable. Plan of Treatment: discharge home with Lasix 60 mg daily and close follow up with PCP. He will likely need another BMP to rule out evidence of hypokalemia. He will continue to use daily weights and leg elevation as much as possible. Discharge Plan Discharge Plan Patient Disposition: Home Health Service Transfer to: [facility] Provider Discharge Comment: Stable for discharge home on oral diuretics. Cardiac echo was reassuring. We will increase dose to 60 daily for the next week with close primary care follow-up. I have given my cell phone number for any immediate questions. Discharge orders & Medications Prescriptions: New furosemide [Lasix] 40 mg tablet 60 mg PO DAILY Qty: 90 0RF Continued aspirin 81 MG tablet,delayed release (DR/EC) 81 mg PO DAILY Qty: 0 donepezil 5 mg tablet 5 mg PO BEDTIME Patient Comments: TAKE 1 TABLET BY MOUTH NIGHTLY mirtazapine 15 mg tablet 7.5 mg PO BEDTIME Patient Comments: TAKE 1/2 TABLET BY MOUTH NIGHTLY AT BEDTIME escitalopram oxalate 10 mg tablet 10 mg PO DAILY Patient Comments: TAKE ONE TABLET BY MOUTH ONE TIME DAILY rosuvastatin 20 mg tablet 20 mg PO BEDTIME Patient Comments: TAKE ONE TABLET BY MOUTH ONE TIME DAILY nystatin 100,000 unit/gram powder 1 applic topical BID Qty: 60 0RF Discontinued furosemide 20 mg tablet 20 mg PO DAILY Qty: 30 0RF Rx Instructions: may take an extra tablet if you notice weight gain Medication counseling provided by Pharmacist: No Follow up/Referrals: Campos Quintana MD [Primary Care Provider] - Diet/Activity/Treatments Diet: Low-sodium Activity: As tolerated, elevated legs as much as able until edema improved. Visit Report/Discharge Packet Instructions: DI for Heart Failure, DI for Dependent Edema, Low-Sodium Diet Stand Alone Forms: Congestive Heart Failure, Patient Portal/API Discharge Data Primary Care Provider: Campos Quintana Quality VTE Deep Vein Thrombosis/Pulmonary Embolism Present on Admission: No
--- NOTE | 2023-10-01 12:47 | CM.DPC ---
DCP Discharge Home with HH Per MD, pt is medically stable to d/c home today with HH and no identified barriers to discharge. TANG met bedside with pt and adult Dtr and they confirm they remain agreeable to HH but Dtr states pt recently had [facility] and they would be agreeable with [facility] again since pt and spouse knew a few of the HH staff but if [facility] does not have availability they would be happy with [facility]. TANG contacted [facility] and they are a few days out for [facility]. TANG provided family with [facility] brochure and Lesley kindly faxed F2F, HH orders, and discharge summary to [facility]. RN provided discharge instructions and Dtr provided transport home and confirms she assists as needed but Dtr does work realtime court reporter as well but her brother assists as well. FELTON Nice
== END 2023-10-01 12:30 | disposition home health service (06) | DRG 293 ==
LOC: ED 21:55 → AC 21:55
PROVIDERS: Hospitalist; Admitting Provider Internal Medicine; Emergency Provider Emergency Medicine; Family Provider Family Medicine; PCP Internal Medicine; Referring Provider Emergency Medicine; Visit Provider Internal Medicine
DX: I50.31 Acute diastolic (congestive) heart failure (principal); G30.9 Alzheimer's disease, unspecified; F02.80 Dementia in other diseases classified elsewhere, unspecified severity, without behavioral disturbance, psychotic disturbance, mood disturbance, and anxiety; E78.5 Hyperlipidemia, unspecified; N18.2 Chronic kidney disease, stage 2 (mild)
CPT/HCPCS: 36415; 71045; 71275; 80048; 80053; 82550; 83605; 83735; 83880; 84484; 85025; 85610; 85730; 93005; 93306; 93970; 96374; 97161; 99284; J1630; J1650; J1940; Q9967

== ENCOUNTER → 2023-10-30 16:51 | Outpatient (CLI) | payer MEDICARE, BC, SELFPAY ==
[2023-09-29 22:25] VITALS: BMI 45.2
[2023-10-30 19:08] LABS: BUN Creatinine Ratio 23.5 (6-22); Blood Urea Nitrogen 40 mg/dL (9-20); Calcium 8.6 mg/dL (8.4-10.2); Carbon Dioxide 24 mmol/L (22-32); Chloride 108 mmol/L (98-107); Estimated Glomerular Filt Rate 39 mL/min (>60); Glucose 100 mg/dL (80-110); HEMOLYSIS < 15 (0-50); Potassium 4.2 mmol/L (3.4-5.1); Sodium 141 mmol/L (137-145)
[2023-10-30 19:15] LABS: NT-proBNP (BNP-Adult 18+) 444 pg/mL (<450)
== END ==
PROVIDERS: Family Provider Family Medicine; PCP Internal Medicine; Referring Provider Internal Medicine Cardiovascular Disease; Visit Provider Internal Medicine Cardiovascular Disease
DX: I50.32 Chronic diastolic (congestive) heart failure (principal)
CPT/HCPCS: 36415; 80048; 83880

== ENCOUNTER → 2023-11-27 11:29 | Outpatient (CLI) | payer MEDICARE, BC, SELFPAY ==
[2023-09-29 22:25] VITALS: BMI 45.2
[2023-11-27 12:53] LABS: Hematocrit 41.8 % (41-53); Hemoglobin 14.2 g/dL (13.5-17.5); Mean Corpuscular Hemoglobin 30.4 PG (26-34); Mean Corpuscular Volume 89.6 fL (80-100); Platelet Count 192 X10^3/uL (150-400); Red Blood Cell Count 4.67 X10^6/uL (4.5-5.9); Red Cell Distribution Width 14.9 % (11.6-14.8); White Blood Cell Count 10.6 X10^3/uL (4.5-11.0)
[2023-11-27 13:30] LABS: BUN Creatinine Ratio 24.7 (6-22); Blood Urea Nitrogen 42 mg/dL (9-20); Carbon Dioxide 22 mmol/L (22-32); Chloride 106 mmol/L (98-107); Estimated Glomerular Filt Rate 39 mL/min (>60); Glucose 99 mg/dL (80-110); HEMOLYSIS < 15 (0-50); Potassium 4.5 mmol/L (3.4-5.1); Sodium 138 mmol/L (137-145)
[2023-11-27 13:39] LABS: NT-proBNP (BNP-Adult 18+) 532 pg/mL (<450)
== END ==
PROVIDERS: Family Provider Family Medicine; PCP Internal Medicine; Referring Provider Internal Medicine Cardiovascular Disease; Visit Provider Internal Medicine Cardiovascular Disease
DX: I50.32 Chronic diastolic (congestive) heart failure (principal)
CPT/HCPCS: 36415; 80048; 83880; 85027

== ENCOUNTER 2024-02-13 13:38 | Observation (INO) | payer MEDICARE, BC, SELFPAY ==
[2023-09-29 22:25] VITALS: BMI 45.2
[2024-02-13] VITALS (10 sets, daily range): BP systolic 92–160; BP diastolic 60–86; PULSE 87–102; RESP 18–25; TEMP 36.1–36.7; O2SAT 89–94; BMI 37.1; BMI 37.0
--- NOTE | 2024-02-13 13:45 | DI.CT.S_ITS ---
PROCEDURE: CT CERVICAL SPINE WO CON INDICATIONS: fall, facial trauma TECHNIQUE: Noncontrast 3 mm thick sections acquired from the skull base to the T4 level. Sagittal and coronal reformats were then constructed. For radiation dose reduction, the following was used: automated exposure control, adjustment of mA and/or kV according to patient size. COMPARISON: [facility], CT, CT CERVICAL SPINE WO CON, 01/23/2023, 13:37. FINDINGS: Image quality: Excellent. Bones: No fractures or dislocations. Visualized superior ribs are intact. Severe disc height loss at C3-4, C4-5, C5-6 and C6-7. Grade 1 anterolisthesis of C7 on T1 due to facet arthrosis. Diffuse facet arthrosis. Soft tissues: Prevertebral soft tissues are normal in thickness. No paravertebral hematomas. No apical pneumothoraces. IMPRESSION: No displaced fracture or traumatic subluxation. Severe, multilevel degenerative disc disease and diffuse facet arthrosis. Dictated by: Armand Perry M.D. on 02/13/2024 at 15:13 Approved by: Armand Perry M.D. on 02/13/2024 at 15:14
--- NOTE | 2024-02-13 13:45 | DI.CT.S_ITS ---
PROCEDURE: CT HEAD/BRAIN WO CON INDICATIONS: fall, facial trauma TECHNIQUE: Noncontrast 4.5 mm thick angled axial sections acquired from the foramen magnum to the vertex, with coronal and sagittal reformats. For radiation dose reduction, the following was used: automated exposure control, adjustment of mA and/or kV according to patient size. COMPARISON: [facility], CT, CT HEAD/BRAIN WO CON, 01/23/2023, 13:37. FINDINGS: Image quality: Diagnostic. CSF spaces: Basal cisterns are patent. No extra-axial fluid collections. The ventricles are symmetric in size and shape. Brain: No intracranial bleeds or masses. There is cerebral volume loss for age, with resultant ventricular and sulcal prominence. There are periventricular and deep white matter chronic small vessel ischemic changes. There is intracranial internal carotid artery atherosclerosis. Skull and face: Please see same day facial CT for further discussion regarding the nasal bone fractures. Anterior scalp contusion without underlying fracture. Sinuses: Visualized sinuses and mastoids are clear. IMPRESSION: No acute intracranial pathology. Scalp contusion without underlying fracture. Dictated by: Armand Perry M.D. on 02/13/2024 at 15:14 Approved by: Armand Perry M.D. on 02/13/2024 at 15:15
--- NOTE | 2024-02-13 13:45 | DI.CT.S_ITS ---
PROCEDURE: CT FACIAL BONES WO [facility] INDICATIONS: fall, facial trauma TECHNIQUE: Noncontrast 2.5 mm thick axial images acquired from the mandible through the frontal sinuses, with coronal and sagittal reformatting. For radiation dose reduction, the following was used: automated exposure control, adjustment of mA and/or kV according to patient size. COMPARISON: [facility], CT, CT FACIAL BONES WO CON, 01/23/2023, 13:37. FINDINGS: Image quality: Excellent. Bones and teeth: Orbital mosqueda are intact. Sinus mosqueda show no fracture or deformity. Comminuted nasal bone fractures. Leftward deviation of the nasal septum. Visualized portions of the mandible demonstrate no fractures or subluxation. Zygomatic arches are intact. Pterygoid plates are intact. Visualized portions of the skull base and auditory canals are intact. Sinuses: Air-fluid level in the right maxillary sinus. Remaining sinuses are clear. Soft tissues: Soft tissue edema surrounding the nose. Vascular: Visualized vascular structures appear normal in the absence of contrast. Bony vascular foramina and canals are intact. IMPRESSION: Comminuted nasal bone fractures with mild leftward deviation of the nasal septum. Dictated by: Armand Perry M.D. on 02/13/2024 at 15:10 Approved by: Armand Perry M.D. on 02/13/2024 at 15:12
--- NOTE | 2024-02-13 13:47 | DI.CT.S_ITS ---
PROCEDURE: CT CHEST WO CON INDICATIONS: choking episdoe, decreased oxygen sats TECHNIQUE: Noncontrast 5 mm thick sections acquired from the pulmonary apices to the posterior costophrenic angles. 1 mm lung window, 5 mm thick coronal and sagittal and 7 mm axial MIP reformats were then acquired. For radiation dose reduction, the following was used: automated exposure control, adjustment of mA and/or kV according to patient size. COMPARISON: None. FINDINGS: Image quality: Suboptimal due to motion artifact. Lower Neck: No enlarged lymph nodes. Thyroid: No thyroid nodules which require sonographic follow up, per consensus guidelines. Axillae: No enlarged lymph nodes. Chest Wall: Unremarkable. Bones: Unremarkable. Lungs and Pleura: No pneumothorax or pleural effusions. No consolidation or suspicious nodules. A few solid pulmonary micro nodules, index nodule measures 2 mm in the central right upper lobe (series 4, image 122). Heart: Heart size is mildly enlarged, extensive lad calcification. No pericardial effusion. Thoracic Vessels: The aorta and pulmonary arteries demonstrate normal size. Mediastinum and Laura: No enlarged lymph nodes. Esophagus: No wall thickening. Moderate hiatal hernia. Upper Abdomen: Visualized upper abdomen solid organs and bowel loops appear normal. IMPRESSION: No evidence aspiration pneumonia. Pulmonary micronodules. Consider 12 month follow-up if at high risk for developing lung cancer, per Fleischner Society guidelines. Dictated by: Armand Perry M.D. on 02/13/2024 at 15:16 Approved by: Armand Perry M.D. on 02/13/2024 at 15:18
[2024-02-13 14:14] LABS: Add Manual Diff / Slide Review NO; Basophils Absolute Auto 100 /uL (0-100); Basophils Percent Auto 0.6 % (0-2); Eosinophils Absolute Auto 200 /uL (0-450); Hematocrit 40.9 % (41-53); Hemoglobin 13.9 g/dL (13.5-17.5); Lymphocytes Absolute Auto 2800 /uL (1100-4500); Lymphocytes Percent Auto 30.1 % (25-40); Mean Corpuscular Hemoglobin 30.7 PG (26-34); Mean Corpuscular Volume 90.3 fL (80-100); Monocytes Absolute Auto 400 /uL (0-900); Monocytes Percent Auto 4.5 % (3-14); Neutrophils Absolute Auto 5700 /uL (1500-7000); Neutrophils Percent Auto 62.8 % (50-75); Platelet Count 175 X10^3/uL (150-400); Red Blood Cell Count 4.53 X10^6/uL (4.5-5.9); Red Cell Distribution Width 15.2 % (11.6-14.8); White Blood Cell Count 9.1 X10^3/uL (4.5-11.0)
--- NOTE | 2024-02-13 14:30 | ED.FALL ---
HPI - Fall General Chief Complaint: Trauma Stated Complaint: fall/ facial trauma Time Seen by Provider: 02/13/24 14:22 Source: EMS Mode of arrival: EMS History of Present Illness HPI Narrative: Patient brought in by ambulance from home. [id number] at bedside. is on the way here. Patient had ground level fall. Is not on any blood thinners. EMS report patient had a choking episode and lost his balance and fell on his face. Patient has history of dementia does not recall choking. He does recall getting off the table/kitchen table and losing his balance and falling on his face. Denies any other pain or injury. Has small laceration and edema to the nose. No oral injury. Denies any episode of chest pain dizziness headache abdominal pain dizziness shortness of breath. Patient in no distress. Related Data Home Medications Medication Instructions Recorded Confirmed aspirin 81 mg tablet,delayed 81 mg PO DAILY ##0 08/26/17 02/13/24 release donepezil 5 mg tablet 5 mg PO BEDTIME 07/02/21 02/13/24 escitalopram oxalate 10 mg tablet 10 mg PO DAILY 07/02/21 02/13/24 mirtazapine 15 mg tablet 7.5 mg PO BEDTIME 07/02/21 02/13/24 rosuvastatin 20 mg tablet 20 mg PO BEDTIME 07/02/21 02/13/24 Previous Rx's Medication Instructions Recorded nystatin 100,000 unit/gram topical 1 applic topical BID #60 grams 09/24/23 powder furosemide 40 mg tablet (Lasix) 60 mg (1.5 x 40 mg) PO DAILY #90 10/01/23 tabs Allergies Allergy/AdvReac Type Severity Reaction Status Date / Time ranitidine [RANITIDINE] Allergy Severe reaction Verified 02/13/24 19:29 not known. reported from Primary MD Review of Systems Review of Systems Narrative: GENERAL: negative chills, fatigue, malaise, fever, sweats. HEENT: negative sinus pain, ear pain, sore throat RESPIRATORY: negative dyspnea, cough CARDIOVASCULAR: negative chest pain, palpitations GASTROINTESTINAL: negative nausea, vomiting, abdominal pain : negative dysuria, frequency, hematuria MUSCULOSKELETAL: Positive muscle or bony pain SKIN: negative rash, skin lesions NEUROLOGIC: negative weakness, numbness, positive syncope ROS Unobtainable: All systems reviewed & are unremarkable except as noted in HPI and below Patient History Medical History COVID-19 Prostate cancer Hyperlipidemia No significant medical problems Surgical History History of herniorrhaphy H/O hemorrhoidectomy Hx of cholecystectomy Social History household members: spouse Smoking Status: Never smoker alcohol intake: current Smoking Status: Never smoker alcohol intake frequency: holidays/special occasions only Substance Use Type: does not use Exam Initial Vital Signs Initial Vital Signs: Vital Signs Temperature 98.1 F 02/13/24 13:45 Pulse Rate 101 H 02/13/24 13:45 Respiratory Rate 20 02/13/24 13:45 Blood Pressure 119/69 02/13/24 13:45 Pulse Oximetry 90 L 02/13/24 13:45 Oxygen Delivery Method Room Air 02/13/24 13:45 Procedures Laceration Repair Laceration 1: Time of procedure: 18:15 Site: other (Nose) Size (cm): 0.5 Description: linear Depth: simple, single layer Local Anesthetic: other anesthetic (Topical lidocaine/epinephrine) Pre-repair: wound explored, irrigated extensively and deep structures intact Skin layer closed with: other (Steri-Strips) Course Orders Ordered: Discontinued Medications Acetaminophen (Acetaminophen 325 Mg Tablet) 650 mg PO Q6H PRN PRN Reason: Fever/Mild Pain (1-3) Last Admin: 02/13/24 21:57 Dose: 650 mg Documented By: CHRISTOPHER Aspirin (Aspirin Ec 81 Mg Tablet) 81 mg PO DAILY BRAD Last Admin: 02/14/24 08:39 Dose: 81 mg Documented By: MM Atorvastatin Calcium (Atorvastatin 20 Mg Tablet) 40 mg PO BEDTIME BRAD Last Admin: 02/13/24 21:21 Dose: 40 mg Documented By: MP Diphtheria/Tetanus/Acell Pertussis (Tet,Diph,Pertuss(Acell),Vac/Pf 0.5 Ml Syringe) 0.5 ml IM .ONCE ONE Stop: 02/13/24 14:31 Last Admin: 02/13/24 14:50 Dose: 0.5 ml Documented By: ANGELA Donepezil HCl (Donepezil 5 Mg Tablet) 5 mg PO BEDTIME BRAD Last Admin: 02/13/24 21:21 Dose: 5 mg Documented By: CHRISTOPHER Escitalopram Oxalate (Escitalopram 10 Mg Tablet) 10 mg PO DAILY [facility] Last Admin: 02/14/24 08:39 Dose: 10 mg Documented By: DANYEL Hydromorphone HCl (Hydromorphone 0.5 Mg Inj) 0.5 mg IV Q2H PRN PRN Reason: Pain, Severe (7-10) Last Admin: 02/14/24 08:39 Dose: 0.5 mg Documented By: Admin: 02/13/24 23:48 Dose: 0.5 mg Documented By: HOANG Lidocaine/Prilocaine (Lidocaine/Prilocaine 5 Gm) 5 gm TOP NOW ONE Stop: 02/13/24 17:58 Last Admin: 02/13/24 18:38 Dose: 5 gm Documented By: GERSON Mirtazapine (Mirtazapine 15 Mg Tablet) 7.5 mg PO BEDTIME [facility] Last Admin: 02/13/24 21:22 Dose: 7.5 mg Documented By: HCRISTOPHER Naloxone HCl (Naloxone 0.4 Mg/Ml Vial) 0.2 mg IV Q2MIN PRN PRN Reason: Opiate Reversal Ondansetron HCl (Ondansetron 4 Mg/2 Ml Inj) 4 mg IV Q8HR PRN PRN Reason: Nausea And Vomiting Oxycodone HCl (Oxycodone Ir 5 Mg Tablet) 5 mg PO Q4HR PRN PRN Reason: Pain, Moderate (4-6) Last Admin: 02/14/24 14:46 Dose: 5 mg Documented By: DANYEL Sodium Chloride (Sodium Chloride 0.9% Flush) 10 ml IV PRN PRN PRN Reason: Flush Sodium Chloride (Sodium Chloride 0.9% Flush) 10 ml IV BID [facility] Last Admin: 02/14/24 08:40 Dose: 10 ml Documented By: DANYEL Vital Signs Vital signs: Vital Signs - 8 hr 02/13/24 13:45 02/13/24 15:26 02/13/24 15:54 Temperature 98.1 F Pulse Rate 101 H 102 H 99 H Respiratory Rate 20 18 18 Blood Pressure 119/69 102/63 94/67 Pulse Oximetry 90 L 91 93 Oxygen Delivery Method Room Air Room Air 02/13/24 16:03 Temperature Pulse Rate 98 H Respiratory Rate 18 Blood Pressure 108/70 Pulse Oximetry 93 Oxygen Delivery Method Room Air MDM - Fall Lab Data 02/14/24 06:40 02/14/24 06:40 Labs: Lab Results 02/13/24 02/13/24 02/13/24 Range/Units 14:00 15:00 18:05 WBC 9.1 (4.5-11.0) X10^3/uL RBC 4.53 (4.5-5.9) X10^6/uL Hgb 13.9 (13.5-17.5) g/dL Hct 40.9 L (41-53) % MCV 90.3 (80-100) fL MCH 30.7 (26-34) PG MCHC 34.0 (30-36) % RDW 15.2 H (11.6-14.8) % Plt Count 175 (150-400) X10^3/uL Neut % (Auto) 62.8 (50-75) % Lymph % (Auto) 30.1 (25-40) % Steele % (Auto) 4.5 (3-14) % Eos % (Auto) 2.0 (2-4) % Baso % (Auto) 0.6 (0-2) % Neut # (Auto) 5700 (1677-4258) /uL Lymph # (Auto) 2800 (9044-9867) /uL Steele # (Auto) 400 (0-900) /uL Eos # (Auto) 200 (0-450) /uL Baso # (Auto) 100 (0-100) /uL Sodium 138 (137-145) mmol/L Potassium 4.9 (3.4-5.1) mmol/L Chloride 105 (98-107) mmol/L Carbon Dioxide 27 (22-32) mmol/L BUN 35 H (9-20) mg/dL Creatinine 1.63 H (0.66-1.25) mg/dL Estimated GFR 41 L (>60) mL/min BUN/Creatinine Ratio 21.5 (6-22) Glucose 108 (80-110) mg/dL Calcium 9.6 (8.4-10.2) mg/dL Total Bilirubin 0.7 (0.2-1.3) mg/dL AST 28 (17-59) IU/L ALT 23 (<50) IU/L Alkaline Phosphatase 110 (38-126) U/L Total Creatine Kinase 82 (55-170) U/L Troponin I 0.037 H 0.048 H (0.01-0.034) ng/mL Total Protein 6.9 (6.3-8.2) g/dL Albumin 4.0 (3.5-5.0) g/dL Globulin 2.9 (1.7-4.1) g/dL Albumin/Globulin Ratio 1.4 (1.0-2.8) Point of Care Testing Glucose POC 110 Urine Dip Bedside Urine Glucose Negative Bedside Urine Bilirubin - Negative Bedside Urine Ketone - Negative Urine Specific [place] 1.015 Bedside Urine Occult Blood - Negative Bedside Urine pH 5.5 Bedside Urine Protein - Negative Bedside Urine Urobilinogen - Negative Bedside Urine Nitrite - Negative Bedside Urine Leukocytes - Negative Esterase [facility] Narrative Medical decision making narrative: Patient brought in by ambulance from home. [id number] at bedside. is on the way here. Patient had ground level fall. Is not on any blood thinners. EMS report patient had a choking episode and lost his balance and fell on his face. Patient has history of dementia does not recall choking. He does recall getting off the table/kitchen table and losing his balance and falling on his face. Denies any other pain or injury. Has small laceration and edema to the nose. No oral injury. Denies any episode of chest pain dizziness headache abdominal pain dizziness shortness of breath. Patient in no distress. After history and exam CT head face cervical spine chest [facility] Medical records reviewed: No recent visit for this complaint Differential considered: Includes but not limited to facial fracture nasal fracture facial contusion intracranial bleed cervical strain Lab Test results independently reviewed as above. Pertinent findings: WBC 9.1 hemoglobin 13.9 hematocrit 40.9 platelets 175 Sodium 138 potassium 4.9 BUN 35 creatinine 1.63 GFR 41 troponin 0.037 Imaging studies independently reviewed: CT head CT cervical spine CT chest no acute finding CT facial bone nasal fracture Consultations: 6:00 p.m.. Spoke with Cardiology, Dr. Harding, works with Dr. Aguiar, at this time no heparin, patient never had chest pain. This is nonspecific troponin would recommend observation serial enzymes and echocardiogram in the morning. No aspirin indicated at this time. 6:10 p.m.. Spoke with hospitalist, Dr. Torrez, who will admit patient. For nose fracture patient to follow up with Dr. Ji Jefferson with Otolaryngology when patient gets discharge. Patient will need echocardiogram and serial cardiac enzymes. Treatments: Tdap Re-evaluations: 6:00 p.m.. Updated family, daughter at bedside, patient had similar episode a few years ago with a fall and elevated troponin. He was watched overnight. No stress test. He does see Dr. Aguiar with Cardiology for possible CHF history. They do agree for admission. Discussion: Appropriate for admission for observation for serial troponin echocardiogram in the morning. Diagnosis: Nasal fracture elevated troponin 6:[address] Lew: Sign out to Dr. Roy. Patient has been admitted. However small skin laceration on the nose needs to be closed with Dermabond. Medication still needs to be placed in the nose for hemostasis. Discharge Plan Departure Patient Disposition: Admitted as Observation Clinical Impression: Elevated troponin, Syncope and collapse Closed fracture nasal bone Qualifiers: Encounter type: initial encounter Qualified Code(s): S02.2XXA - Fracture of nasal bones, initial encounter for closed fracture Admit Date/Time: 02/13/24 18:10 Admit Provider: Harshal Torrez V
[2024-02-13] MEDS: TET,DIPH,PERTUSS(ACELL),VAC/PF 0.5 ML SYRINGE IM (14:50)
[2024-02-13 15:23] LABS: Alanine Aminotransferase 23 IU/L (<50); Albumin Globulin Ratio 1.4 (1.0-2.8); Alkaline Phosphatase 110 U/L (38-126); Aspartate Aminotransferase 28 IU/L (17-59); BUN Creatinine Ratio 21.5 (6-22); Bilirubin Total 0.7 mg/dL (0.2-1.3); Blood Urea Nitrogen 35 mg/dL (9-20); Calcium 9.6 mg/dL (8.4-10.2); Carbon Dioxide 27 mmol/L (22-32); Chloride 105 mmol/L (98-107); Estimated Glomerular Filt Rate 41 mL/min (>60); Globulin 2.9 g/dL (1.7-4.1); Glucose 108 mg/dL (80-110); HEMOLYSIS < 15 (0-50); Potassium 4.9 mmol/L (3.4-5.1); Sodium 138 mmol/L (137-145); Total Protein 6.9 g/dL (6.3-8.2)
--- NOTE | 2024-02-13 16:16 | EKG_ITS ---
[place] [address] [place] [id number] Test Date: 2024-02-13 Pat Name: Geovanni Bullock Department: [facility] Room: Gender: Male [employer]: MEGAN : 1935 Requested By: Order Number: [id number] Reading MD: Jl Jefferson Measurements Intervals [place] Rate: 97 P: 14 MS: 192 QRS: -84 QRSD: 148 T: 10 QT: 390 QTc: 495 Interpretive Statements Sinus rhythm with fusion complexes Right bundle branch block Left anterior fascicular block Bifascicular block Septal infarct , age undetermined Electronically Signed On 02-14-2024 9:27:38 PDT by Jl Jefferson
[2024-02-13 16:30] LABS: Creatine Kinase 82 U/L (55-170)
[2024-02-13 16:43] LABS: Troponin I 0.037 ng/mL (0.01-0.034)
--- NOTE | 2024-02-13 17:42 | PC.NURSE ---
Vitals printed from monitor and placed in medical records.
--- NOTE | 2024-02-13 18:21 | P.HP_ITS ---
History of Present Illness History of Present Illness Date Patient Seen: 02/13/24 Time Patient Seen: 18:25 Chief complaint: fall/ facial trauma Narrative: 88-year-old man under the primary care of Dr. Remington Quintana was at home today when he experienced a coughing versus choking fit, turning red, then blue according to his , then patching forward and hitting his nose and face on the kitchen table. There was no apparent loss of consciousness. He was brought by paramedics to the emergency department for further evaluation. He is seen with his daughter Latoya at bedside who notes that he has recently had congestive heart failure issues and low blood pressures, with variable adjustments in his diuretics. 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 His cardiac troponin was mildly elevated in the emergency department. He has a history of a non STEMI 2 years ago when he presented with COVID. He denies chest pain or shortness of breath O exam is otherwise limited due to short-term memory impairment. Echocardiogram 09/29/2023: The study quality was technically difficult. There is mild-moderate concentric left ventricular hypertrophy. The ejection fraction is estimated to be 55-60%. Diastolic function could not be accurately assessed due to unobtainable data. The right ventricle is not well visualized. There is mild aortic regurgitation. Pulmonary artery pressures cannot be estimated because of the lack of a measurable TR jet velocity. [facility] Medical History COVID-19 Prostate cancer Hyperlipidemia No significant medical problems Surgical History History of herniorrhaphy H/O hemorrhoidectomy Hx of cholecystectomy Social History household members: spouse Smoking Status: Never smoker alcohol intake: never Meds Home Medications and Allergies Home Medications Medication Instructions Recorded Confirmed Type aspirin 81 mg tablet,delayed 81 mg PO DAILY ##0 08/26/17 09/29/23 History release donepezil 5 mg tablet 5 mg PO BEDTIME 07/02/21 09/29/23 History escitalopram oxalate 10 mg tablet 10 mg PO DAILY 07/02/21 09/29/23 History mirtazapine 15 mg tablet 7.5 mg PO BEDTIME 07/02/21 09/29/23 History rosuvastatin 20 mg tablet 20 mg PO BEDTIME 07/02/21 09/29/23 History nystatin 100,000 unit/gram topical 1 applic topical BID #60 grams 09/24/23 09/29/23 Rx powder furosemide 40 mg tablet (Lasix) 60 mg (1.5 x 40 mg) PO DAILY #90 10/01/23 Rx tabs Allergies Allergy/AdvReac Type Severity Reaction Status Date / Time ranitidine [RANITIDINE] Allergy Severe reaction Verified 09/29/23 18:28 not known. reported from Primary MD Review of Systems Review of Systems ROS: Yes All systems reviewed with the patient and are negative except as otherwise documented Exam Vital Signs (past 8 hours): - 02/13/24 13:45 02/13/24 15:26 02/13/24 15:54 Temperature 98.1 F Pulse Rate 101 H 102 H 99 H Respiratory Rate 20 18 18 Blood Pressure 119/69 102/63 94/67 Pulse Oximetry 90 L 91 93 Oxygen Delivery Method Room Air Room Air 02/13/24 16:03 Temperature Pulse Rate 98 H Respiratory Rate 18 Blood Pressure 108/70 Pulse Oximetry 93 Oxygen Delivery Method Room Air Oxygen Delivery Method Room Air Narrative Exam Narrative: GENERAL: This is a well-nourished, well-developed patient, in no apparent distress, with a dressing on his nose. HEAD: Nasal dressing in place. No temporal or scalp tenderness. EYES: Pupils equal round and reactive. Extraocular motions intact. No scleral icterus. No injection or drainage. ENT: Mucous membranes pink and moist. NECK: Supple, nontender, no meningeal signs. CARDIOVASCULAR: Regular rate and rhythm without murmurs, gallops, or rubs. RESPIRATORY: Bibasilar crackles, otherwise clear to auscultation. GASTROINTESTINAL: Abdomen soft, non-tender, nondistended. EXTREMITIES: Trace calf edema. BACK: Nontender without deformity or crepitance. No flank tenderness. NEUROLOGIC: Alert, oriented, speech fluent, full upper and lower motor strength, no focal deficits evident. DERMATOLOGIC: No rashes or skin lesions. Objective ECG Impression: Sinus rhythm with fusion complexes Right bundle branch block Left anterior fascicular block Bifascicular block Septal infarct , age undetermined Imaging : Radiologist's impression: Cervical spine CT: No displaced fracture or traumatic subluxation. Severe, multilevel degenerative disc disease and diffuse facet arthrosis. Face CT: Comminuted nasal bone fractures with mild leftward deviation of the nasal septum. Head CT: No acute intracranial pathology. Scalp contusion without underlying fracture. Chest CT: No evidence aspiration pneumonia. Pulmonary micronodules. Consider 12 month follow-up if at high risk for developing lung cancer, per Fleischner Society guidelines. Labs 02/13/24 14:00 02/13/24 15:00 Labs: Laboratory Results - last 24 hr 02/13/24 02/13/24 14:00 15:00 WBC 9.1 RBC 4.53 Hgb 13.9 Hct 40.9 L MCV 90.3 MCH 30.7 MCHC 34.0 RDW 15.2 H Plt Count 175 Neut % (Auto) 62.8 Lymph % (Auto) 30.1 [place] % (Auto) 4.5 Eos % (Auto) 2.0 Baso % (Auto) 0.6 Neut # (Auto) 5700 Lymph # (Auto) 2800 [place] # (Auto) 400 Eos # (Auto) 200 Baso # (Auto) 100 Sodium 138 Potassium 4.9 Chloride 105 Carbon Dioxide 27 BUN 35 H Creatinine 1.63 H Estimated GFR 41 L BUN/Creatinine Ratio 21.5 Glucose 108 Calcium 9.6 Total Bilirubin 0.7 AST 28 ALT 23 Alkaline Phosphatase 110 Total Creatine Kinase 82 Troponin I 0.037 H Total Protein 6.9 Albumin 4.0 Globulin 2.9 Albumin/Globulin Ratio 1.4 Assessment & Plan Assessment & Plan narrative: 1. Syncope, possibly vasovagal following coughing/choking episode. Observe on telemetry. 2. Nasal fracture. Management per my urgency department prior to transfer to the floor. Anticipate non operative management with post hospitalization ENT follow-up. 3. Elevated troponin. Rule out non STEM I. He is asymptomatic. Monitor with serial cardiac enzymes on telemetry. 4. Chronic diastolic congestive heart failure. Appears compensated at this point. Hold furosemide at this point following syncope and recently reported low blood pressures. Follow clinically. 5. Chronic kidney disease stage IIIB. Appears stable. 6. Dementia. Notable with progressive fecal and urinary incontinence and difficulty managing at home as a result. Continue donepezil. 7. Hyperlipidemia. Continue rosuvastatin. 8. Depression. Continue mirtazapine and escitalopram. 9. DVT prophylaxis. Place sequential compression devices. Avoid anticoagulants given nasal fracture and bleeding. 10. Code status: Do not resuscitate. Patient's daughter Latoya clearly states that he has a pulsed form stating this advance directive/code status. Plan: -admit to observation -serial cardiac enzymes -continue routine home medications except hold furosemide -social service assistant/discharge planning consult -possible discharge home tomorrow if medically stable Time-Based Coding :: [TOTAL MINUTES] spent with patient and on the chart (including review of chart, obtaining history, exam, reviewing outside data, placing orders, documenting exam and treatment plan, and counseling patient) on [DATE]. Quality MIPS - Admit I confirm the patient?s Advance Care Plan is present, Code status is documented, Surrogate decision maker is in patient?s record [If Yes, STOP here]: Yes MIPS - Meds 'Current medications' to include all prescriptions, [id number] products, herbals, cannabis/cannabidiol products, and vitamin/mineral/dietary (nutritional) supplements. I have utilized all available resources to obtain, update, or review the patient?s current medications. [If Yes, STOP here]: Yes PROFEE Charge Codes Initial inpatient/observation care: 47240 Lab Results Common Lab Results- Last: 2 White Blood Count 9.1 X10^3/uL (4.5-11.0) 02/13/24 Red Blood Count 4.53 X10^6/uL (4.5-5.9) 02/13/24 Hemoglobin 13.9 g/dL (13.5-17.5) 02/13/24 Hematocrit 40.9 % (41-53) L 02/13/24 Mean Corpuscular Volume 90.3 fL (80-100) 02/13/24 Mean Corpuscular Hemoglobin 30.7 PG (26-34) 02/13/24 Mean Corpuscular Hemoglobin Concent 34.0 % (30-36) 02/02 06/27 Red Cell Distribution Width 15.2 % (11.6-14.8) H 02/13/24 Platelet Count 175 X10^3/uL (150-400) 02/13/24 Neutrophils (%) (Auto) 62.8 % (50-75) 02/13/24 Lymphocytes (%) (Auto) 30.1 % (25-40) 02/13/24 Monocytes (%) (Auto) 4.5 % (3-14) 02/13/24 Eosinophils (%) (Auto) 2.0 % (2-4) 02/13/24 Basophils (%) (Auto) 0.6 % (0-2) 02/13/24 Neutrophils # (Auto) 5700 /uL (4293-8315) 02/13/24 Sodium Level 138 mmol/L (137-145) 02/13/24 Potassium Level 4.9 mmol/L (3.4-5.1) 02/13/24 Chloride Level 105 mmol/L (98-107) 02/13/24 Carbon Dioxide Level 27 mmol/L (22-32) 02/13/24 Blood Urea Nitrogen 35 mg/dL (9-20) H 02/13/24 Creatinine 1.63 mg/dL (0.66-1.25) H 02/13/24 Estimat Glomerular Filtration Rate 41 mL/min (>60) L 02/12 BUN/Creatinine Ratio 21.5 (6-22) 02/13/24 Glucose Level 108 mg/dL (80-110) 02/13/24 Calcium Level 9.6 mg/dL (8.4-10.2) 02/13/24 Total Bilirubin 0.7 mg/dL (0.2-1.3) 02/13/24 Aspartate Amino Transf (AST/SGOT) 28 IU/L (17-59) Alanine Aminotransferase (ALT/SGPT) 23 IU/L (<50) 02/02 06/27 Alkaline Phosphatase 110 U/L (38-126) 02/13/24 Total Protein 6.9 g/dL (6.3-8.2) 02/13/24 Albumin 4.0 g/dL (3.5-5.0) 02/13/24 Globulin 2.9 g/dL (1.7-4.1) 02/13/24 Albumin/Globulin Ratio 1.4 (1.0-2.8) 02/13/24 Triglycerides Level 66 mg/dL (35-150) 07/04/21 Cholesterol Level 83 mg/dL (140-199) L 07/04/21 HDL Cholesterol 33 mg/dL (40-60) L 07/04/21 LDL Cholesterol, Calculated 37 mg/dL (<100) 07/04/21 Alanine Aminotransferase (ALT/SGPT) 23 IU/L (<50) 02/02 06/27 Hemoglobin A1c 5.4 % (4.0-6.0) 07/03/21 Aspartate Amino Transf (AST/SGOT) 28 IU/L (17-59) Blood Urea Nitrogen 35 mg/dL (9-20) H 02/13/24 Creatinine 1.63 mg/dL (0.66-1.25) H 02/13/24 Estimat Glomerular Filtration Rate 41 mL/min (>60) L 02/12 BUN/Creatinine Ratio 21.5 (6-22) 02/13/24 Anti-Nuclear Antibody (LAB) Negative (.) 07/03/21 Cholesterol Level 83 mg/dL (140-199) L 07/04/21 Hemoglobin 13.9 g/dL (13.5-17.5) 02/13/24 Red Blood Count 4.53 X10^6/uL (4.5-5.9) 02/13/24 Hematocrit 40.9 % (41-53) L 02/13/24 Hepatitis C Antibody <0.1 s/co ratio (0.0-0.9) 07/03/21 Lipase 107 U/L (23-300) 09/24/23 Platelet Count 175 X10^3/uL (150-400) 02/13/24 Prothrombin Time 11.7 SECONDS (9.4-12.5) 09/29/23 Prothromb Time International Ratio 1.0 (0.9-1.3) 09/28 Vitamin B12 Level 434 pg/mL (239-931) 07/03/21
[2024-02-13] MEDS: LIDOCAINE/PRILOCAINE 5 GM TOP (18:38)
--- NOTE | 2024-02-13 19:00 | EKG_ITS ---
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
--- NOTE | 2024-02-13 19:03 | DI.ECHO.S_ITS ---
[facility] : : [address] : [place] : : [address] : : Phone: [phone] Echocardiogram Report + + :Name: BEBETO COYLE Study Date: 02/14/2024 Height: 66.5 in: :[facility] ReadingLocation: Weight: 228 lb : : Gender: Male BSA: 2.1 m2 : :: 1935 Age: 88 yrs BP: 110/63 mmHg: :Reason For Study: NONSTEMI : :Ordering Physician: MEGHANA, : :SVETLANA Performed By: Lindsay Woods : :Referring: SVETLANA KOWALSKI : + + Interpretation Summary The left ventricle is normal in size. There is moderate concentric left ventricular hypertrophy. The left ventricular ejection fraction is normal. The ejection fraction is estimated to be 60-65%. Previous LVEF 55 to 60%. Procedure: Images were not obtained from all of the standard acoustic windows due to the limited scope of the study. The study quality was technically adequate. Comparison is made with the echocardiogram of 09/30/2023. The patient was in sinus rhythm with heart rates between 73-82 bpm during the exam. Left Ventricle: The left ventricle is normal in size. There is moderate concentric left ventricular hypertrophy. There is no thrombus. The ejection fraction is estimated to be 60-65%. The left ventricular ejection fraction is normal. There are no focal wall motion abnormalities. Pericardium/ Pleura There is no pericardial effusion. There is an anterior echo-free space consistent with a fat pad. There is no pleural effusion. MMode/2D Measurements & Calculations LVIDd: 4.0 cm LVIDs: 2.9 cm FS: 28.8 % IVSd: 1.6 cm LVPWd: 1.5 cm LV garcia. diameter/BSA (cm/m^2): 1.9 LV sys. diameter/BSA (cm/m^2): 1.4 Reading Physician:01:20 PM
[2024-02-13 20:04] LABS: Troponin I 0.048 ng/mL (0.01-0.034)
[2024-02-13] MEDS: ATORVASTATIN 20 MG TABLET 40 MG PO (21:21)
[2024-02-13] MEDS: DONEPEZIL 5 MG TABLET PO (21:21)
[2024-02-13] MEDS: MIRTAZAPINE 15 MG TABLET 7.5 MG PO (21:22)
[2024-02-13] MEDS: ACETAMINOPHEN 325 MG TABLET 650 MG PO (21:57)
[2024-02-13] MEDS: HYDROMORPHONE 0.5 MG INJ IV (23:48)
[2024-02-14] VITALS: BP 100/59; PULSE 80; TEMP 36; O2SAT 91
[2024-02-14 03:12] VITALS: PULSE 80; O2SAT 92
[2024-02-14 03:41] LABS: Troponin I 0.074 ng/mL (0.01-0.034)
[2024-02-14 04:00] VITALS: BP 110/63; PULSE 78; RESP 20; TEMP 36.2; O2SAT 93
--- NOTE | 2024-02-14 04:40 | P.HP_ITS ---
<Statement entered by Fan Alarcon MD - 02/14/24 06:46> Entered in error
[2024-02-14 06:51] LABS: Add Manual Diff / Slide Review NO; Basophils Absolute Auto 100 /uL (0-100); Basophils Percent Auto 0.7 % (0-2); Eosinophils Absolute Auto 100 /uL (0-450); Eosinophils Percent Auto 0.6 % (2-4); Hematocrit 41.2 % (41-53); Hemoglobin 13.9 g/dL (13.5-17.5); Lymphocytes Absolute Auto 4200 /uL (1100-4500); Lymphocytes Percent Auto 38.9 % (25-40); Mean Corpuscular HGB Conc 33.8 % (30-36); Mean Corpuscular Hemoglobin 30.6 PG (26-34); Mean Corpuscular Volume 90.5 fL (80-100); Monocytes Absolute Auto 500 /uL (0-900); Monocytes Percent Auto 5.1 % (3-14); Neutrophils Absolute Auto 5800 /uL (1500-7000); Neutrophils Percent Auto 54.7 % (50-75); Platelet Count 172 X10^3/uL (150-400); Red Blood Cell Count 4.55 X10^6/uL (4.5-5.9); Red Cell Distribution Width 15.6 % (11.6-14.8); White Blood Cell Count 10.7 X10^3/uL (4.5-11.0)
[2024-02-14 07:18] LABS: BUN Creatinine Ratio 21.9 (6-22); Blood Urea Nitrogen 33 mg/dL (9-20); Calcium 9.6 mg/dL (8.4-10.2); Carbon Dioxide 20 mmol/L (22-32); Chloride 106 mmol/L (98-107); Estimated Glomerular Filt Rate 45 mL/min (>60); Glucose 118 mg/dL (80-110); HEMOLYSIS < 15 (0-50); Potassium 4.4 mmol/L (3.4-5.1); Sodium 136 mmol/L (137-145)
[2024-02-14 08:00] VITALS: BP 122/79; PULSE 84; RESP 21; TEMP 35.8; O2SAT 94
[2024-02-14] MEDS: ASPIRIN EC 81 MG TABLET PO (08:39)
[2024-02-14] MEDS: ESCITALOPRAM 10 MG TABLET PO (08:39)
[2024-02-14] MEDS: HYDROMORPHONE 0.5 MG INJ IV (08:39)
[2024-02-14] MEDS: SODIUM CHLORIDE 0.9% FLUSH 10 ML IV (08:40)
[2024-02-14 11:53] LABS: Troponin I 0.071 ng/mL (0.01-0.034)
[2024-02-14 12:00] VITALS: BP 119/78; PULSE 85; RESP 21; TEMP 36.2; O2SAT 93
--- NOTE | 2024-02-14 13:49 | P.DS_ITS ---
History of Present Illness History of Present Illness Date Patient Seen: 02/13/24 Time Patient Seen: 18:25 Chief complaint: fall/ facial trauma Narrative: 88-year-old man under the primary care of Dr. Remington Quintana was at home today when he experienced a coughing versus choking fit, turning red, then blue according to his , then patching forward and hitting his nose and face on the kitchen table. There was no apparent loss of consciousness. He was brought by paramedics to the emergency department for further evaluation. He is seen with his daughter Alicia at bedside who notes that he has recently had congestive heart failure issues and low blood pressures, with variable adjustments in his diuretics. 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 His cardiac troponin was mildly elevated in the emergency department. He has a history of a non STEMI 2 years ago when he presented with COVID. He denies chest pain or shortness of breath O exam is otherwise limited due to short-term memory impairment. Echocardiogram 09/29/2023: The study quality was technically difficult. There is mild-moderate concentric left ventricular hypertrophy. The ejection fraction is estimated to be 55-60%. Diastolic function could not be accurately assessed due to unobtainable data. The right ventricle is not well visualized. There is mild aortic regurgitation. Pulmonary artery pressures cannot be estimated because of the lack of a measurable TR jet velocity. Discharge Providers Provider Date of admission: 02/13/24 18:10 Discharge Date: 02/14/24 Primary care physician: Campos Quintana MD Consults: 02/13/24 19:02 Consult to Discharge Planning Routine Comment: 02/14/24 09:43 Consult to Speech Therapy Evaluate & Treat Comment: Physician Instructions: Evaluate and treat Discharge provider: Amandeep Angeles MD Summary Hospital Course Discharge Diagnosis: 1. Syncope, possibly vasovagal following coughing/choking episode. Observe on telemetry. 2. Nasal fracture. Management per my urgency department prior to transfer to the floor. Anticipate non operative management with post hospitalization ENT follow-up. 3. Elevated troponin. Rule out non STEM I. He is asymptomatic. Monitor with serial cardiac enzymes on telemetry. 4. Chronic diastolic congestive heart failure. Appears compensated at this point. Hold furosemide at this point following syncope and recently reported low blood pressures. Follow clinically. 5. Chronic kidney disease stage IIIB. Appears stable. 6. Dementia. Notable with progressive fecal and urinary incontinence and difficulty managing at home as a result. Continue donepezil. 7. Hyperlipidemia. Continue rosuvastatin. 8. Depression. Continue mirtazapine and escitalopram. 9. DVT prophylaxis. Place sequential compression devices. Avoid anticoagulants given nasal fracture and bleeding. 10. Code status: Do not resuscitate. Patient's daughter Alicia clearly states that he has a pulsed form stating this advance directive/code status. Hospital Course: ecg showed no new ischemic changes, echo showed no wall motion abnormalities, no chest. patient was discharged home in stable condition Exam Vital Signs (past 8 hours): - 02/14/24 08:00 02/14/24 12:00 Temperature 96.4 F L 97.1 F L Pulse Rate 84 85 Respiratory Rate 21 21 Blood Pressure 122/79 119/78 Pulse Oximetry 94 93 Oxygen Flow Rate 2 2 Fraction of Inspired Oxygen 28 SaO2/FiO2 Ratio 328 Oxygen Delivery Method Nasal Cannula Oxygen Flow Rate 2 Narrative Exam Narrative: gen: not in distress trauma noted to nose lung: normal effort, CTA B/L cardio: RRR abd: soft extrem: moving all limbs Objective Labs 02/14/24 06:40 02/14/24 06:40 Labs: Laboratory Results - last 24 hr 02/13/24 02/13/24 02/13/24 14:00 15:00 18:05 WBC 9.1 RBC 4.53 Hgb 13.9 Hct 40.9 L MCV 90.3 MCH 30.7 MCHC 34.0 RDW 15.2 H Plt Count 175 Neut % (Auto) 62.8 Lymph % (Auto) 30.1 [place] % (Auto) 4.5 Eos % (Auto) 2.0 Baso % (Auto) 0.6 Neut # (Auto) 5700 Lymph # (Auto) 2800 [place] # (Auto) 400 Eos # (Auto) 200 Baso # (Auto) 100 Sodium 138 Potassium 4.9 Chloride 105 Carbon Dioxide 27 BUN 35 H Creatinine 1.63 H Estimated GFR 41 L BUN/Creatinine Ratio 21.5 Glucose 108 Calcium 9.6 Total Bilirubin 0.7 AST 28 ALT 23 Alkaline Phosphatase 110 Total Creatine Kinase 82 Troponin I 0.037 H 0.048 H Total Protein 6.9 Albumin 4.0 Globulin 2.9 Albumin/Globulin Ratio 1.4 02/14/24 02/14/24 02/14/24 03:07 06:40 11:12 WBC 10.7 RBC 4.55 Hgb 13.9 Hct 41.2 MCV 90.5 MCH 30.6 MCHC 33.8 RDW 15.6 H Plt Count 172 Neut % (Auto) 54.7 Lymph % (Auto) 38.9 [place] % (Auto) 5.1 Eos % (Auto) 0.6 L Baso % (Auto) 0.7 Neut # (Auto) 5800 Lymph # (Auto) 4200 [place] # (Auto) 500 Eos # (Auto) 100 Baso # (Auto) 100 Sodium 136 L Potassium 4.4 Chloride 106 Carbon Dioxide 20 L BUN 33 H Creatinine 1.51 H Estimated GFR 45 L BUN/Creatinine Ratio 21.9 Glucose 118 H Calcium 9.6 Total Bilirubin AST ALT Alkaline Phosphatase Total Creatine Kinase Troponin I 0.074 H 0.071 H Total Protein Albumin Globulin Albumin/Globulin Ratio [facility] Medical History COVID-19 Prostate cancer Hyperlipidemia No significant medical problems Surgical History History of herniorrhaphy H/O hemorrhoidectomy Hx of cholecystectomy Social History household members: spouse Smoking Status: Never smoker alcohol intake: current Discharge Assessment & Plan Assessment and Plan Assessment: non-mi troponin elevation nasal fracture Plan of Treatment: outpatient ent continue home meds Discharge Plan Discharge Plan Patient Disposition: Home Provider Discharge Comment: Stable for discharge Discharge orders & Medications Prescriptions: Continued aspirin 81 MG tablet,delayed release (DR/EC) 81 mg PO DAILY Qty: 0 furosemide [Lasix] 40 mg tablet 60 mg PO DAILY Qty: 90 0RF Patient Comments: PER DAUGHTER ALICIA Rx Instructions: take 2 tablets on MWF donepezil 5 mg tablet 5 mg PO BEDTIME Patient Comments: TAKE 1 TABLET BY MOUTH NIGHTLY mirtazapine 15 mg tablet 7.5 mg PO BEDTIME Patient Comments: TAKE 1/2 TABLET BY MOUTH NIGHTLY AT BEDTIME escitalopram oxalate 10 mg tablet 10 mg PO DAILY Patient Comments: TAKE ONE TABLET BY MOUTH ONE TIME DAILY rosuvastatin 20 mg tablet 20 mg PO BEDTIME Patient Comments: TAKE ONE TABLET BY MOUTH ONE TIME DAILY nystatin 100,000 unit/gram powder 1 applic topical BID Qty: 60 0RF Follow up/Referrals: Campos Quintana MD [Primary Care Provider] - Visit Report/Discharge Packet Stand Alone Forms: Congestive Heart Failure, Patient Portal/API, Stroke Signs & Symptoms Discharge Data Primary Care Provider: Campos Quintana Attending Provider: Harshal Torrez V Admit Date/Time: 02/13/24 18:10 Quality VTE Deep Vein Thrombosis/Pulmonary Embolism Present on Admission: No
[2024-02-14] MEDS: OXYCODONE IR 5 MG TABLET PO (14:46)
--- NOTE | 2024-02-14 15:24 | ST.IPCSEOM ---
Visit Care Team Role Provider Type Campos Quintana MD Primary Care Provider Non-Staff Specialty: Internal Medicine Address: [facility] [address], [place], [address] Email: Axel Purvis MD Family Provider Non-Staff Specialty: Medical Address: [facility] [address], [place], [address] Email: Campos Lew MD Emergency Provider Physician Referring Provider Specialty: Emergency Medicine Address: [address] [place] [address], [id number] Email: [email or web address] Harshal Torrez MD Admit Provider Physician Attending Provider Specialty: Internal Medicine Address: [address] [place] [address], [facility] Email: [email or web address] Past Medical History (Last Reviewed 02/13/24 @ 18:21 by Harshal Torrez MD) COVID-19 (Medical) June 2021 Hyperlipidemia (Medical) No significant medical problems (Medical) Prostate cancer (Medical) Speech-Language Pathology Swallow Evaluation REPORTING MANAGER Clinical Swallow Evaluation Start: 02/14/24 15:09 Freq: Status: Active Protocol: Document 02/14/24 15:09 SS (Rec: 02/14/24 15:23 SS [id number]) Clinical Swallow Evaluation Session Time Visit Start Time 14:10 Visit Stop Time 14:26 Total Visit Minutes [address] Amandeep Angeles Reason for Referral Dysphagia concerns Setting Assessment Location Acute Care Visit Type Note Type Initial evaluation Patient Information Identification Type Name,Wristband History Pt is an 88-year-old male who presentd to ED following coughing fit while eating, during which he fell forward and hit his face. Per H&P on , There was no apparent loss of consciousness. He was brought by paramedics to the emergency department for further evaluation. He is seen with his daughter Latoya at bedside who notes that he has recently had congestive heart failure issues and low blood pressures, with variable adjustments in his diuretics. 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 His cardiac troponin was mildly elevated in the emergency department. He has a history of a non STEMI 2 years ago when he presented with COVID. He denies chest pain or shortness of breath O exam is otherwise limited due to short-term memory impairment. Pt was referred for REPORTING MANAGER assessment and treatment of swallowing function. Subjective Observations Pt was reclined in bed upon REPORTING MANAGER arrival. Daughter and other family member at bedside . Pt at baseline in regards to cognitive function per their report. Family members report regular texture and thin liquids baseline diet. They also reported increased coughing and shortness of breath when eating and drinking. They reported no difficulty with communication. Pt disoriented during assessment, though able to follow 1-step directions and self-feed. Reported by Patient/Caregiver Other Symptoms Coughing,Difficulty swallowing liquids,Difficulty swallowing solids Baseline Feeding Method Needs some assistance The IDDSI Framework Protocol: IDDSI.1 Objective Assessment Mental Status Confused Oral Integrity WFL Dentition Missing teeth,Decay Lip Function Within normal limits Observation of Lips at Rest Symmetrical Pucker Within normal limits Lip Retraction Within normal limits Alternating Pucker/Lip Retraction Within normal limits Tongue Function Within normal limits Observations of Tongue at Rest Within normal limits Tongue Protrusion Within normal limits Tongue Retraction Within normal limits Tongue Lateralization Within normal limits Jaw Function Within normal limits Observation of Jaw at Rest Within normal limits Jaw Opening Within normal limits Jaw Closing Within normal limits Jaw Lateralization Within normal limits Jaw Protrusion Within normal limits Jaw Retraction Within normal limits Hard/Soft Palate Function Within normal limits Observations of Hard/Soft Palate Within normal limits Comment OME WNL. Food and Liquid Trials Position During Assessment Upright (90 degrees) Liquids Trialed Thin (IDDSI 0) Solid Trials Purred (IDDSI 4),Soft & Bite- sized (IDDSI 6),Regular (IDDSI 7) Administration Type Cup single sip,Cup consecutive sips,Straw,Self-feeding Oral Impairment Within normal limits Oral Phase Comments Functional mastication with timely oral transit and complete oral clearance. Pharyngeal Impairment Within normal limits Pharyngeal Phase Comments Pharyngeal swallow appears prompt. No overt s/sx of aspiration with provided consistencies. Pt completed consecutive sips of thin liquids via cup and straw without any concerns. Shortness of breath noted, though not interefering with swallowing coordination. Fatigue/Endurance Moderate fatigue [place] Swallow Protocol Yes Results Passed 3 oz water test. The IDDSI Framework Protocol: IDDSI.1 Findings Swallowing Function Within functional limits Severity of Swallow Impairment Within functional limits Contributing Factors to Swallow Reduced alertness or attention Impairment Prognosis Fair Based on Cognitive status,Comorbidities Comment Pt presents with oropharyngeal swallow function within normal limits. Aspiration risk appears low. Impact on Safety and Functioning Risk for aspiration Recommendations Instrumental Assessment No Swallowing Treatment No Recommended Solids Regular (IDDSI 7) Recommended Liquids Thin (IDDSI 0) Other Recommendations Recommend regular texture diet , thin liquids, and meds whole with liquid wash as tolerated . PCP referral for REPORTING MANAGER services and potential MBSS if family continues to note overt s/sx of aspiration. No further REPORTING MANAGER services indicated for dysphagia. Please re- consult if new concerns. Safety Precautions/Swallowing Supervision needed for all Recommendations meals,1 to 1 close supervision ,Reduce distractions,Remain upright (90 degrees) during all oral intake,Slow rate; swallow between bites,1 to 1 feeding assistance Medication Recommendations As Tolerated Discharge Recommendations Home Education Patient/Caregiver Education Family/caregivers expressed understanding of evaluation, Family/caregivers expressed agreement with goals & treatment plans
== END 2024-02-14 14:50 | disposition home or self-care (01) ==
LOC: ED 16:01 → AC 18:11
PROVIDERS: Admitting Provider Internal Medicine; Emergency Provider Emergency Medicine; Family Provider Family Medicine; PCP Internal Medicine; Referring Provider Emergency Medicine; Visit Provider Internal Medicine
DX: S02.2XXA Fracture of nasal bones, initial encounter for closed fracture (principal); S01.21XA Laceration without foreign body of nose, initial encounter; W18.30XA Fall on same level, unspecified, initial encounter; Y92.000 Kitchen of unspecified non-institutional (private) residence as the place of occurrence of the external cause; I50.32 Chronic diastolic (congestive) heart failure; R79.89 Other specified abnormal findings of blood chemistry; F32.A Depression, unspecified; E78.5 Hyperlipidemia, unspecified; F03.90 Unspecified dementia, unspecified severity, without behavioral disturbance, psychotic disturbance, mood disturbance, and anxiety; N18.32 Chronic kidney disease, stage 3b; R15.9 Full incontinence of feces; R32 Unspecified urinary incontinence; Z23 Encounter for immunization
CPT/HCPCS: 36415; 70450; 70486; 71250; 72125; 80048; 80053; 81003; 82550; 84484; 85025; 90471; 92610; 93005; 93307; 96374; 96376; 99284; G0378; 90715; J1170

== ENCOUNTER 2024-05-10 21:30 | Emergency (ER) | payer MEDICARE, BC, SELFPAY ==
[2024-02-13 20:41] VITALS: BMI 37.0
[2024-05-10] VITALS (9 sets, daily range): BP systolic 114–145; BP diastolic 59–66; PULSE 70–79; RESP 18–26; TEMP 36.2; O2SAT 93–96
--- NOTE | 2024-05-10 21:42 | DI.RAD.S_ITS ---
PROCEDURE: XR CHEST 1V INDICATIONS: chest pain TECHNIQUE: One view of the chest was acquired. COMPARISON: [facility], CR, XR CHEST 1V, 09/29/2023, 18:39. FINDINGS: Surgical changes and devices: None. Lungs and pleura: Low lung volumes are noted. This causes a crowded appearance to the lung markings and limits evaluation. Generalized increased interstitial prominence can be seen. No pneumothorax or large pleural effusion can be seen. Mediastinum: The cardiac contours are mildly enlarged. The aorta demonstrates calcification and tortuosity. Bones and chest wall: No suspicious bony lesions. Age-appropriate bony degenerative changes are seen. Overlying soft tissues appear unremarkable. IMPRESSION: Mild cardiomegaly and interstitial prominence can be seen. Please consider early CHF. Low lung volumes noted. Dictated by: Ramon Kidd M.D. on 05/10/2024 at 21:11 Approved by: Ramon Kidd M.D. on 05/10/2024 at 21:12
--- NOTE | 2024-05-10 21:42 | ED.EXTPRO ---
HPI - Extremity Problem General Chief complaint: Extremity Problem,Nontraumatic Stated complaint: swelling in leg and feet Time Seen by Provider: 05/10/24 21:42 History of Present Illness HPI Narrative: 88 year old male history of Alzheimer's dementia, CHF, comes into the ED from home with family for evaluation of right lower extremity swelling. States it has been ongoing and worsening for the past week. States that he has been compliant with his medications however he does live with his recently was having issues with providing him with the proper medications. At time of initial evaluation patient is at baseline he is alert to self place only but pleasantly confused family at bedside that this is his baseline. States that he has been Short of breath with exertion. Patient does follow up with Dr. Aguiar of Cardiology, family state that they saw him a few months ago and was told everything was okay. Patient not complaining of any other symptoms such as headache visual disturbances chest pain shortness breath fever chills nausea vomiting abdominal pain or any other GI/ symptoms. Related Data Home Medications Medication Instructions Recorded Confirmed aspirin 81 mg tablet,delayed 81 mg PO DAILY ##0 08/26/17 02/13/24 release donepezil 5 mg tablet 5 mg PO BEDTIME 07/02/21 02/13/24 escitalopram oxalate 10 mg tablet 10 mg PO DAILY 07/02/21 02/13/24 mirtazapine 15 mg tablet 7.5 mg PO BEDTIME 07/02/21 02/13/24 rosuvastatin 20 mg tablet 20 mg PO BEDTIME 07/02/21 02/13/24 Previous Rx's Medication Instructions Recorded nystatin 100,000 unit/gram topical 1 applic topical BID #60 grams 09/24/23 powder furosemide 40 mg tablet (Lasix) 60 mg (1.5 x 40 mg) PO DAILY #90 10/01/23 tabs Allergies Allergy/AdvReac Type Severity Reaction Status Date / Time ranitidine [RANITIDINE] Allergy Severe reaction Verified 02/13/24 19:29 not known. reported from Primary MD Review of Systems Review of Systems Narrative: General: Denies fever, chills, weight loss HEENT: Denies headache, eye drainage, eye irritation, head trauma, sore throat, voice change Cardiovascular: Denies any chest pain, palpitations, shortness of breath, tachycardia Respiratory: Denies any shortness of breath, cough, wheeze, stridor GI/: Denies any abdominal pain, nausea, vomiting, diarrhea, bright red blood per rectum, melanotic stools, urinary frequency, urinary retention, dysuria, hematuria MSK: Positive right lower extremity swelling Skin: Denies any rashes, lesions, discoloration Neuro: Denies any headache, lightheadedness, dizziness, fainting, weakness Psych: Denies SI/HI Patient History Medical History COVID-19 Prostate cancer Hyperlipidemia No significant medical problems Surgical History History of herniorrhaphy H/O hemorrhoidectomy Hx of cholecystectomy Social History household members: spouse Smoking Status: Never smoker alcohol intake: current Smoking Status: Never smoker alcohol intake frequency: holidays/special occasions only Exam Narrative Exam Narrative: General: Cooperative, comfortable, well-developed, not in acute distress HEENT: Normocephalic, atraumatic, PERRLA, normal sclera, eyelids normal, Neck: Active full range of motion, atraumatic Chest: Normal to inspection, negative crepitus, no overlying erythema ecchymosis Respiratory: Normal respiratory effort, not in acute respiratory distress, clear to auscultation bilaterally negative cough, wheeze, tachypnea, rhonchi, rales Cardiology: Regular rate rhythm negative gallop, murmur, rubs GI/: Normal to inspection, soft, nonrigid, no tenderness to palpation, exam deferred MSK: +3 pitting edema to the right lower extremity, + 1 pitting edema to the left lower extremity, Full range of active range of motion of all 4 extremities, atraumatic Skin: No rashes lesions noted Neuro: Alert awake oriented x2 patient had baseline history of Alzheimer's dementia, moves all 4 extremities spontaneously, cranial nerves intact, able to answer all questions appropriately follows commands appropriately Psych: Cooperative, negative suicidal or homicidal ideations Initial Vital Signs Initial Vital Signs: Vital Signs Pulse Oximetry 96 05/10/24 21:39 Course Orders Ordered: ED Orders 05/10/24 21:42 XR chest 1V Stat EKG-12 Lead Stat 05/10/24 21:43 US periph venous low extrem rt Stat 05/10/24 21:45 Complete Blood Count AUTO DIFF Stat Comprehensive Metabolic Panel Stat Lipase Stat NT-proBNP (BNP-Adult 18+) Stat Troponin & CK Cardiac Panel Stat 05/10/24 23:25 Trop I [Troponin I] Routine Discontinued Medications Oxycodone/Acetaminophen (Oxycodone/Apap 5/325 Prepack) 1 bottle MISC DIRECTED ONE Stop: 05/10/24 22:01 Last Admin: 05/10/24 22:14 Dose: Not Given Documented By: HNG Vital Signs Vital signs: Vital Signs - 8 hr 05/10/24 21:39 05/10/24 21:40 05/10/24 21:40 Temperature Pulse Rate 79 Respiratory Rate Blood Pressure 136/65 Pulse Oximetry 96 93 Oxygen Delivery Method 05/10/24 21:42 05/10/24 21:47 05/10/24 22:00 Temperature 97.1 F L Pulse Rate 76 70 Respiratory Rate 20 21 Blood Pressure 136/65 Pulse Oximetry 93 94 Oxygen Delivery Method Room Air 05/10/24 22:00 05/10/24 22:30 05/10/24 22:30 Temperature Pulse Rate 71 Respiratory Rate 21 Blood Pressure 122/59 L 129/64 Pulse Oximetry 95 Oxygen Delivery Method 05/10/24 23:00 05/10/24 23:00 05/10/24 23:30 Temperature Pulse Rate 72 74 Respiratory Rate 26 H 24 Blood Pressure 114/59 L Pulse Oximetry 95 94 Oxygen Delivery Method 05/10/24 23:31 05/10/24 23:31 Temperature Pulse Rate 77 Respiratory Rate 18 Blood Pressure 145/66 H Pulse Oximetry 94 Oxygen Delivery Method MDM - Extremity (Nontraumatic) Differential Diagnosis Differential diagnosis: Likely other (ACS, CHF exacerbation, DVT, cellulitis, electrolyte abnormality) Lab Data 05/10/24 21:45 05/10/24 21:45 Labs: Lab Results 05/10/24 05/10/24 Range/Units 21:45 23:25 WBC 8.1 (4.5-11.0) X10^3/uL RBC 4.36 L (4.5-5.9) X10^6/uL Hgb 13.4 L (13.5-17.5) g/dL Hct 40.6 L (41-53) % MCV 93.1 (80-100) fL MCH 30.7 (26-34) PG MCHC 33.0 (30-36) % RDW 15.4 H (11.6-14.8) % Plt Count 198 (150-400) X10^3/uL Neut % (Auto) 47.6 L (50-75) % Lymph % (Auto) 42.7 H (25-40) % [facility] % (Auto) 6.0 (3-14) % Eos % (Auto) 2.7 (2-4) % Baso % (Auto) 1.0 (0-2) % Neut # (Auto) 3800 (9836-8199) /uL Lymph # (Auto) 3400 (8026-9399) /uL [place] # (Auto) 500 (0-900) /uL Eos # (Auto) 200 (0-450) /uL Baso # (Auto) 100 (0-100) /uL Sodium 137 (137-145) mmol/L Potassium 3.6 (3.4-5.1) mmol/L Chloride 103 (98-107) mmol/L Carbon Dioxide 32 (22-32) mmol/L BUN 19 (9-20) mg/dL Creatinine 1.33 H (0.66-1.25) mg/dL Estimated GFR 52 L (>60) mL/min BUN/Creatinine Ratio 14.3 (6-22) Glucose 139 H (80-110) mg/dL Calcium 8.8 (8.4-10.2) mg/dL Total Bilirubin 0.8 (0.2-1.3) mg/dL AST 33 (17-59) IU/L ALT 24 (<50) IU/L Alkaline Phosphatase 123 (38-126) U/L Total Creatine Kinase 86 (55-170) U/L Troponin I 0.051 H 0.047 H (0.01-0.034) ng/mL NT-Pro-B Natriuret Pep 765 H (<450) pg/mL Total Protein 6.5 (6.3-8.2) g/dL Albumin 3.5 (3.5-5.0) g/dL Globulin 3.0 (1.7-4.1) g/dL Albumin/Globulin Ratio 1.2 (1.0-2.8) Lipase 52 (23-300) U/L Imaging Data Chest x-ray: Radiologist's Impression: [address] [address] XRay Report Signed Patient: Geovanni Bullock MR#: [id number] : 1935 Acct:[id number] Age/Sex: 88 / M Date of Service: 05/10/24 Loc: ED Accession Number: [id number] Procedure: XR chest 1V Ordering Provider: Kleber Dan D.O. PROCEDURE: XR CHEST 1V INDICATIONS: chest pain TECHNIQUE: One view of the chest was acquired. COMPARISON: [facility], XR CHEST 1V, 09/29/2023, 18:39. FINDINGS: Surgical changes and devices: None. Lungs and pleura: Low lung volumes are noted. This causes a crowded appearance to the lung markings and limits evaluation. Generalized increased interstitial prominence can be seen. No pneumothorax or large pleural effusion can be seen. Mediastinum: The cardiac contours are mildly enlarged. The aorta demonstrates calcification and tortuosity. Bones and chest wall: No suspicious bony lesions. Age-appropriate bony degenerative changes are seen. Overlying soft tissues appear unremarkable. IMPRESSION: Mild cardiomegaly and interstitial prominence can be seen. Please consider early CHF. Low lung volumes noted. US - DVT: Radiologist's Impression: [address] [address] Ultrasound Report Signed Patient: Geovanni Bullokc MR#: [id number] : 1935 Acct:[id number] Age/Sex: 88 / M Date of Service: 05/10/24 Loc: ED Accession Number: [id number] Procedure: US periph venous low extrem rt Ordering Provider: Kleber Dan D.O. PROCEDURE: US PERIPH VENOUS LOW EXTREM RT INDICATIONS: swelling TECHNIQUE: Real-time imaging, as well as color and pulse Doppler interrogation, were performed of the lower extremity deep veins from the inguinal ligament to the popliteal fossa, with documentation of the visualized calf veins. COMPARISON: [facility], , XR CHEST 1V, 05/10/2024, 21:55. FINDINGS: The common femoral, femoral, popliteal, and the visualized calf veins are normally compressible, and free of intraluminal thrombus. Color and pulse Doppler demonstrate normal phasic intraluminal flow. There is normal augmentation response to distal compression maneuver. Study is limited by soft tissue edema and patient habitus. IMPRESSION: No findings of lower extremity deep venous thrombosis. ECG Data Interpretation: EKG interpreted by ED physician sinuses 73 beats per minute, QTC 462, right bundle branch block noted, left axis deviation, nonspecific ST changes, no STEMI MDM Narrative Medical decision making narrative: 88-year-old male with a history of CHF Alzheimer's dementia hyperlipidemia presents from home with family for evaluation of right lower extremity swelling, states that he was seen here recently in the past for similar but it was to the left lower extremity. Family states that he lives with his and has had issues with taking his appropriate dosage of his Lasix and toresmide secondary to this. Patient at baseline not complaining of any shortness breath chest pain, however family states that he has been more dyspneic with exertion. Patient did have lab work imaging performed here in the emergency department. Patient with chronically elevated troponin, 1st troponin here was 0.051 with repeat 0.047 , EKG nonischemic in nature patient without any chest pain or shortness of breath. Patient without any leukocytosis, patient with creatinine at baseline currently at 1.33 patient not complaining of any chest pain shortness breath not requiring any supplemental oxygen, patient instructed to double up on his torsemide follow up with Cardiology outpatient setting strict return precautions given to him in family members they verbalized understanding of this agree with being discharged home with outpatient follow up Discharge Plan Departure Patient Disposition: Home Clinical Impression: CHF (congestive heart failure) Activity Restrictions/Additional Instructions: Please follow up with your deli manager for further evaluation treatment of your symptoms Please take your normal dose of torsemide twice a day instead of daily Please read the discharge instructions sheet carefully and bring all papers to all doctor follow-up visits, as it may contain information that your doctor may want to see. Disease processes change and evolve, if your symptoms worsen or if you develop any new symptoms that are concerning to you please return for evaluation. Your evaluation today does not show any evidence of any life-threatening/serious illnesses requiring admission to the hospital or surgery. Please follow-up with your doctor for re-evaluation in approximately 1 day. Seek immediate medical attention for any worrisome symptoms. *If you do not have a primary care provider please contact the [facility] Resource line at [phone]. They will ask some questions about your medical history and help get you set up with a doctor in the community. Prescriptions: No Action aspirin 81 MG tablet,delayed release (DR/EC) 81 mg PO DAILY Qty: 0 furosemide [Lasix] 40 mg tablet 60 mg PO DAILY Qty: 90 0RF Patient Comments: PER DAUGHTER ALICIA Rx Instructions: take 2 tablets on MWF donepezil 5 mg tablet 5 mg PO BEDTIME Patient Comments: TAKE 1 TABLET BY MOUTH NIGHTLY mirtazapine 15 mg tablet 7.5 mg PO BEDTIME Patient Comments: TAKE 1/2 TABLET BY MOUTH NIGHTLY AT BEDTIME escitalopram oxalate 10 mg tablet 10 mg PO DAILY Patient Comments: TAKE ONE TABLET BY MOUTH ONE TIME DAILY rosuvastatin 20 mg tablet 20 mg PO BEDTIME Patient Comments: TAKE ONE TABLET BY MOUTH ONE TIME DAILY nystatin 100,000 unit/gram powder 1 applic topical BID Qty: 60 0RF Referrals: Campos Quintana MD [Primary Care Provider] - Stand Alone Forms: Patient Portal/API/Survey
--- NOTE | 2024-05-10 21:43 | DI.US.S_ITS ---
PROCEDURE: US PERIPH VENOUS LOW EXTREM RT INDICATIONS: swelling TECHNIQUE: Real-time imaging, as well as color and pulse Doppler interrogation, were performed of the lower extremity deep veins from the inguinal ligament to the popliteal fossa, with documentation of the visualized calf veins. COMPARISON: [facility], CR, XR CHEST 1V, 05/10/2024, 21:55. FINDINGS: The common femoral, femoral, popliteal, and the visualized calf veins are normally compressible, and free of intraluminal thrombus. Color and pulse Doppler demonstrate normal phasic intraluminal flow. There is normal augmentation response to distal compression maneuver. Study is limited by soft tissue edema and patient habitus. IMPRESSION: No findings of lower extremity deep venous thrombosis. Note: Concordant preliminary findings given by the asset protection professional upon the completion of the examination to Dr. Dan. Dictated by: Ramon Kidd M.D. on 05/10/2024 at 22:02 Approved by: Ramon Kidd M.D. on 05/10/2024 at 22:03
--- NOTE | 2024-05-10 21:47 | EKG_ITS ---
[place] [id number] [place] [id number] Test Date: 2024-05-10 Pat Name: Geovanni Bullock Department: [facility] Room: Gender: Male Hoseman: : 1935 Requested By: Order Number: [id number] Reading MD: Jovan Durham MD Measurements Intervals [place] Rate: 73 P: 34 MD: 234 QRS: -75 QRSD: 120 T: -34 QT: 420 QTc: 462 Interpretive Statements Sinus rhythm with 1st degree AV block Left axis deviation Right bundle branch block Inferior infarct , age undetermined Anterolateral infarct , age undetermined Electronically Signed On 05-11-2024 17:06:44 PST by Jovan Durham MD
[2024-05-10 21:57] LABS: Add Manual Diff / Slide Review NO; Basophils Absolute Auto 100 /uL (0-100); Eosinophils Absolute Auto 200 /uL (0-450); Eosinophils Percent Auto 2.7 % (2-4); Hematocrit 40.6 % (41-53); Hemoglobin 13.4 g/dL (13.5-17.5); Lymphocytes Absolute Auto 3400 /uL (1100-4500); Lymphocytes Percent Auto 42.7 % (25-40); Mean Corpuscular Hemoglobin 30.7 PG (26-34); Mean Corpuscular Volume 93.1 fL (80-100); Monocytes Absolute Auto 500 /uL (0-900); Neutrophils Absolute Auto 3800 /uL (1500-7000); Neutrophils Percent Auto 47.6 % (50-75); Platelet Count 198 X10^3/uL (150-400); Red Blood Cell Count 4.36 X10^6/uL (4.5-5.9); Red Cell Distribution Width 15.4 % (11.6-14.8); White Blood Cell Count 8.1 X10^3/uL (4.5-11.0)
[2024-05-10 22:04] LABS: Alanine Aminotransferase 24 IU/L (<50); Albumin 3.5 g/dL (3.5-5.0); Albumin Globulin Ratio 1.2 (1.0-2.8); Alkaline Phosphatase 123 U/L (38-126); Aspartate Aminotransferase 33 IU/L (17-59); BUN Creatinine Ratio 14.3 (6-22); Bilirubin Total 0.8 mg/dL (0.2-1.3); Blood Urea Nitrogen 19 mg/dL (9-20); Calcium 8.8 mg/dL (8.4-10.2); Carbon Dioxide 32 mmol/L (22-32); Chloride 103 mmol/L (98-107); Creatine Kinase 86 U/L (55-170); Estimated Glomerular Filt Rate 52 mL/min (>60); Glucose 139 mg/dL (80-110); HEMOLYSIS < 15 (0-50); Lipase 52 U/L (23-300); Potassium 3.6 mmol/L (3.4-5.1); Sodium 137 mmol/L (137-145); Total Protein 6.5 g/dL (6.3-8.2)
[2024-05-10 22:16] LABS: NT-proBNP (BNP-Adult 18+) 765 pg/mL (<450); Troponin I 0.051 ng/mL (0.01-0.034)
--- NOTE | 2024-05-10 23:33 | PC.NURSE ---
Repeat troponin level drawn from existing IV
[2024-05-10 23:57] LABS: Troponin I 0.047 ng/mL (0.01-0.034)
[2024-05-11] VITALS: BP 108/56; PULSE 70; RESP 20; O2SAT 94
[2024-05-11] MEDS: TORSEMIDE 10 MG TABLET 20 MG PO (00:15)
== END 2024-05-11 00:24 | disposition home or self-care (01) ==
PROVIDERS: Emergency Provider Student in an Organized Health Care Education/Training Program; Family Provider Family Medicine; PCP Internal Medicine
DX: I50.9 Heart failure, unspecified (principal); R07.9 Chest pain, unspecified; R60.9 Edema, unspecified; I44.0 Atrioventricular block, first degree; I45.10 Unspecified right bundle-branch block
CPT/HCPCS: 36415; 71045; 80053; 82550; 83690; 83880; 84484; 85025; 93005; 93010; 93971; 99284

== ENCOUNTER 2024-06-10 10:54 | Emergency (ER) | payer MEDICARE, BC, SELFPAY ==
[2024-02-13 20:41] VITALS: BMI 37.0
[2024-06-10 11:05] VITALS: BP 136/76; PULSE 84; RESP 20; TEMP 37; O2SAT 94; BMI 34.4
--- NOTE | 2024-06-10 11:29 | PC.NURSE ---
Patient here in department with daughter Latoya who noticed the patient had increasing shortness of breath and his right lower extremity has increasing swelling and redness and there are several blisters on his right lincoln. Patient is resting in bed with unlabored breathing and even respirations, breath sounds are diminished with some expiratory wheeze
[2024-06-10 11:30] VITALS: BP 116/61; PULSE 75; RESP 25; O2SAT 93
[2024-06-10 12:00] VITALS: BP 113/65; PULSE 75; RESP 17; O2SAT 92
--- NOTE | 2024-06-10 12:03 | DI.US.S_ITS ---
PROCEDURE: [facility] VENOUS LOW EXTREM RT INDICATIONS: Leg swelling TECHNIQUE: Real-time imaging, as well as color and pulse Doppler interrogation, were performed of the lower extremity deep veins from the inguinal ligament to the popliteal fossa, with documentation of the visualized calf veins. COMPARISON: [facility], , [facility] VENOUS LOW EXTREM RT, 05/10/2024, 22:31. FINDINGS: The common femoral, femoral, popliteal, and the visualized calf veins are normally compressible, and free of intraluminal thrombus. Color and pulse Doppler demonstrate normal phasic intraluminal flow. There is normal augmentation response to distal compression maneuver. Soft tissue edema is seen distally, which limits evaluation of the calf vessels. IMPRESSION: No findings of lower extremity deep venous thrombosis. Dictated by: Ramon Kidd M.D. on 06/10/2024 at 12:27 Approved by: Ramon Kdid M.D. on 06/10/2024 at 12:28
--- NOTE | 2024-06-10 12:06 | ED_ITS ---
HPI - Extremity Problem General Chief complaint: Shortness of Breath/Dyspnea Stated complaint: Blisters on Right lower leg Time Seen by Provider: 06/10/24 11:12 Source: family Mode of arrival: Wheelchair History of Present Illness HPI Narrative: Patient here with daughter for complaints of increasing right leg swelling and fluid retention for the past 1 month. Patient seen here 1 month ago for the same and was discharged home. No changes in medications were made. Ultrasound leg was unremarkable. Patient has history of Alzheimer's dementia as well as CHF. Patient is on furosemide. Mainframe Architect is Dr. Aguiar. No chest pain or shortness of breath. Patient lower extremity now has some blisters from the swelling. Related Data Home Medications Medication Instructions Recorded Confirmed aspirin 81 mg tablet,delayed 81 mg PO DAILY ##0 08/26/17 02/13/24 release donepezil 5 mg tablet 5 mg PO BEDTIME 07/02/21 02/13/24 escitalopram oxalate 10 mg tablet 10 mg PO DAILY 07/02/21 02/13/24 mirtazapine 15 mg tablet 7.5 mg PO BEDTIME 07/02/21 02/13/24 rosuvastatin 20 mg tablet 20 mg PO BEDTIME 07/02/21 02/13/24 Previous Rx's Medication Instructions Recorded nystatin 100,000 unit/gram topical 1 applic topical BID #60 grams 09/24/23 powder furosemide 40 mg tablet (Lasix) 60 mg (1.5 x 40 mg) PO DAILY #90 10/01/23 tabs bumetanide 0.5 mg tablet 0.5 mg PO BID #14 tabs 06/10/24 cephalexin 500 mg capsule 500 mg PO QID #28 caps 06/10/24 Allergies Allergy/AdvReac Type Severity Reaction Status Date / Time ranitidine [RANITIDINE] Allergy Severe reaction Verified 02/13/24 19:29 not known. reported from Primary MD Review of Systems Review of Systems Narrative: GENERAL: Negative chills, fatigue, malaise, fever, sweats. HEENT: Negative sinus pain, ear pain, sore throat RESPIRATORY: Negative dyspnea, cough CARDIOVASCULAR: Negative chest pain, palpitations, positive peripheral edema GASTROINTESTINAL: Negative nausea, vomiting, abdominal pain : Negative dysuria, frequency, hematuria MUSCULOSKELETAL: Negative muscle or bony pain SKIN: Negative rash, skin lesions NEUROLOGIC: Negative weakness, numbness ROS Unobtainable: All systems reviewed & are unremarkable except as noted in HPI and below Patient History Medical History COVID-19 Prostate cancer Hyperlipidemia No significant medical problems Surgical History History of herniorrhaphy H/O hemorrhoidectomy Hx of cholecystectomy Social History household members: spouse Smoking Status: Never smoker alcohol intake: current Smoking Status: Never smoker alcohol intake frequency: holidays/special occasions only Exam Narrative Exam Narrative: GENERAL: in no distress, not toxic not dyspneic HEAD: Normocephalic. EYES: Pupils equal round ENT: Mucous membranes moist. NECK: Trachea midline. CARDIOVASCULAR: Regular rate and rhythm RESPIRATORY: Clear to auscultation. Breath sounds equal bilaterally. No wheezes, rales, or rhonchi. GASTROINTESTINAL: Abdomen soft, non-tender EXTREMITIES: No gross deformities. Exam of bilateral legs. Thighs to toes exposed bilaterally. There is extensive edema erythema of the right lower extremity compared to the left. Foot is warm soft and pink though. Does have brisk cap refills. There is scattered small vesicles on the calf. No oozing. No pus. BACK: No flank tenderness. NEURO: Awake alert oriented x2. SKIN: Warm and dry PSYCH: Not anxious, is cooperative Initial Vital Signs Initial Vital Signs: Vital Signs Temperature 98.6 F 06/10/24 11:05 Pulse Rate 84 06/10/24 11:05 Respiratory Rate 20 06/10/24 11:05 Blood Pressure 136/76 06/10/24 11:05 Pulse Oximetry 94 06/10/24 11:05 Oxygen Delivery Method Room Air 06/10/24 11:05 Course Orders Ordered: Discontinued Medications Cephalexin HCl (Cephalexin 250 Mg Capsule) 500 mg PO NOW ONE Stop: 06/10/24 13:58 Last Admin: 06/10/24 14:00 Dose: 500 mg Documented By: AMARI Furosemide (Furosemide 40 Mg/4 Ml Vial) 40 mg IV NOW ONE Stop: 06/10/24 12:57 Last Admin: 06/10/24 13:25 Dose: 40 mg Documented By: AMARI Spironolactone (Spironolactone 25 Mg Tablet) 25 mg PO NOW ONE Stop: 06/10/24 12:57 Last Admin: 06/10/24 13:30 Dose: 25 mg Documented By: AMARI Vital Signs Vital signs: Vital Signs - 8 hr 06/10/24 11:05 06/10/24 11:05 06/10/24 11:05 Temperature 98.6 F Pulse Rate 84 84 Respiratory Rate 20 Blood Pressure 136/76 136/76 Pulse Oximetry 94 94 Oxygen Delivery Method Room Air 06/10/24 11:30 06/10/24 11:30 06/10/24 12:00 Temperature Pulse Rate 75 Respiratory Rate 25 H Blood Pressure 116/61 113/65 Pulse Oximetry 93 Oxygen Delivery Method 06/10/24 12:00 06/10/24 12:30 06/10/24 12:30 Temperature Pulse Rate 75 79 Respiratory Rate 17 25 H Blood Pressure 113/61 Pulse Oximetry 92 91 Oxygen Delivery Method Room Air 06/10/24 13:00 06/10/24 13:00 06/10/24 13:30 Temperature Pulse Rate 77 79 Respiratory Rate 22 23 Blood Pressure 128/63 Pulse Oximetry 91 92 Oxygen Delivery Method 06/10/24 13:30 Temperature Pulse Rate Respiratory Rate Blood Pressure 110/65 Pulse Oximetry Oxygen Delivery Method MDM - Extremity (Nontraumatic) Lab Data 06/10/24 11:16 06/10/24 11:16 Labs: Lab Results 06/10/24 Range/Units 11:16 WBC 8.9 (4.5-11.0) X10^3/uL RBC 4.72 (4.5-5.9) X10^6/uL Hgb 14.5 (13.5-17.5) g/dL Hct 43.8 (41-53) % MCV 92.7 (80-100) fL MCH 30.7 (26-34) PG MCHC 33.1 (30-36) % RDW 14.8 (11.6-14.8) % Plt Count 199 (150-400) X10^3/uL Neut % (Auto) 45.0 L (50-75) % Lymph % (Auto) 45.6 H (25-40) % [place] % (Auto) 6.5 (3-14) % Eos % (Auto) 2.4 (2-4) % Baso % (Auto) 0.5 (0-2) % Neut # (Auto) 4000 (6475-1492) /uL Lymph # (Auto) 4100 (5669-8067) /uL [place] # (Auto) 600 (0-900) /uL Eos # (Auto) 200 (0-450) /uL Baso # (Auto) 0 (0-100) /uL Sodium 142 (137-145) mmol/L Potassium 3.4 (3.4-5.1) mmol/L Chloride 105 (98-107) mmol/L Carbon Dioxide 29 (22-32) mmol/L BUN 23 H (9-20) mg/dL Creatinine 1.41 H (0.66-1.25) mg/dL Estimated GFR 49 L (>60) mL/min BUN/Creatinine Ratio 16.3 (6-22) Glucose 98 (80-110) mg/dL Calcium 9.9 (8.4-10.2) mg/dL Total Bilirubin 1.1 (0.2-1.3) mg/dL AST 41 (17-59) IU/L ALT 29 (<50) IU/L Alkaline Phosphatase 131 H (38-126) U/L NT-Pro-B Natriuret Pep 495 H (<450) pg/mL Total Protein 7.2 (6.3-8.2) g/dL Albumin 4.1 (3.5-5.0) g/dL Globulin 3.1 (1.7-4.1) g/dL Albumin/Globulin Ratio 1.3 (1.0-2.8) Imaging Data Chest x-ray: Radiologist's Impression: [address] [address] XRay Report Signed Patient: Geovanni Bullock MR#: [id number] : 1935 Acct:[id number] Age/Sex: 88 / M Date of Service: 06/10/24 Loc: ED Accession Number: [id number] Procedure: XR chest 1V Ordering Provider: Campos Lew MD PROCEDURE: XR CHEST 1V INDICATIONS: chest pain TECHNIQUE: One view of the chest was acquired. COMPARISON: [facility], , XR CHEST 1V, 05/10/2024, 21:55. FINDINGS: Surgical changes and devices: None. Lungs and pleura: Diffuse interstitial prominence with central vascular congestion. Small bilateral pleural effusions. Streaky bibasilar opacities likely representing atelectasis given low lung volumes. No dense consolidation. No pneumothorax. Mediastinum: Mediastinal contours appear normal. Heart size is mildly enlarged. Bones and chest wall: No suspicious bony lesions. Overlying soft tissues appear unremarkable. IMPRESSION: Cardiomegaly with findings suggestive of pulmonary edema/CHF. Dictated by: David Waterman M.D. on 06/10/2024 at 13:44 Approved by: David Waterman M.D. on 06/10/2024 at 13:45 US - DVT: Radiologist's Impression: [address] [address] Ultrasound Report Signed Patient: Geovanni Bullock MR#: [id number] : 1935 Acct:[id number] Age/Sex: 88 / M Date of Service: 06/10/24 Loc: ED Accession Number: [id number] Procedure: perip venous low extrem rt Ordering Provider: Campos Lew MD PROCEDURE: PERIP VENOUS LOW EXTREM RT INDICATIONS: Leg swelling TECHNIQUE: Real-time imaging, as well as color and pulse Doppler interrogation, were performed of the lower extremity deep veins from the inguinal ligament to the popliteal fossa, with documentation of the visualized calf veins. COMPARISON: [facility], PERIP VENOUS LOW EXTREM RT, 05/10/2024, 22:31. FINDINGS: The common femoral, femoral, popliteal, and the visualized calf veins are normally compressible, and free of intraluminal thrombus. Color and pulse Doppler demonstrate normal phasic intraluminal flow. There is normal augmentation response to distal compression maneuver. Soft tissue edema is seen distally, which limits evaluation of the calf vessels. IMPRESSION: No findings of lower extremity deep venous thrombosis. Dictated by: Ramon Kidd M.D. on 06/10/2024 at 12:27 Approved by: Ramon Kidd M.D. on 06/10/2024 at 12:28 [facility] Narrative Medical decision making narrative: Patient here with daughter for complaints of increasing right leg swelling and fluid retention for the past 1 month. Patient seen here 1 month ago for the same and was discharged home. No changes in medications were made. Ultrasound leg was unremarkable. Patient has history of Alzheimer's dementia as well as CHF. Patient is on furosemide. Mainframe Architect is Dr. Aguiar. No chest pain or shortness of breath. Patient lower extremity now has some blisters from the swelling. After history and exam CBC CMP BNP ultrasound leg chest x-ray diuresis cardiology consult/admit [facility] Medical records reviewed: ER visit here 1 month ago Differential considered: Includes but not limited to fluid retention DVT SVT Lab Test results independently reviewed as above. Pertinent findings: BUN 23 creatinine 1.41 GFR 49 Imaging studies independently reviewed: Ultrasound right leg no DVT chest x-ray no acute finding Consultations: 12:[address] Aguiar, patient's auto mechanic apprentice. Patient is on furosemide 20 mg daily. He recommends patient to get diuresed here. May give Lasix 40 mg IV, start spironolactone 25 mg twice a day. Give Jardiance 10 mg 1:45 p.m.. Spoke with hospitalist, Dr. Delcid, he is see patient at bedside. Patient does not want be admitted. He recommends patient to go home on Bumex 0.5 mg twice a day. Stop the torsemide. Patient has appointment with his auto mechanic apprentice in 2 days. Patient to go home on Keflex one-week duration Treatments: Lasix spironolactone Jardiance Re-evaluations: 1:56 p.m.. Reviewed results with patient and daughter. Patient does not want be admitted. Patient has seen Dr. Delcid, he is offered admission but they declined. Discussion: Appropriate for discharge home. Dr. Delcid has seen patient at bedside in the emergency department. Patient and daughter desire discharge home. He does not want to be admitted. Bumex has been prescribed. Return precautions reviewed. They desire discharge home. Patient has no respiratory complaints or problems today. Not requiring supplemental oxygen. Diagnosis: Peripheral edema Discharge Plan Departure Patient Disposition: Home Clinical Impression: Edema, peripheral Instructions: DI for Peripheral Edema-Unilateral Activity Restrictions/Additional Instructions: Please discontinue torsemide. To new prescriptions have been provided for you. Please get them filled today. Please see your auto mechanic apprentice as scheduled. See your family doctor within a week for re-evaluation of your leg swelling as well. Return if worse if any questions or concerns. Prescriptions: New cephalexin 500 mg capsule 500 mg PO QID Qty: 28 0RF bumetanide 0.5 mg tablet 0.5 mg PO BID Qty: 14 0RF No Action aspirin 81 MG tablet,delayed release (DR/EC) 81 mg PO DAILY Qty: 0 furosemide [Lasix] 40 mg tablet 60 mg PO DAILY Qty: 90 0RF Patient Comments: PER DAUGHTER ALICIA Rx Instructions: take 2 tablets on MWF donepezil 5 mg tablet 5 mg PO BEDTIME Patient Comments: TAKE 1 TABLET BY MOUTH NIGHTLY mirtazapine 15 mg tablet 7.5 mg PO BEDTIME Patient Comments: TAKE 1/2 TABLET BY MOUTH NIGHTLY AT BEDTIME escitalopram oxalate 10 mg tablet 10 mg PO DAILY Patient Comments: TAKE ONE TABLET BY MOUTH ONE TIME DAILY rosuvastatin 20 mg tablet 20 mg PO BEDTIME Patient Comments: TAKE ONE TABLET BY MOUTH ONE TIME DAILY nystatin 100,000 unit/gram powder 1 applic topical BID Qty: 60 0RF Referrals: Campos Quintana MD [Primary Care Provider] - Stand Alone Forms: Patient Portal/API/Survey
[2024-06-10 12:19] LABS: Alanine Aminotransferase 29 IU/L (<50); Albumin 4.1 g/dL (3.5-5.0); Albumin Globulin Ratio 1.3 (1.0-2.8); Alkaline Phosphatase 131 U/L (38-126); Aspartate Aminotransferase 41 IU/L (17-59); BUN Creatinine Ratio 16.3 (6-22); Bilirubin Total 1.1 mg/dL (0.2-1.3); Blood Urea Nitrogen 23 mg/dL (9-20); Calcium 9.9 mg/dL (8.4-10.2); Carbon Dioxide 29 mmol/L (22-32); Chloride 105 mmol/L (98-107); Estimated Glomerular Filt Rate 49 mL/min (>60); Globulin 3.1 g/dL (1.7-4.1); Glucose 98 mg/dL (80-110); HEMOLYSIS 16 (0-50); Potassium 3.4 mmol/L (3.4-5.1); Sodium 142 mmol/L (137-145); Total Protein 7.2 g/dL (6.3-8.2)
[2024-06-10 12:22] LABS: Add Manual Diff / Slide Review NO; Basophils Absolute Auto 0 /uL (0-100); Basophils Percent Auto 0.5 % (0-2); Eosinophils Absolute Auto 200 /uL (0-450); Eosinophils Percent Auto 2.4 % (2-4); Hematocrit 43.8 % (41-53); Hemoglobin 14.5 g/dL (13.5-17.5); Lymphocytes Absolute Auto 4100 /uL (1100-4500); Lymphocytes Percent Auto 45.6 % (25-40); Mean Corpuscular HGB Conc 33.1 % (30-36); Mean Corpuscular Hemoglobin 30.7 PG (26-34); Mean Corpuscular Volume 92.7 fL (80-100); Monocytes Absolute Auto 600 /uL (0-900); Monocytes Percent Auto 6.5 % (3-14); Neutrophils Absolute Auto 4000 /uL (1500-7000); Platelet Count 199 X10^3/uL (150-400); Red Blood Cell Count 4.72 X10^6/uL (4.5-5.9); Red Cell Distribution Width 14.8 % (11.6-14.8); White Blood Cell Count 8.9 X10^3/uL (4.5-11.0)
[2024-06-10 12:27] LABS: NT-proBNP (BNP-Adult 18+) 495 pg/mL (<450)
[2024-06-10 12:30] VITALS: BP 113/61; PULSE 79; RESP 25; O2SAT 91
[2024-06-10 13:00] VITALS: BP 128/63; PULSE 77; RESP 22; O2SAT 91
[2024-06-10] MEDS: FUROSEMIDE 40 MG/4 ML VIAL IV (13:25)
[2024-06-10 13:30] VITALS: BP 110/65; PULSE 79; RESP 23; O2SAT 92
[2024-06-10] MEDS: SPIRONOLACTONE 25 MG TABLET PO (13:30)
[2024-06-10] MEDS: cephALEXin 250 MG CAPSULE 500 MG PO (14:00)
--- NOTE | 2024-06-10 14:00 | PM.CN ---
History of Present Illness Consult details Date Patient Seen: 06/10/24 Time Patient Seen: 14:00 Chief complaint: Blisters on Right lower leg Reason for consult: LE edema, cellulitis Narrative: 88 year old male with PMH of CHFpEF, HLD, dementia, prior NSTEMI who presented with worsening R leg appearance and redness over the past 3 days. He is constantly short of breath, not particularly worse than normal but possibly a bit over the past few weeks. R leg is a bit more swollen than normal, but chronically R leg is bigger than his left which is unchanged. Daughter denies dyspnea, chest pain, abdominal pain, nausea, vomiting, or decreased appetite. He denied complaints of fever or chills as well. In the emergency room, the patient's vital signs are unremarkable and he was not hypoxic on room air. Laboratory evaluation showed a normal white blood cell count, an elevated but at apparent baseline creatinine at 1.41, and chronically mildly elevated troponin which down trended on repeat examination. Discussed admission for observation with diuresis vs discharge home, patient's daughter and patient elected for trial of discharge home. Meds Home Medications and Allergies Home Medications Medication Instructions Recorded Confirmed Type aspirin 81 mg tablet,delayed 81 mg PO DAILY ##0 08/26/17 02/13/24 History release donepezil 5 mg tablet 5 mg PO BEDTIME 07/02/21 02/13/24 History escitalopram oxalate 10 mg tablet 10 mg PO DAILY 07/02/21 02/13/24 History mirtazapine 15 mg tablet 7.5 mg PO BEDTIME 07/02/21 02/13/24 History rosuvastatin 20 mg tablet 20 mg PO BEDTIME 07/02/21 02/13/24 History nystatin 100,000 unit/gram topical 1 applic topical BID #60 grams 09/24/23 02/13/24 Rx powder furosemide 40 mg tablet (Lasix) 60 mg (1.5 x 40 mg) PO DAILY #90 10/01/23 02/13/24 Rx tabs bumetanide 0.5 mg tablet 0.5 mg PO BID #14 tabs 06/10/24 Rx cephalexin 500 mg capsule 500 mg PO QID #28 caps 06/10/24 Rx Allergies Allergy/AdvReac Type Severity Reaction Status Date / Time ranitidine [RANITIDINE] Allergy Severe reaction Verified 02/13/24 19:29 not known. reported from Primary MD Review of Systems Review of Systems Narrative: All other systems reviewed with the patient and are negative unless otherwise stated. Exam Vital Signs (past 8 hours): - 06/10/24 11:05 06/10/24 11:05 06/10/24 11:05 Temperature 98.6 F Pulse Rate 84 84 Respiratory Rate 20 Blood Pressure 136/76 136/76 Pulse Oximetry 94 94 Oxygen Delivery Method Room Air 06/10/24 11:30 06/10/24 11:30 06/10/24 12:00 Temperature Pulse Rate 75 Respiratory Rate 25 H Blood Pressure 116/61 113/65 Pulse Oximetry 93 Oxygen Delivery Method 06/10/24 12:00 06/10/24 12:30 06/10/24 12:30 Temperature Pulse Rate 75 79 Respiratory Rate 17 25 H Blood Pressure 113/61 Pulse Oximetry 92 91 Oxygen Delivery Method Room Air 06/10/24 13:00 06/10/24 13:00 06/10/24 13:30 Temperature Pulse Rate 77 79 Respiratory Rate 22 23 Blood Pressure 128/63 Pulse Oximetry 91 92 Oxygen Delivery Method 06/10/24 13:30 Temperature Pulse Rate Respiratory Rate Blood Pressure 110/65 Pulse Oximetry Oxygen Delivery Method Oxygen Delivery Method Room Air Narrative Exam Narrative: NAD, alert and oriented. Fluent speech. Lungs are clear, normal rate and effort. Heart is regular, no murmur gallop or rub. Abdomen is soft, non distended. Extremities with R leg 3+ edema with erythema and warmth circumferentially with bullae, no purulence, non-tender. left leg +1 to trace edema pretibial area. Objective Labs 06/10/24 11:16 06/10/24 11:16 Labs: Laboratory Results - last 24 hr 06/10/24 11:16 WBC 8.9 RBC 4.72 Hgb 14.5 Hct 43.8 MCV 92.7 MCH 30.7 MCHC 33.1 RDW 14.8 Plt Count 199 Neut % (Auto) 45.0 L Lymph % (Auto) 45.6 H [place] % (Auto) 6.5 Eos % (Auto) 2.4 Baso % (Auto) 0.5 Neut # (Auto) 4000 Lymph # (Auto) 4100 [place] # (Auto) 600 Eos # (Auto) 200 Baso # (Auto) 0 Sodium 142 Potassium 3.4 Chloride 105 Carbon Dioxide 29 BUN 23 H Creatinine 1.41 H Estimated GFR 49 L BUN/Creatinine Ratio 16.3 Glucose 98 Calcium 9.9 Total Bilirubin 1.1 AST 41 ALT 29 Alkaline Phosphatase 131 H NT-Pro-B Natriuret Pep 495 H Total Protein 7.2 Albumin 4.1 Globulin 3.1 Albumin/Globulin Ratio 1.3 PFSH Medical History COVID-19 Prostate cancer Hyperlipidemia No significant medical problems Surgical History History of herniorrhaphy H/O hemorrhoidectomy Hx of cholecystectomy Social History household members: spouse Tobacco & Substance Use Smoking Status: Never smoker alcohol intake: current Assessment & Plan Assessment & Plan narrative: Assessment: 1. R leg cellulitis 2. Acute on chronic diastolic heart failure 3. CKD stage III Plan: - start cephalexin for non-purulent R leg celluitis w/ bullae. There is no evidence of sepsis and patient has been ambulating without changes. Cr is stable and at apparent baseline based on review of prior lab evaluations. DVT study was negative. There is no evidence of sepsis or severe infection at this time. I did equal opportunity counselor on monitoring his leg at home, and worrisome signs including worsening redness, drainage, or pain that should warrant re-evaluation in the emergency department. - change diuretic to bumex 0.5 mg BID. Counseled on how to follow patient's weight at home, recommended blood pressure monitoring at home as well, which the daughter will do. Recommended returning if patient shows signs of hypotension such as dizziness, altered mentation or SBP is persistently <90 systolic at home with new diuretic. Would like to obtain labs [facility], recommended in a few days with medication with initiation of bumex. Advised to watch his weight, goal is to drop weight slowly at home, but if sudden drop of 4-5 lbs after diuretic can reduce to once daily. Patient's most recent TTE 02/2024 showed a normal EF. Code: Full, surrogate is patient's daughter I have utilized all available immediate resources to obtain, update, or review the patient's current medications. Dispo: Patient was discharged from the emergency room after the above discussion with the patient and his daughter. Additional history obtained via discussions with the ER provider and patient's daughter. These discussions contributed to the creation of the above assessment and plan. I have reviewed patient's presenting documentation, labs, and imaging personally. Time-Based Coding :: [TOTAL MINUTES] spent with patient and on the chart (including review of chart, obtaining history, exam, reviewing outside data, placing orders, documenting exam and treatment plan, and counseling patient) on [DATE].
== END 2024-06-10 14:13 | disposition home or self-care (01) ==
PROVIDERS: Emergency Provider Emergency Medicine; Family Provider Family Medicine; PCP Internal Medicine
DX: I50.33 Acute on chronic diastolic (congestive) heart failure (principal); R60.0 Localized edema; G30.9 Alzheimer's disease, unspecified; F02.80 Dementia in other diseases classified elsewhere, unspecified severity, without behavioral disturbance, psychotic disturbance, mood disturbance, and anxiety; L03.115 Cellulitis of right lower limb; N18.30 Chronic kidney disease, stage 3 unspecified; I25.2 Old myocardial infarction
CPT/HCPCS: 36415; 71045; 80053; 83880; 85025; 93971; 96374; 99284; J1940